=== PATIENT | female | born 1970 | race Hispanic/Latino ===

== ENCOUNTER 2018-05-30 13:58 | Emergency (ER) | payer OTHER ==
[2018-05-30] VITALS (7 sets, daily range): BP systolic 117–195; BP diastolic 51–111
[~2018-05-30] VITALS: Ht 149.9 cm; Wt 59.0 kg
[~2018-05-30 13:58] MED LIST: CIPRO500 MG PO; NORCO 5-325 TA1 EACH ORAL; NOVOLIN 70/305 UNIT1 SUBQ; ONDANSETRON ODT4 MG BC; RANITIDINE HCL150 MG ORAL
--- NOTE | 2018-05-30 14:03 | NUR ---
ED Nurse Note: Patient brought in to ER by ambulance from home due to severe abdominal pain 12/03. Pt aao x4 and Italian speaker and son who speaks Montenegrin at the bedside. pt has shunt on RUE and gets dialysis every T, , S and per son, she got last dialysis this morning. 5 Lt toes and 1 Rt toe are amputated. site clean and intact.
--- NOTE | 2018-05-30 14:05 | NUR ---
ED Nurse Note: pt currently having N/V but no diarrhea.
--- NOTE | 2018-05-30 14:10 | Emergency Room Report ---
History of Present Illness General Chief Complaint: Abdominal Pain Source: Patient, Medical Record Present Illness HPI Patient is a 47-year-old female presented after increased left upper quadrant abdominal pain. Patient had onset of symptoms approximate 3 days ago. This had worsened over time. Patient had prior history of abdominal surgeries which included biliary stent as well as renal surgery. Patient is currently on dialysis and has had previous amputation to the right foot. Patient is patient reports having dialysis today. Patient had reportedly had some episodes of vomiting which she denied having any hematemesis or bloody stools. Allergies: Coded Allergies: No Known Allergies (Unverified , 11/10/12) Patient History Last Menstrual Period: N/A Now: No : 1 Para: 1 Reviewed Nursing Documentation: PMH: Agreed; PSxH: Agreed Nursing Documentation-PMH Hx Cardiac Problems: No - dialysis Hx Hypertension: Yes Hx Diabetes: Yes Hx Gastrointestinal Problems: Yes Hx Dialysis: Yes - skip on friday. Review of Systems All Other Systems: negative except mentioned in HPI Physical Exam Vital Signs Date Time Temp Pulse Resp B/P (MAP) Pulse Ox O2 Delivery O2 Flow Rate FiO2 05/30/18 13:46 98.8 80 18 132/92 100 Room Air General Appearance: alert, GCS 15, Chronically Ill Eyes: bilateral eye PERRL Neck: limited range of motion Respiratory: decreased breath sounds Cardiovascular #1: normal peripheral pulses Gastrointestinal: tenderness - left upper abdomen, other - ascites, right nephrostomy site c/d/i Musculoskeletal: normal inspection, other - foot metatarsal amputation Neurologic: normal inspection, alert, oriented x3, responsive Psychiatric: normal inspection Skin: normal inspection, normal color Medical Decision Making Diagnostic Impression: Primary Impression: Abdominal pain Additional Impressions: ESRD (end stage renal disease) Nephrostomy status Cardiomegaly ER Course Patient presented for abdominal pain. Differential diagnoses included ischemic bowel, appendicitis, perforated viscus, abdominal aortic aneurysm, inferior myocardial infarction, viral gastroenteritis among others. Because of complexity of patient's case laboratory testing and imaging studies were ordered. Laboratory testing showed normal white blood count. Patient was noted to have some hematuria. CT the abdomen pelvis ordered without contrast due to patient's prior history of end-stage renal disease.Patient was given pain medications IV as well as acid blockers. She was noted to have some improvement.CT of the abdomen pelvis read by radiology showed right-sided percutaneous nephrostomy without hydronephrosis nonspecific thickening of the GI tract as well as a large amount of fluid in the peritoneal cavity patient was discussed with Dr. Koffi Kay for transfer to [facility]. Labs Test 05/30/18 14:15 05/30/18 15:13 White Blood Count 7.4 K/UL (4.8-10.8) Red Blood Count 3.34 M/UL (4.20-5.40) Hemoglobin 10.2 G/DL (12.0-16.0) Hematocrit 31.7 % (37.0-47.0) Mean Corpuscular Volume 95 FL (80-99) Mean Corpuscular Hemoglobin 30.4 PG (27.0-31.0) Mean Corpuscular Hemoglobin Concent 32.1 G/DL (32.0-36.0) Red Cell Distribution Width 14.4 % (11.6-14.8) Platelet Count 172 K/UL (150-450) Mean Platelet Volume 9.4 FL (6.5-10.1) Neutrophils (%) (Auto) 77.6 % (45.0-75.0) Lymphocytes (%) (Auto) 9.8 % (20.0-45.0) Monocytes (%) (Auto) 3.3 % (1.0-10.0) Eosinophils (%) (Auto) 7.5 % (0.0-3.0) Basophils (%) (Auto) 1.8 % (0.0-2.0) Prothrombin Time 11.4 SEC (9.30-11.50) Prothromb Time International Ratio 1.1 (0.9-1.1) Activated Partial Thromboplast Time 30 SEC (23-33) Sodium Level 137 MMOL/L (136-145) Potassium Level 3.9 MMOL/L (3.5-5.1) Chloride Level 97 MMOL/L (98-107) Carbon Dioxide Level 30 MMOL/L (21-32) Anion Gap 10 mmol/L (5-15) Blood Urea Nitrogen 10 mg/dL (7-18) Creatinine 2.6 MG/DL (0.55-1.30) Estimat Glomerular Filtration Rate 19.8 mL/min (>60) Glucose Level 208 MG/DL (74-106) Calcium Level 8.9 MG/DL (8.5-10.1) Total Bilirubin 0.5 MG/DL (0.2-1.0) Aspartate Amino Transf (AST/SGOT) 32 U/L (15-37) Alanine Aminotransferase (ALT/SGPT) 24 U/L (12-78) Alkaline Phosphatase 402 U/L (46-116) Total Protein 8.5 G/DL (6.4-8.2) Albumin 3.1 G/DL (3.4-5.0) Globulin 5.4 g/dL Albumin/Globulin Ratio 0.6 (1.0-2.7) Lipase 66 U/L (73-393) Urine Color Yellow Urine Appearance Cloudy Urine pH 8 (4.5-8.0) Urine Specific Grace 1.030 (1.005-1.035) Urine Protein 4+ (NEGATIVE) Urine Glucose (UA) 3+ (NEGATIVE) Urine Ketones Negative (NEGATIVE) Urine Blood 5+ (NEGATIVE) Urine Nitrite Negative (NEGATIVE) Urine Bilirubin Negative (NEGATIVE) Urine Urobilinogen Normal MG/DL (0.0-1.0) Urine Leukocyte Esterase 3+ (NEGATIVE) Urine RBC Tntc /HPF (0 - 2) Urine WBC 15-20 /HPF (0 - 2) Urine Squamous Epithelial Cells Moderate /LPF (NONE/OCC) Urine Amorphous Sediment Many /LPF (NONE) Urine Bacteria Many /HPF (NONE) EKG Diagnostic Results Rate: normal - 84 Rhythm: NSR ST Segments: no acute changes Rhythm Strip Diag. Results EP Interpretation: yes Rhythm: NSR, no PVC's, no ectopy Last Vital Signs Date Time Temp Pulse Resp B/P (MAP) Pulse Ox O2 Delivery O2 Flow Rate FiO2 05/30/18 13:55 84 28 Room Air 05/30/18 13:55 98.0 193/79 100 Status: improved Disposition: XFER SHT-TRM HOSP Condition: Serious Arron Toro MD May 30, 2018 14:10
--- NOTE | 2018-05-30 14:10 | NUR ---
ED Nurse Note: Artificial urinary track opening in Rt lower back present attatching to the bag. urine sample was collected from urine bag.
[2018-05-30] MEDS ORDERED: Pantoprazole Inj IV ONE (14:15)
[2018-05-30] MEDS ORDERED: Morphine Sulfate 4mg/ml Inj (IV USE ONLY) IVP ONE (14:15)
[2018-05-30 14:35] LABS: BASOPHILS % (AUTO) 1.8 % (0.0-2.0); EOSINOPHILS % (AUTO) 7.5 % (0.0-3.0); HEMATOCRIT 31.7 % (37.0-47.0); HEMOGLOBIN 10.2 G/DL (12.0-16.0); LYMPHOCYTES % (AUTO) 9.8 % (20.0-45.0); MEAN CORPUSCULAR VOLUME 95 FL (80-99); MONOCYTES % (AUTO) 3.3 % (1.0-10.0); NEUTROPHILS % (AUTO) 77.6 % (45.0-75.0); PLATELET COUNT 172 K/UL (150-450); RED BLOOD COUNT 3.34 M/UL (4.20-5.40); RED CELL DISTRIBUTION WIDTH 14.4 % (11.6-14.8); WHITE BLOOD COUNT 7.4 K/UL (4.8-10.8)
[2018-05-30 14:39] LABS: INR 1.1 (0.9-1.1)
[2018-05-30 14:50] LABS: ANION GAP 10 mmol/L (5-15); BLOOD UREA NITROGEN 10 mg/dL (7-18); CALCIUM 8.9 MG/DL (8.5-10.1); CARBON DIOXIDE 30 MMOL/L (21-32); CHLORIDE 97 MMOL/L (98-107); CREATININE 2.6 MG/DL (0.55-1.30); POTASSIUM 3.9 MMOL/L (3.5-5.1); SODIUM 137 MMOL/L (136-145)
[2018-05-30 14:55] LABS: ALANINE AMINOTRANSFERASE 24 U/L (12-78); ALBUMIN 3.1 G/DL (3.4-5.0); ALBUMIN/GLOBULIN RATIO 0.6 (1.0-2.7); ALKALINE PHOSPHATASE 402 U/L (46-116); ASPARTATE AMINO TRANSFERASE 32 U/L (15-37); BILIRUBIN,TOTAL 0.5 MG/DL (0.2-1.0)
[2018-05-30 15:21] LABS: APPEARANCE,URINE CLOUDY; BILIRUBIN, URINE NEGATIVE (NEGATIVE); GLUCOSE, URINE (UA) 3+ (NEGATIVE); KETONES,URINE NEGATIVE (NEGATIVE); LEUKOCYTE ESTERASE ,URINE 3+ (NEGATIVE); NITRITE,URINE NEGATIVE (NEGATIVE); PH,URINE 8 (4.5-8.0); PROTEIN,URINE 4+ (NEGATIVE); UROBILINOGEN,URINE NORMAL MG/DL (0.0-1.0)
[2018-05-30 15:27] LABS: COLOR,URINE YELLOW
--- NOTE | 2018-05-30 15:40 | NUR ---
ED Nurse Note: Pt reported improved pain 5/10 but blood pressure still high 210/92. ERMD made aware.
[2018-05-30] MEDS ORDERED: cefTRIAXone 1 GM in NS 55 ML IVPB ONE (16:30)
--- NOTE | 2018-05-30 16:42 | Diagnostic Imaging Report ---
EXAM: CT Abdomen and Pelvis Without Intravenous Contrast CLINICAL HISTORY: ABD PAIN TECHNIQUE: Axial computed tomography images of the abdomen and pelvis without intravenous contrast. CTDI is 11.49 mGy and DLP is 641 mGy-cm. One or more of the following dose reduction techniques were used: automated exposure control, adjustment of the mA and/or kV according to patient size, use of iterative reconstruction technique. COMPARISON: No relevant prior studies available. FINDINGS: Heart: Cardiomegaly and small pericardial fluid. ABDOMEN: Liver: Unremarkable Gallbladder and bile ducts: Cholecystectomy. Pancreas: Unremarkable. Spleen: Unremarkable. Adrenals: Bulbous left adrenal gland. Kidneys and ureters: Right percutaneous nephrostomy. No hydronephrosis. Stomach and bowel: Nonspecific thickening of the GI tract in light of the fluid in the peritoneal cavity PELVIS: Appendix: Unremarkable appendix. Bladder: Unremarkable. Reproductive: Unremarkable. ABDOMEN and PELVIS: Intraperitoneal space: Large amount of fluid in the peritoneal cavity. Edema in the mesentery. Bones/joints: No acute fracture. Soft tissues: Mild anasarca. Vasculature: Extensive vascular calcifications. No abdominal aortic aneurysm. Lymph nodes: No enlarged lymph nodes. IMPRESSION: 1. Large amount of fluid in the peritoneal cavity. 2. Unremarkable appendix.
--- NOTE | 2018-05-30 17:55 | NUR ---
ED Nurse Note: Pt was informed that she will be admitted by ERMD and agreed with it.
--- NOTE | 2018-05-30 18:49 | NUR ---
ED Nurse Note: Started oxygen at 2L/min. RA 91%, 100 at 2L/min
--- NOTE | 2018-05-30 19:05 | NUR ---
HAND-OFF: Report given to TOMI Agustin. report will be given after accepting doctor is assigned.
--- NOTE | 2018-05-30 21:18 | NUR ---
ED Nurse Note: REPORT GIVENT O EDUARDO, [facility]URSING [employer] AT [facility]
--- NOTE | 2018-05-30 21:23 | NUR ---
ED Nurse Note: INFORMED ERMD THAT BP IS 186/84. WILL AWAIT NEW ORDERS.
--- NOTE | 2018-05-30 22:45 | NUR ---
ED Nurse Note: [facility], PT IS AOX4, PT SKIN INTACT, DENIES PAIN AND IS IN NO ACUTE DISTRESS. PT IS CURRENTLY ON 2 L NASAL CANNULA. VSS AT THE MOMENT. PT CARRYING HER PURSE AND CELLPHONE. ALL OTHER BELONGINGS HAVE BEEN GIVEN TO [facility].
--- NOTE | 2018-06-01 19:25 | Cardiology Report ---
APPROVED REPORT EKG Measurement Heart [id number] Normal sinus rhythm Abnormal QRS-T angle, consider primary T wave abnormality Prolonged QT Abnormal ECG
== END 2018-05-30 22:45 | disposition short-term general hospital (02) ==
LOC: EDBD 13:58 → EMR 14:30 → EDBEDREQ 17:38 → EMR 22:45
DX: E11.22 Type 2 diabetes mellitus with diabetic chronic kidney disease (principal); I12.0 Hypertensive chronic kidney disease with stage 5 chronic kidney disease or end stage renal disease; N18.6 End stage renal disease; Z99.2 Dependence on renal dialysis; I51.7 Cardiomegaly; Z93.6 Other artificial openings of urinary tract status
CPT/HCPCS: 36415; 74176; 80053; 81003; 83690; 85025; 85610; 85730; 87086; 93005; 96365; 96375; 99285; C9113; J0360; J0696; J2270; J2405

== ENCOUNTER 2020-01-07 22:04 | Inpatient (IN) | payer OTHER ==
[~2020-01-07] VITALS: Ht 152.4 cm; Wt 59.0 kg
[2020-01-07] MEDS ORDERED: Mylanta II UD 30ml ORAL ONE (22:15)
[2020-01-07] MEDS ORDERED: Dicyclomine HCl 10mg/5ml oral soln ORAL ONE (22:15)
[2020-01-07] MEDS ORDERED: Lidocaine 2% Visc 15ml soln ORAL ONE (22:15)
[2020-01-07] MEDS ORDERED: niCARdipine HCl 200 ML IV SCH (22:15)
[2020-01-07] MEDS ORDERED: Morphine Sulfate 4mg/ml Inj (IV USE ONLY) IVP ONE (22:15)
[2020-01-07 22:30] VITALS: BP 221/81
--- NOTE | 2020-01-07 22:31 | Emergency Room Report ---
History of Present Illness General Chief Complaint: Abdominal Pain Source: Patient Present Illness HPI 49-year-old female with history of hypertension, diabetes, dialysis Friday, here with abdominal pain. Patient says that she gets severe epigastric abdominal pain every single time she gets dialysis. She received dialysis today without any complications and was able to complete the entire c ourse of dialysis. Said that her abdominal pain started earlier today after her dialysis appointment. It is sharp in nature, located epigastric region, 10 out of 10 in intensity. She has not taken any medications for the pain. She appears uncomfortable in the emergency department writhing in pain. Says pain radiates "everywhere." Denies fevers, chills, chest pain, palpitations, shortness of breath, diarrhea. Has felt nauseous but is not vomiting. Patient does have a history of percutaneous nephrostomy tube which has since been removed, as well as biliary stent. 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 COVID-19 Screening: Negative COVID-19 COVID-19 Testing Source: [employer] Patient History Now: No Nursing Documentation-[facility] Past Medical History: No History, Except For Hx Cardiac Problems: Yes Hx Hypertension: Yes Hx Diabetes: Yes Hx Dialysis: Yes - MWF RIGHT ARM SHUNT History Of Psychiatric Problem: No Hx Neurological Problems: No Physical Exam Vital Signs Date Time Temp Pulse Resp B/P (MAP) Pulse Ox O2 Delivery O2 Flow Rate FiO2 01/07/20 21:56 97.3 79 22 241/111 (154) 96 Room Air Sp02 EP Interpretation: reviewed, normal General Appearance: alert, non-toxic, other - Patient writhing in pain, clutching upper abdomen Head: normocephalic, atraumatic Eyes: bilateral eye normal inspection, bilateral eye PERRL ENT: hearing grossly normal, normal pharynx, no angioedema, normal voice Neck: full range of motion, supple/symm/no masses Respiratory: chest non-tender, lungs clear, normal breath sounds, speaking full sentences Cardiovascular #1: regular rate, rhythm, no edema Cardiovascular #2: 2+ carotid (R), 2+ carotid (L), 2+ radial (R), 2+ radial (L), 2+ dorsalis pedis (R), 2+ dorsalis pedis (L) Gastrointestinal: normal bowel sounds, soft, non-distended, no guarding, no rebound, other - Multiple well-healed surgical scars. No distention or rebound or guarding. Pain in the midline epigastric region on palpation Rectal: deferred Genitourinary: normal inspection, no CVA tenderness Musculoskeletal: back normal, normal range of motion, gait/station normal, non- tender, other - Status post right foot partial amputation Neurologic: alert, motor strength/tone normal, oriented x3, sensory intact, responsive, speech normal Psychiatric: judgement/insight normal, memory normal, mood/affect normal, no suicidal/homicidal ideation Lymphatic: no adenopathy Medical Decision Making Diagnostic Impression: Primary Impression: Abdominal pain Additional Impressions: Hyperglycemia Long QT interval Shortness of breath Hypoxia Pneumonia Pleural effusion ESRD (end stage renal disease) on dialysis Hypertensive emergency CHF (congestive heart failure) ER Course EKG: NSR, no ischemia, normal axis. Prolonged QTc 523 ms. Rate 61 bpm.. No ectopy Rhythm strip: patient monitored for arrhythmias - no malignant dysrhythmias, runs of PVCs, nor pauses noted Total critical care time: Approximately 45 minutes Due to a high probability of clinically significant, life threatening deterioration, the patient required the highest level of preparedness to intervene emergently and I personally spent this critical care time directly and personally managing the patient. This critical care time included obtaining a history, examining the patient, pulse oximetry, ordering and reviewing studies, ordering treatments, evaluating response to treatment and updating management plan as needed, frequent reassessment and discussion with other providers as well as arranging for ultimate disposition. This critical to care time was performed to assess and manage the high probability of life-threatening deterioration that could result in multiorgan failure. This critical care time is separate from the separately billable procedures and treating other patients. Chest x-ray: Indication chest pain: Right lower lobe airspace disease concerning for consolidation. No bony abnormalities. No free air under the diaphragm. No pneumothorax. CT abdomen pelvis: IMPRESSION: 1. Severe right hydronephrosis. No obvious obstructing stone or mass. 2. Moderate peritoneal and pelvic free fluid. 3. Prominent atherosclerotic vascular disease. CT chest: IMPRESSION: Large right pleural effusion with associated compressive atelectasis. Laboratory Tests Test 11/13/20 22:09 01/07/20 22:20 White Blood Count 5.9 K/UL (4.8-10.8) Red Blood Count 3.72 M/UL (4.20-5.40) L Hemoglobin 10.9 G/DL (12.0-16.0) L Hematocrit 34.7 % (37.0-47.0) L Mean Corpuscular Volume 93 FL (80-99) Mean Corpuscular Hemoglobin 29.4 PG (27.0-31.0) Mean Corpuscular Hemoglobin Concent 31.5 G/DL (32.0-36.0) L Red Cell Distribution Width 15.8 % (11.6-14.8) H Platelet Count 243 K/UL (150-450) Mean Platelet Volume 8.2 FL (6.5-10.1) Neutrophils (%) (Auto) 72.9 % (45.0-75.0) Lymphocytes (%) (Auto) 18.8 % (20.0-45.0) L Monocytes (%) (Auto) 6.5 % (1.0-10.0) Eosinophils (%) (Auto) 0.5 % (0.0-3.0) Basophils (%) (Auto) 1.5 % (0.0-2.0) Prothrombin Time 11.0 SEC (9.30-11.50) Prothrombin Time INR 1.0 (0.9-1.1) Activated Partial Thromboplast Time 30 SEC (23-33) Sodium Level 129 MMOL/L (136-145) L Potassium Level 4.8 MMOL/L (3.5-5.1) Chloride Level 92 MMOL/L (98-107) L Carbon Dioxide Level 29 MMOL/L (21-32) Anion Gap 9 mmol/L (5-15) Blood Urea Nitrogen 33 mg/dL (7-18) H Creatinine 5.2 MG/DL (0.55-1.30) H Estimated Glomerular Filtration Rate 8.8 mL/min (>60) Glucose Level 156 MG/DL (74-106) H Lactic Acid Level 1.30 mmol/L (0.4-2.0) Calcium Level 8.9 MG/DL (8.5-10.1) Magnesium Level 2.6 MG/DL (1.8-2.4) H Total Bilirubin 0.6 MG/DL (0.2-1.0) Aspartate Amino Transferase (AST) 33 U/L (15-37) Alanine Aminotransferase (ALT) 42 U/L (12-78) Alkaline Phosphatase 489 U/L (46-116) H Troponin I 0.024 ng/mL (0.000-0.056) Pro-B-Type Natriuretic Peptide > 75410 pg/mL (0-125) H Total Protein 9.0 G/DL (6.4-8.2) H Albumin 3.5 G/DL (3.4-5.0) Globulin 5.5 g/dL Albumin/Globulin Ratio 0.6 (1.0-2.7) L Lipase 83 U/L (73-393) Human Chorionic Gonadotropin, Quant < 1 mIU/mL (1-6) L POC Whole Blood Glucose 156 MG/DL (74-106) H 41-year-old female with history of end-stage renal disease on dialysis Friday, hypertension here with epigastric abdominal pain. Patient was writhing in pain on arrival to the emergency department. Review of patient's records show that she has been here several times for abdominal pain. However when the patient arrived she had an initially unreadable high blood pressure and she was given pain medication and then her blood pressure was read at 240/140. The patient received labetalol IV which did not resolve her hypertension. She then received multiple doses of hydralazine which again were unsuccessful in reducing the patient's blood pressure. Patient was then started on a nitroglycerin drip. Her chest x-ray showed a very large right pleural effusion with possible underlying consolidation. CT chest abdomen pelvis with IV contrast showed right-sided pleural effusion with underlying atelectasis versus consolidation. CT of the abdomen pelvis showed hydronephrosis which the patient has had a history of in the past and some free fluid within the peritoneum and pelvis as well as atherosclerotic disease. Patient was given Dilaudid and remained pain-free throughout the rest of her stay in the emergency department. The patient initially had a normal oxygen saturation on room air but soon became hypoxic with an oxygen saturation of around 75% on room air and she was complaining of shortness of breath. She was placed on a nonrebreather mask and kept on oxygen flow rate of 10 L/min. Patient's vital signs gradually improved and she continued to have normal oxygen saturation throughout the rest of her stay in the emergency department. Patient admitted to ICU. Last Vital Signs Date Time Temp Pulse Resp B/P (MAP) Pulse Ox O2 Delivery O2 Flow Rate FiO2 01/07/20 21:56 97.3 79 22 241/111 (154) 96 Room Air Referrals: NON PHYSICIAN (PCP) Sanjeev Ayala M.D. Jan 07, 2020 22:31
--- NOTE | 2020-01-07 22:33 | NUR ---
ED Nurse Note: Patient brought in by ambulance [id number] from home d/t aching upper abdominal pain 10/ chronic for 2 years. Patient aao x 4 and normally ambulatory. Per EMS, pt hypertensive at 241/111 en route. Patient placed on air sampling and monitoring, line established on left hand 22g IV, blood drawn and sent to lab. Patient hypertensive at 221/81, ERMD aware.
[2020-01-07 22:39] LABS: BASOPHILS % (AUTO) 1.5 % (0.0-2.0); EOSINOPHILS % (AUTO) 0.5 % (0.0-3.0); HEMATOCRIT 34.7 % (37.0-47.0); HEMOGLOBIN 10.9 G/DL (12.0-16.0); LYMPHOCYTES % (AUTO) 18.8 % (20.0-45.0); MEAN CORPUSCULAR VOLUME 93 FL (80-99); MONOCYTES % (AUTO) 6.5 % (1.0-10.0); NEUTROPHILS % (AUTO) 72.9 % (45.0-75.0); PLATELET COUNT 243 K/UL (150-450); RED BLOOD COUNT 3.72 M/UL (4.20-5.40); RED CELL DISTRIBUTION WIDTH 15.8 % (11.6-14.8); WHITE BLOOD COUNT 5.9 K/UL (4.8-10.8)
--- NOTE | 2020-01-07 22:39 | NUR ---
ED Nurse Note: Patient has dialysis shunt on right upper arm, reports TThS and states that she went on 01/06/20.
[2020-01-07] MEDS ORDERED: Labetalol 5mg/ml 20ml vial IV ONE (22:45)
[2020-01-07] MEDS ORDERED: HYDROmorphone 1mg/ml Carpuject IVP ONE (22:45)
[2020-01-07] MEDS ORDERED: Omnipaque-300 100ml vial INJ PRN (22:45)
[2020-01-07] MEDS ORDERED: LORazepam Inj 2mg/ml 1ml IV ONE (22:45)
[2020-01-07 22:51] LABS: ANION GAP 9 mmol/L (5-15); BLOOD UREA NITROGEN 33 mg/dL (7-18); CALCIUM 8.9 MG/DL (8.5-10.1); CARBON DIOXIDE 29 MMOL/L (21-32); CHLORIDE 92 MMOL/L (98-107); CREATININE 5.2 MG/DL (0.55-1.30); POTASSIUM 4.8 MMOL/L (3.5-5.1); SODIUM 129 MMOL/L (136-145)
[2020-01-07 22:55] LABS: ALANINE AMINOTRANSFERASE 42 U/L (12-78); ALBUMIN 3.5 G/DL (3.4-5.0); ALBUMIN/GLOBULIN RATIO 0.6 (1.0-2.7); ALKALINE PHOSPHATASE 489 U/L (46-116); ASPARTATE AMINO TRANSFERASE 33 U/L (15-37); BILIRUBIN,TOTAL 0.6 MG/DL (0.2-1.0)
[2020-01-07] MEDS ORDERED: Omnipaque-300 100ml vial INJ ONE (23:00)
--- NOTE | 2020-01-07 23:08 | Diagnostic Imaging Report ---
EXAM: XR Chest, 1 View CLINICAL HISTORY: ABD PAIN TECHNIQUE: Frontal view of the chest. COMPARISON: Chest radiograph dated 02/25/2018 FINDINGS: Lungs: Patchy airspace consolidation of the right mid and lower lung. There is obscuration of the right heart border and diaphragm. Pleural space: Unremarkable. No pneumothorax. Heart: Unremarkable. No cardiomegaly. Mediastinum: Unremarkable. Bones/joints: Unremarkable. IMPRESSION: Right airspace disease concerning for pneumonia in the appropriate clinical setting.
[2020-01-07] MEDS ORDERED: Vancomycin 1 GM in NS 275 ML IVPB ONE (23:15)
[2020-01-07] MEDS ORDERED: Cefepime HCl 1 GM in D5W 55 ML IVPB ONE (23:15)
--- NOTE | 2020-01-07 23:20 | NUR ---
ED Nurse Note: Patient taken to CT
--- NOTE | 2020-01-07 23:53 | NUR ---
ED Nurse Note: Blood culture drawn and sent to lab
[2020-01-08] VITALS (54 sets, daily range): BP systolic 161–211; BP diastolic 54–114
[2020-01-08] MEDS ORDERED: Nitroglycerin 2% oint pkt TOPIC ONE
--- NOTE | 2020-01-08 00:10 | Diagnostic Imaging Report ---
EXAM: CT Abdomen and Pelvis With Intravenous Contrast CLINICAL HISTORY: PAIN TECHNIQUE: Axial computed tomography images of the abdomen and pelvis with intravenous contrast. CTDI is 8.8 mGy and DLP is 462.3 mGy-cm. One or more of the following dose reduction techniques were used: automated exposure control, adjustment of the mA and/or kV according to patient size, use of iterative reconstruction technique. COMPARISON: CT abdomen and pelvis dated 05/30/2018. FINDINGS: Lung bases: See below. Pleural space: Large right pleural effusion. Associated compressive atelectasis. ABDOMEN: Liver: Unremarkable. No mass. Gallbladder and bile ducts: Unremarkable. No calcified stones. No ductal dilation. Pancreas: Unremarkable. No mass. No ductal dilation. Spleen: Unremarkable. No splenomegaly. Adrenals: Unremarkable. No mass. Kidneys and ureters: Atrophy of the left kidney. Severe right hydronephrosis. No obvious obstructing stone or mass. Stomach and bowel: Unremarkable. No obstruction. No mucosal thickening. PELVIS: Appendix: No findings to suggest acute appendicitis. Bladder: Unremarkable. No mass. Reproductive: Unremarkable as visualized. ABDOMEN and PELVIS: Intraperitoneal space: Moderate abdominal and pelvic free fluid. No free air. Bones/joints: No acute fracture. No dislocation. Soft tissues: Unremarkable. Vasculature: Diffuse atherosclerotic vascular disease. No abdominal aortic aneurysm. Lymph nodes: Unremarkable. No enlarged lymph nodes. IMPRESSION: 1. Severe right hydronephrosis. No obvious obstructing stone or mass. 2. Moderate peritoneal and pelvic free fluid. 3. Prominent atherosclerotic vascular disease. EXAM: CT Chest With Intravenous Contrast CLINICAL HISTORY: PAIN TECHNIQUE: Axial computed tomography images of the chest with intravenous contrast. CTDI is 8.8 mGy and DLP is 462.3 mGy-cm. One or more of the following dose reduction techniques were used: automated exposure control, adjustment of the mA and/or kV according to patient size, use of iterative reconstruction technique. COMPARISON: Chest radiograph dated 01/07/2020. FINDINGS: Lungs: See below. Pleural space: Large right pleural effusion. Associated compressive atelectasis. No pneumothorax. Heart: Unremarkable. No cardiomegaly. No significant pericardial effusion. Bones/joints: Unremarkable. No acute fracture. No dislocation. Soft tissues: Unremarkable. Vasculature: Unremarkable. No thoracic aortic aneurysm. Lymph nodes: Unremarkable. No enlarged lymph nodes. IMPRESSION: Large right pleural effusion with associated compressive atelectasis.
--- NOTE | 2020-01-08 00:11 | NUR ---
ED Nurse Note: Patient reports she is unable to produce urine. Addendum: 01/08/20 at 0012 by IOROPYAZAN ED Nurse Note: Patient reports she is unable to produce urine, KRISSY blanchard.
[2020-01-08] MEDS ORDERED: Nitroglycerin 50mg/250ml btl 250 ML IV SCH ×2 (00:15→05:00)
--- NOTE | 2020-01-08 00:23 | NUR ---
ED Nurse Note: Per ERMD, discontinue nitrobid ointment and start nitroglycerin drip. Nitrobid ointment removed, skin cleaned and dried.
--- NOTE | 2020-01-08 01:18 | NUR ---
ED Nurse Note: Report given to TOMI Garcias.
--- NOTE | 2020-01-08 02:45 | NUR ---
TRANSFER TO FLOOR: Patient transferred to ICU as ordered, per ERMD. Report given to TOMI Garcias. Patient transported via gurney in stable condition accompanied by RN and soil field technician.
--- NOTE | 2020-01-08 02:50 | NUR ---
NURSE NOTES: Patient received from ED from Zoie KRISHNA. Patient brought in Alert and Oriented to place, time, person and date. Patient brought in with Nitro gtt at 40mcg/hr. Patient is ESRD-anuric. ANABELLA AV shunt, bruit and thrill noted. On NC at 2L = SpO2 98%. L FA 20g noted-patent and intact. NAD at this time, will continue to monitor.
--- NOTE | 2020-01-08 03:07 | NUR ---
NURSE NOTES: Called Dr. Quick and left message for admission orders, awaiting for call back.
--- NOTE | 2020-01-08 03:10 | NUR ---
NURSE NOTES: increased gtt to 40mcg/hr BP 209/85. Patient is also noted to be legally blind on both eyes.
--- NOTE | 2020-01-08 05:26 | NUR ---
NURSE NOTES: Blood pressure 207/92, Apresoline 10mg IVP given (PRN orders) Patient currently at 50mcg Nitro gtt. Patient AAOX4 HR is 68 NSR, pulses present. 2L NC 97% SpO2, Addendum: 01/08/20 at 0619 by HAYLEY ROSALES RN Correction not 50mcg but 90mcg
[2020-01-08 05:29] LABS: BASOPHILS % (AUTO) 1.6 % (0.0-2.0); HEMATOCRIT 34.5 % (37.0-47.0); HEMOGLOBIN 10.5 G/DL (12.0-16.0); LYMPHOCYTES % (AUTO) 16.5 % (20.0-45.0); MEAN CORPUSCULAR VOLUME 98 FL (80-99); MONOCYTES % (AUTO) 6.7 % (1.0-10.0); NEUTROPHILS % (AUTO) 75.2 % (45.0-75.0); PLATELET COUNT 231 K/UL (150-450); RED BLOOD COUNT 3.52 M/UL (4.20-5.40); WHITE BLOOD COUNT 5.2 K/UL (4.8-10.8)
[2020-01-08 05:49] LABS: ALBUMIN 3.2 G/DL (3.4-5.0); ALBUMIN/GLOBULIN RATIO 0.6 (1.0-2.7); BILIRUBIN,TOTAL 0.5 MG/DL (0.2-1.0); CALCIUM 8.2 MG/DL (8.5-10.1); CREATININE 5.3 MG/DL (0.55-1.30); POTASSIUM 5.7 MMOL/L (3.5-5.1)
[2020-01-08 06:27] LABS: PHOSPHORUS 7.3 MG/DL (2.5-4.9)
[2020-01-08] MEDS: NovoLOG Insulin Flexpen SUBQ SCH ×5 (06:30→21:00)
[2020-01-08] MEDS: Hydromorphone 0.5mg/0.5ml inj IVP PRN ×2 (06:36→15:37)
--- NOTE | 2020-01-08 06:36 | NUR ---
NURSE NOTES: Patient has sudden epigastric pain rated at 10/10 pain scale, Dilaudid 0.5mg/ml and Zofran IVP
[2020-01-08] MEDS: DiphenhydrAMINE 50mg/ml Inj IVP PRN ×2 (07:29→15:32)
--- NOTE | 2020-01-08 07:30 | NUR ---
NURSE NOTES: Pt received from TOMI Garcias. Pt is awake, AAO x4, able to follow simple commands, bilat pupils equal and round 3 mm with brisk rxn to light, pt is legally blind (both eyes), pt denies pain at this time. 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 Radial and dorsalis pedis pulses 1+. Afebrile. No edema noted. Pt is on 2L NC with spO2 98-99%. Bilat upper lung lobes CTA and lower lobes diminished. Abdomen is soft and round with active bowel sounds to all quadrants. Pt is anuric (receives regular HD T/TH/Sat). Skin alterations noted. Pt has two 20g LFA IVs - one of them running nitroglycerin gtt at 120 mcg/min. SBP noted fluctuating in the 170-180s (Pt just received PRN hydralazine per TOMI Garcias). Bed in lowest position, alarm on, side rails up x 2, call light within reach. Will continue to monitor.
--- NOTE | 2020-01-08 07:30 | NUR ---
NURSE NOTES: Pt c/o generalized itching. Dr Bass contacted - order received for 25 mg benadryl IVP PRN Q 6 HR for itching.
--- NOTE | 2020-01-08 07:50 | History & Physical ---
History and Physical History & Physicial History and Physical HPI Patient is a 49-year-old woman with history of End stage renal disease on HD, Right Hydronephosis, Hypertension, Diabetes.She receives dialysis on Friday.Admitted with Hypertensive crisis and noted to have Pneumonia and large right Pleural effusion. Complained of epigastric abdominal pain which started after HD, which is a recurring problem when she receives dialysis. She last received dialysis on 01/07/2020. The abdominal pain is sharp in nature, located epigastric region, denies fevers, chills, chest pain, palpitations, shortness of breath, diarrhea. Has nausea, no vomiting. Patient does have a history of percutaneous nephrostomy tube which has since been removed, as well as biliary stent. Covid negative on admission Allergies: No Known Allergies] Past Medical History: End stage renal disease on HD, Right Hydronephosis, Hy pertension, Congestive heart failure, Diabetes. Past Surgical History: Right arm shunt,percutaneous nephrostomy tube which has since been removed, as well as biliary stent. Status post right foot partial amputation Family History: [place] Social History: Negative Review of Systems: Negative aside from above Physical Exam Vital Signs noted Date Time Temp Pulse Resp B/P (MAP) Pulse Ox O2 Delivery O2 Flow Rate FiO2 01/07/20 21:56 97.3 79 22 241/111 (154) 96 Room Air General Appearance: alert, non-toxic, other - in mild discomfort Head: normocephalic, atraumatic Eyes: bilateral eye normal inspection, bilateral eye PERRL ENT: hearing grossly normal, normal pharynx, no swelling, normal voice,moist mm Neck: no LN Respiratory: chest non-tender, lungs clear, normal breath sounds, reduced right basal BS Cardiovascular: regular rate, rhythm, no edema, HS1,HS2, normal Gastrointestinal: normal bowel sounds, soft, non-distended, no guarding, no rebound, old surgical scars. No distention or rebound or guarding. Pain in the midline epigastric region on palpation Genitourinary: normal inspection, no CVA tenderness Musculoskeletal: back normal, normal range of motion, gait/station normal, non- tender, other - Status post right foot partial amputation Neurologic: alert, motor strength/tone normal, oriented x3, sensory intact, responsive, speech normal,no seizures Medical Decision Making Impression: Hypertensive urgency ESRD (end stage renal disease) on dialysis, right hydronephrosis - had p revious nephrostomy Pneumonia Right Pleural effusion Congestive heart failure Hypoxia Abdominal pain Hyperglycemia Long QT interval Diabetes Pneumonia Plan: Antihypertensive Nitro gtt IV Antibiotics O2 PRN Renal consult HD as required ID consult Cardiology consult Thoracentesis ISS Analgesia PPX Monitor labs ICU care EKG: NSR, no ischemia, normal axis. Prolonged QTc 523 ms. Rate 61 bpm.. No ectopy Chest x-ray: Right lower lobe airspace disease concerning for consolidation. No bony abnormalities. No free air under the diaphragm. No pneumothorax. CT abdomen pelvis: 1. Severe right hydronephrosis. No obvious obstructing stone or mass. 2. Moderate peritoneal and pelvic free fluid. 3. Prominent atherosclerotic vascular disease. CT chest: Large right pleural effusion with associated compressive atelectasis. Laboratory Tests Test 01/07/20 22:09 01/07/20 22:20 White Blood Count 5.9 K/UL (4.8-10.8) Red Blood Count 3.72 M/UL (4.20-5.40) L Hemoglobin 10.9 G/DL (12.0-16.0) L Hematocrit 34.7 % (37.0-47.0) L Mean Corpuscular Volume 93 FL (80-99) Mean Corpuscular Hemoglobin 29.4 PG (27.0-31.0) Mean Corpuscular Hemoglobin Concent 31.5 G/DL (32.0-36.0) L Red Cell Distribution Width 15.8 % (11.6-14.8) H Platelet Count 243 K/UL (150-450) Mean Platelet Volume 8.2 FL (6.5-10.1) Neutrophils (%) (Auto) 72.9 % (45.0-75.0) Lymphocytes (%) (Auto) 18.8 % (20.0-45.0) L Monocytes (%) (Auto) 6.5 % (1.0-10.0) Eosinophils (%) (Auto) 0.5 % (0.0-3.0) Basophils (%) (Auto) 1.5 % (0.0-2.0) Prothrombin Time 11.0 SEC (9.30-11.50) Prothrombin Time INR 1.0 (0.9-1.1) Activated Partial Thromboplast Time 30 SEC (23-33) Sodium Level 129 MMOL/L (136-145) L Potassium Level 4.8 MMOL/L (3.5-5.1) Chloride Level 92 MMOL/L (98-107) L Carbon Dioxide Level 29 MMOL/L (21-32) Anion Gap 9 mmol/L (5-15) Blood Urea Nitrogen 33 mg/dL (7-18) H Creatinine 5.2 MG/DL (0.55-1.30) H Estimated Glomerular Filtration Rate 8.8 mL/min (>60) Glucose Level 156 MG/DL (74-106) H Lactic Acid Level 1.30 mmol/L (0.4-2.0) Calcium Level 8.9 MG/DL (8.5-10.1) Magnesium Level 2.6 MG/DL (1.8-2.4) H Total Bilirubin 0.6 MG/DL (0.2-1.0) Aspartate Amino Transferase (AST) 33 U/L (15-37) Alanine Aminotransferase (ALT) 42 U/L (12-78) Alkaline Phosphatase 489 U/L (46-116) H Troponin I 0.024 ng/mL (0.000-0.056) Pro-B-Type Natriuretic Peptide > 78576 pg/mL (0-125) H Total Protein 9.0 G/DL (6.4-8.2) H Albumin 3.5 G/DL (3.4-5.0) Globulin 5.5 g/dL Albumin/Globulin Ratio 0.6 (1.0-2.7) L Lipase 83 U/L (73-393) Human Chorionic Gonadotropin, Quant < 1 mIU/mL (1-6) L POC Whole Blood Glucose 156 MG/DL (74-106) H 4 Kilo Bass MD Jan 08, 2020 07:50
--- NOTE | 2020-01-08 08:00 | NUR ---
NURSE NOTES: Pt repositioned. Oral care provided. Afebrile. Wound care also provided.
[2020-01-08] MEDS ORDERED: Lisinopril 10mg tab ORAL SCH (09:00)
[2020-01-08] MEDS ORDERED: Metoprolol Tartrate 12.5mg TAB ORAL SCH (09:00)
--- NOTE | 2020-01-08 09:21 | Diagnostic Imaging Report ---
EXAM: US Duplex Bilateral Upper Extremities Veins CLINICAL HISTORY: SCREEN TECHNIQUE: Real-time duplex ultrasound scan of the bilateral upper extremity veins integrating B-mode two-dimensional vascular structure, Doppler spectral analysis, color flow Doppler imaging and compression. COMPARISON: No relevant prior studies available. FINDINGS: Right deep veins: No DVT in the right internal jugular, subclavian, axillary, or brachial veins. The veins demonstrate normal color flow, are normally compressible, with normal phasic flow and/or augmentation response. Right superficial veins: No thrombus in the visualized right basilic and cephalic veins. ----- Left deep veins: No DVT in the left internal jugular, subclavian, axillary, or brachial veins. The veins demonstrate normal color flow, are normally compressible, with normal phasic flow and/or augmentation response. Left superficial veins: No thrombus in the visualized left basilic and cephalic veins. IMPRESSION: No deep venous thrombosis within the bilateral lower extremities.
[2020-01-08] MEDS ORDERED: Hydrocortisone 1% Cr TOPIC PRN (09:30)
[2020-01-08] MEDS: Levemir Flexpen SUBQ SCH ×4 (09:32→21:08)
--- NOTE | 2020-01-08 10:00 | NUR ---
NURSE NOTES: Pt repositioned. Continues to deny pain at this time.
--- NOTE | 2020-01-08 11:00 | NUR ---
NURSE NOTES: venous duplex results confirmed negative - pt placed on BLE SCDs.
--- NOTE | 2020-01-08 11:45 | NUR ---
NURSE NOTES: HD initiated per LAUREN Finn RN.
[2020-01-08] MEDS ORDERED: Heparin Sod 1000 units/ml 10ml IV PRN (12:00)
--- NOTE | 2020-01-08 12:00 | NUR ---
NURSE NOTES: Dr Carcamo at bedside assessing pt - all labs for today reviewed. dialysis nurse at bedside initiating HD. Pt is afebrile. No c/o pain at this time.
[2020-01-08] MEDS: HydrALAZINE 50mg tab ORAL SCH ×2 (12:23→17:16)
[2020-01-08] MEDS: Lisinopril 20mg tab ORAL SCH (12:24)
--- NOTE | 2020-01-08 13:00 | NUR ---
NURSE NOTES: Pt placed on BO mattress.
[2020-01-08] MEDS ORDERED: NEURONTIN100 MG ORAL (13:11)
[2020-01-08] MEDS ORDERED: NORMODYNE200 MG ORAL (13:12)
[2020-01-08] MEDS ORDERED: TRAMADOL HCL50 MG ORAL (13:12)
--- NOTE | 2020-01-08 13:18 | NUR ---
NURSE NOTES: Pt seen by Dr Lara.
--- NOTE | 2020-01-08 14:00 | NUR ---
NURSE NOTES: Pt still receiving HD at this time. No acute events. SBP in the 160s.
--- NOTE | 2020-01-08 15:06 | Consultation ---
History of Present Illness General Reason for Hospitalization: Abdominal Pain Present Illness HPI This is a pleasant 49-year-old female with history of hypertension, diabetes, di alysis Friday who presented to [facility] [place]. She says that she gets severe epigastric abdominal pain every single time she gets dialysis. abdominal pain started earlier prior to admission after her dialysis appointment. It is sharp in nature, located epigastric region, 10 out of 10 in intensity. She has not taken any medications for the pain. She appears uncomfortable in the emergency department writhing in pain. Says pain radiates "everywhere." Denies fevers, chills, chest pain, palpitations, shortness of breath, diarrhea. Has felt nauseous but is not vomiting. Patient does have a history of percutaneous nephrostomy tube which has since been removed, as well as biliary stent. admitted for care and management. surgery called to evaluate and assist with care. Allergies: Coded Allergies: No Known Allergies (Unverified , 11/10/12) COVID-19 Screening Contact w/high risk pt: No Experienced COVID-19 symptoms?: No Coronavirus symptoms experienc: Nausea/Vomiting Medication History Scheduled Ciprofloxacin* (Cipro*), 500 MG PO BID Insulin Human Isophan/Regular (Humulin 70-30 Vial), 10 UNITS SUBQ PRN, (Reported) Labetalol HCl (Labetalol HCl), Unknown Dose ORAL EVERY 12 HOURS, (Reported) Ranitidine Hcl* (Zantac), 150 MG ORAL TWICE A DAY Scheduled PRN Hydrocodone Bit/Acetaminophen 5-325* ([place] 5-325*), 1 TAB ORAL Q6H PRN for For Pain Ondansetron Odt* (Zofran Odt*), 4 MG BC EVERY 6 HOURS PRN for Nausea & Vomiting Tramadol Hcl* (Ultram*), Unknown Dose ORAL Q6H PRN for For Pain, (Reported) Miscellaneous Medications Gabapentin* (Neurontin*), Unknown Dose ORAL, (Reported) Patient History History Provided By: Patient, Medical Record, PMD Healthcare decision maker Resuscitation status Advanced Directive on File Past Medical/Surgical History Past Medical/Surgical History: (1) Acute lower urinary tract infection (2) Dehydration (3) Hyperglycemia (4) CHF (congestive heart failure) (5) Long QT interval (6) Shortness of breath (7) Pleural effusion (8) Hypoxia (9) Pneumonia (10) Abdominal pain (11) ESRD (end stage renal disease) on dialysis (12) Hypertensive emergency Review of Systems Review of Symptoms General ROS: no weight loss or fever Psychological ROS: no depression or mood changes, no memory loss Ophthalmic ROS: no visual changes or eye irritation ENT ROS: no nasal congestion, hearing loss, dizziness Allergy and Immunology ROS: no allergic symptoms or urticaria Hematological and Lymphatic ROS: no swollen glands, unusual bleeding or bruising Endocrine ROS: no polyuria, polydipsia, weight changes, temperature intolerance Respiratory ROS: no cough, shortness of breath, or wheezing Cardiovascular ROS: no chest pain or dyspnea on exertion Gastrointestinal ROS: denies abdominal pain, bright red blood in stool. Musculoskeletal ROS: no myalgias or arthralgias Neurological ROS: no TIA or stroke symptoms Dermatological ROS: no new or changing skin lesions, rashes or pruritis Physical Exam Physical Exam General appearance: alert, cooperative, no distress, appears stated age Head: Normocephalic, without obvious abnormality, atraumatic Eyes: conjunctivae/corneas clear. PERRL, EOM's intact. Fundi benign Throat: Lips, mucosa, and tongue normal. Teeth and gums normal Neck: supple, symmetrical, trachea midline, no adenopathy, thyroid: not enlarged, symmetric, no tenderness/mass/nodules, no carotid bruit and no JVD Lungs: clear to auscultation bilaterally Heart: regular rate and rhythm, S1, S2 normal, no murmur, click, rub or gallop Abdomen: soft, non-tender. Bowel sounds normal. No masses, no organomegaly Extremities: extremities normal, atraumatic, no cyanosis or edema RUE fistula heel ulcer Pulses: 2+ and symmetric Skin: Skin color, texture, turgor normal. No rashes or lesions Neurologic: Grossly normal Last 24 Hour Vital Signs Date Time Temp Pulse Resp B/P (MAP) Pulse Ox O2 Delivery O2 Flow Rate FiO2 01/08/20 14:42 167/77 01/08/20 14:00 69 12 183/83 (116) 100 01/08/20 13:00 70 13 163/75 (104) 100 01/08/20 12:45 75 14 179/97 (124) 100 01/08/20 12:30 80 20 194/90 (124) 100 01/08/20 12:24 72 177/78 01/08/20 12:24 177/78 01/08/20 12:23 177/78 01/08/20 12:15 76 13 177/78 (111) 97 01/08/20 12:00 98.1 72 17 170/74 (106) 99 01/08/20 12:00 72 01/08/20 12:00 Nasal Cannula 2.0 Nasal Cannula 2.0 01/08/20 11:45 74 13 174/75 (108) 100 01/08/20 11:30 75 12 185/72 (109) 100 01/08/20 11:15 76 18 174/73 (106) 100 01/08/20 11:00 76 8 185/76 (112) 99 01/08/20 10:45 78 19 173/114 (133) 100 01/08/20 10:30 79 14 169/83 (111) 100 01/08/20 10:15 79 14 195/86 (122) 99 01/08/20 10:00 81 19 194/76 (115) 100 01/08/20 09:45 80 16 191/75 (113) 99 01/08/20 09:30 78 18 191/75 (113) 99 01/08/20 09:15 75 202/95 01/08/20 09:15 75 14 179/77 (111) 100 01/08/20 09:14 202/95 01/08/20 09:14 75 202/95 01/08/20 09:00 80 12 202/95 (130) 100 01/08/20 08:45 78 16 193/95 (127) 99 01/08/20 08:39 78 15 193/95 (127) 99 01/08/20 08:30 79 14 204/93 (130) 100 01/08/20 08:15 79 15 191/79 (116) 99 01/08/20 08:00 Nasal Cannula 2.0 Nasal Cannula 2.0 01/08/20 08:00 80 01/08/20 08:00 98.3 78 17 193/89 (123) 100 01/08/20 07:45 79 15 189/87 (121) 100 01/08/20 07:30 78 65 175/90 (118) 99 01/08/20 07:00 76 19 172/67 (102) 100 01/08/20 06:30 75 12 173/66 (101) 99 01/08/20 06:00 70 15 190/86 (120) 98 01/08/20 05:30 68 17 199/80 (119) 96 01/08/20 05:20 207/92 01/08/20 05:00 97.8 67 14 207/92 (130) 96 01/08/20 04:37 203/98 01/08/20 04:00 67 10 189/103 (131) 99 01/08/20 04:00 65 01/08/20 04:00 Nasal Cannula 2.0 01/08/20 03:30 67 14 207/109 (141) 99 01/08/20 03:09 66 13 209/85 (126) 98 01/08/20 03:00 97.4 66 12 209/85 (126) 98 01/08/20 02:58 66 12 211/95 (133) 98 01/08/20 02:50 Nasal Cannula 2.0 01/08/20 02:45 97.3 68 14 186/98 96 Nasal Cannula 2.0 01/08/20 00:54 97.3 64 12 164/84 98 Nasal Cannula 2.0 01/08/20 00:45 97.3 64 12 163/88 98 Nasal Cannula 2.0 01/08/20 00:41 97.3 64 12 161/86 94 Room Air 10.0 01/08/20 00:31 64 11 180/87 94 Room Air 01/08/20 00:23 206/103 01/08/20 00:13 64 14 194/103 94 Room Air 01/08/20 00:04 204/102 01/08/20 00:04 204/102 01/08/20 00:01 63 16 204/102 96 Non-Rebreather 10.0 01/07/20 23:39 228/117 01/07/20 23:27 97.3 01/07/20 23:26 68 20 219/79 94 01/07/20 22:56 74 26 221/81 96 01/07/20 22:56 74 221/81 01/07/20 22:54 97.3 01/07/20 22:30 97.3 74 26 221/81 96 Room Air 01/07/20 22:30 74 26 Room Air 01/07/20 21:56 97.3 79 22 241/111 (154) 96 Room Air Intake and Output 01/07/20 01/08/20 19:00 07:00 Intake Total 431 ml Output Total 0 ml Balance 431 ml Intake Oral 0 ml IV Total 431 ml Output Urine Total 0 ml Laboratory Tests Test 01/07/20 22:09 01/07/20 22:20 01/08/20 04:30 01/08/20 05:17 White Blood Count 5.9 K/UL (4.8-10.8) 5.2 K/UL (4.8-10.8) Red Blood Count 3.72 M/UL (4.20-5.40) L 3.52 M/UL (4.20-5.40) L Hemoglobin 10.9 G/DL (12.0-16.0) L 10.5 G/DL (12.0-16.0) L Hematocrit 34.7 % (37.0-47.0) L 34.5 % (37.0-47.0) L Mean Corpuscular Volume 93 FL (80-99) 98 FL (80-99) Mean Corpuscular Hemoglobin 29.4 PG (27.0-31.0) 29.8 PG (27.0-31.0) Mean Corpuscular Hemoglobin Concent 31.5 G/DL (32.0-36.0) L 30.4 G/DL (32.0-36.0) L Red Cell Distribution Width 15.8 % (11.6-14.8) H 16.0 % (11.6-14.8) H Platelet Count 243 K/UL (150-450) 231 K/UL (150-450) Mean Platelet Volume 8.2 FL (6.5-10.1) 9.1 FL (6.5-10.1) Neutrophils (%) (Auto) 72.9 % (45.0-75.0) 75.2 % (45.0-75.0) H Lymphocytes (%) (Auto) 18.8 % (20.0-45.0) L 16.5 % (20.0-45.0) L Monocytes (%) (Auto) 6.5 % (1.0-10.0) 6.7 % (1.0-10.0) Eosinophils (%) (Auto) 0.5 % (0.0-3.0) 0.0 % (0.0-3.0) Basophils (%) (Auto) 1.5 % (0.0-2.0) 1.6 % (0.0-2.0) Prothrombin Time 11.0 SEC (9.30-11.50) Prothromb Time International Ratio 1.0 (0.9-1.1) Activated Partial Thromboplast Time 30 SEC (23-33) Sodium Level 129 MMOL/L (136-145) L 130 MMOL/L (136-145) L Potassium Level 4.8 MMOL/L (3.5-5.1) 5.7 MMOL/L (3.5-5.1) H Chloride Level 92 MMOL/L (98-107) L 93 MMOL/L (98-107) L Carbon Dioxide Level 29 MMOL/L (21-32) 28 MMOL/L (21-32) Anion Gap 9 mmol/L (5-15) 9 mmol/L (5-15) Blood Urea Nitrogen 33 mg/dL (7-18) H 35 mg/dL (7-18) H Creatinine 5.2 MG/DL (0.55-1.30) H 5.3 MG/DL (0.55-1.30) H Estimat Glomerular Filtration Rate 8.8 mL/min (>60) 8.6 mL/min (>60) Glucose Level 156 MG/DL (74-106) H 133 MG/DL (74-106) H Lactic Acid Level 1.30 mmol/L (0.4-2.0) Calcium Level 8.9 MG/DL (8.5-10.1) 8.2 MG/DL (8.5-10.1) L Magnesium Level 2.6 MG/DL (1.8-2.4) H 2.5 MG/DL (1.8-2.4) H Total Bilirubin 0.6 MG/DL (0.2-1.0) 0.5 MG/DL (0.2-1.0) Aspartate Amino Transf (AST/SGOT) 33 U/L (15-37) 26 U/L (15-37) Alanine Aminotransferase (ALT/SGPT) 42 U/L (12-78) 35 U/L (12-78) Alkaline Phosphatase 489 U/L (46-116) H 437 U/L (46-116) H Troponin I 0.024 ng/mL (0.000-0.056) 0.021 ng/mL (0.000-0.056) Pro-B-Type Natriuretic Peptide > 52779 pg/mL (0-125) H Total Protein 9.0 G/DL (6.4-8.2) H 8.2 G/DL (6.4-8.2) Albumin 3.5 G/DL (3.4-5.0) 3.2 G/DL (3.4-5.0) L Globulin 5.5 g/dL 5.0 g/dL Albumin/Globulin Ratio 0.6 (1.0-2.7) L 0.6 (1.0-2.7) L Lipase 83 U/L (73-393) Human Chorionic Gonadotropin, Quant < 1 mIU/mL (1-6) L POC Whole Blood Glucose 156 MG/DL (74-106) H 112 MG/DL (74-106) H Hemoglobin A1c 6.5 % (4.3-6.0) H Phosphorus Level 7.3 MG/DL (2.5-4.9) H HIV (1&2) Antibody Rapid Negative (NEGATIVE) Test 01/08/20 12:05 Hepatitis B Surface Antigen Pending Hepatitis C Antibody Pending Microbiology Date/Time Source Procedure Growth Status 01/08/20 01:20 Nasopharynx SARS-CoV-2 RdRp Gene Assay - Final Complete Height (Feet): 5 Weight (Pounds): 130 Medications Current Medications Medications (Trade) Dose Ordered Sig/Dereje Route PRN Reason Start Time Stop Time Status Last Admin Dose Admin Acetaminophen (Tylenol) 650 mg Q6H PRN ORAL Mild Pain (Pain Scale 1-3) 01/08/20 04:00 02/07/20 03:59 Acetaminophen/ Hydrocodone Bitart ([place] 5/325) 1 tab Q4H PRN ORAL Moderate Pain (Pain Scale 4-6) 01/08/20 04:00 01/15/20 03:59 Amlodipine Besylate (Norvasc) 10 mg BID ORAL 01/08/20 18:00 02/07/20 17:59 Cefepime HCl 500 mg/Dextrose 55 ml @ 110 mls/hr Q24H IV 01/08/20 23:00 01/15/20 22:59 Clonidine HCl (Catapres TTS-3) 2 patch QWEEK TDERMAL 01/08/20 14:00 04/07/20 13:59 01/08/20 14:42 Clonidine HCl (Catapres Tab) 0.1 mg EVERY 6 HOURS PRN ORAL For High Blood Pressure 01/08/20 04:00 04/07/20 03:59 Dextrose (Dextrose 50%) 25 ml Q30M PRN IV Hypoglycemia 01/08/20 04:00 04/07/20 03:59 Dextrose (Dextrose 50%) 50 ml Q30M PRN IV Hypoglycemia 01/08/20 04:00 04/07/20 03:59 Diphenhydramine HCl (Benadryl) 25 mg Q6H PRN IVP Itching 01/08/20 07:15 02/07/20 07:14 01/08/20 07:29 Gabapentin (Neurontin) 200 mg QHS ORAL 01/08/20 21:00 02/07/20 20:59 Heparin Sodium (Porcine) (Heparin Sod 1000 units/ml 10ml) 500 unit ONCE PRN IV HD USE 01/08/20 12:00 01/08/20 23:59 Hydralazine HCl (Apresoline) 20 mg Q6H PRN IV For High Blood Pressure 01/08/20 12:00 04/07/20 03:59 Hydralazine HCl (Apresoline) 100 mg Q6HR ORAL 01/08/20 12:00 04/07/20 11:59 01/08/20 12:23 Hydrocortisone (Hydrocortisone) 1 applic Q6H PRN TOPIC Itching 01/08/20 09:30 04/07/20 09:29 Hydromorphone HCl (Dilaudid) 0.5 mg Q4H PRN IVP Severe Pain (Pain Scale 7-10) 01/08/20 04:00 01/15/20 03:59 01/08/20 06:36 Insulin Aspart (NovoLOG) BEFORE MEALS AND HS SUBQ 01/08/20 06:30 04/07/20 06:29 Insulin Detemir (Levemir) 10 units Q12HR SUBQ 01/08/20 09:00 04/07/20 08:59 01/08/20 09:32 Lisinopril (PriniviL) 40 mg DAILY ORAL 01/08/20 12:00 02/07/20 11:59 01/08/20 12:24 Metoprolol Tartrate (Lopressor) 25 mg Q12HR ORAL 01/08/20 12:00 04/07/20 11:59 01/08/20 12:24 Ondansetron HCl (Zofran) 4 mg Q6H PRN IVP Nausea & Vomiting 01/08/20 04:00 02/07/20 03:59 01/08/20 06:36 Pantoprazole (Protonix) 40 mg EVERY 12 HOURS ORAL 01/08/20 21:00 02/07/20 11:59 Sodium Chloride 1,000 ml @ 500 mls/hr Q2H PRN IVLG sbp<90 during hd 01/08/20 12:00 01/08/20 23:59 Vancomycin HCl (Vanco pharmacy to dose) 1 ea DAILY PRN MISC Per rx protocol 01/08/20 04:00 02/07/20 03:59 Assessment/Plan Problem List: (1) Heel ulcer Assessment & Plan: identified to have heel ulcer on R upon admission. unstageable ulcer with small necrotic eschar. cover with optifoam and elevate heel left side with TMA ICD Codes: L97.409 - Non-pressure chronic ulcer of unspecified heel and midfoot with unspecified severity SNOMED: 748170895 (2) Hyperglycemia (3) CHF (congestive heart failure) ICD Codes: I50.9 - Heart failure, unspecified SNOMED: 19217660 (4) Long QT interval ICD Codes: R94.31 - Abnormal electrocardiogram [ECG] [EKG] SNOMED: 112145292 (5) Shortness of breath ICD Codes: R06.02 - Shortness of breath SNOMED: 896358422 (6) Pleural effusion ICD Codes: J90 - Pleural effusion, not elsewhere classified SNOMED: 94215239 (7) Hypoxia ICD Codes: R09.02 - Hypoxemia SNOMED: 032058258 (8) Pneumonia ICD Codes: J18.9 - Pneumonia, unspecified organism SNOMED: 634623107 (9) Abdominal pain Assessment & Plan: 49F abd pain with HD. had after HD recently and acute worsening. came in for eval admitted for care and feels better now no n/v/f/c pain resolved but believes will occur after HD CT reviewed may need outpatient CTA or angio okay for diet currently abd exam benign ABDOMEN: Liver: Unremarkable. No mass. Gallbladder and bile ducts: Unremarkable. No calcified stones. No ductal dilation. Pancreas: Unremarkable. No mass. No ductal dilation. Spleen: Unremarkable. No splenomegaly. Adrenals: Unremarkable. No mass. Kidneys and ureters: Atrophy of the left kidney. Severe right hydronephrosis. No obvious obstructing stone or mass. Stomach and bowel: Unremarkable. No obstruction. No mucosal thickening. PELVIS: Appendix: No findings to suggest acute appendicitis. Bladder: Unremarkable. No mass. Reproductive: Unremarkable as visualized. ABDOMEN and PELVIS: Intraperitoneal space: Moderate abdominal and pelvic free fluid. No free air. Bones/joints: No acute fracture. No dislocation. Soft tissues: Unremarkable. Vasculature: Diffuse atherosclerotic vascular disease. No abdominal aortic aneurysm. Lymph nodes: Unremarkable. No enlarged lymph nodes. IMPRESSION: 1. Severe right hydronephrosis. No obvious obstructing stone or mass. 2. Moderate peritoneal and pelvic free fluid. 3. Prominent atherosclerotic vascular disease. ICD Codes: R10.9 - Abdominal pain SNOMED: 15376875 (10) ESRD (end stage renal disease) on dialysis ICD Codes: N18.6 - End stage renal disease; Z99.2 - Dependence on renal dialysis SNOMED: 003829539 (11) Hypertensive emergency ICD Codes: I16.1 - Hypertensive emergency SNOMED: 054217648277424 (12) Acute lower urinary tract infection (13) Dehydration Sergio Lara Jan 08, 2020 15:06
--- NOTE | 2020-01-08 16:00 | NUR ---
NURSE NOTES: Pt repositioned. Afebrile. HD session complete - 2L output noted.
--- NOTE | 2020-01-08 16:30 | NUR ---
NURSE NOTES: Seen by Dr Bass. New order obtained for pain control (1mg Dilaudid IV Q4hr for severe pain 7-10). OK to give additional dose at this time.
--- NOTE | 2020-01-08 17:00 | NUR ---
NURSE NOTES: BG noted 56. Pt given 120 cc of apple juice. Will recheck BG in [address] Bass notified.
--- NOTE | 2020-01-08 17:00 | Consultation ---
DATE OF CONSULTATION: 01/08/2020 REFERRING PHYSICIAN: Kilo Bass M.D. and Vitor uQick M.D. REASON FOR CONSULTATION: End-stage renal disease, [id number] hypertension. HISTORY OF PRESENT ILLNESS: The patient is a 49-year-old lady with diabetes for many years, hypertension, and end-stage renal disease, on dialysis for about a year by a physician, Dr. Stuart, who is not a staff in this hospital. She presents with recurrent epigastric pain, nausea, and vomiting, unable to hold on her medications. She has apparently had a chronic problem with nausea, vomiting, and epigastric pain. She has had a cholecystectomy. No history of hepatitis or HIV. Because of the above, she was sent to the ICU for uncontrolled hypertension, nausea, and vomiting. Imaging shows a right pleural effusion that is large. HABITS: She is a nondrinker, nonsmoker. No use of illicit drugs. HOME MEDICATIONS: We do not have a complete list, and we are trying to get it. She states she takes insulin 5 units with each meal and blood pressure pills. SURGERIES: Cholecystectomy, right arm AV access, amputation of toes on the left foot. SYSTEM REVIEW: HEENT: The patient is blind, sees only dark and light. Hearing is good. ENDOCRINE: Long-standing diabetes for many years with some neuropathy, retinopathy, nephropathy. PULMONARY: No asthma, TB, chronic cough. CARDIAC: History of severe hypertension, difficult to control. No history of [place]. GASTROINTESTINAL: Recurrent nausea, vomiting. See history of present illness. GENITOURINARY: She is aneuric. She has apparently had right nephrostomy in the past and has a large hydronephrosis on the right. It is presumed that the nephrostomy did not improve her renal function based on the fact that she has been on dialysis for quite a long time and is aneuric at this time. NEUROLOGIC: No CVA or seizures. History of peripheral neuropathy. MUSCULOSKELETAL: No chronic joint pain. SKIN: Chronic pruritus. PHYSICAL EXAMINATION: GENERAL: The patient is lying in bed in the ICU, alert, in no acute distress. She is on a nitroglycerin drip. VITAL SIGNS: Blood pressure 173/114, pulse 78, respirations 19. HEAD, EYES, EARS, NOSE, AND THROAT: The patient is blind. Sclerae nonicteric. Oral mucosa moist. NECK: No adenopathy. LUNGS: Diminished breath sounds on the right. No rales or rhonchi. HEART: Rhythm is regular, with a 1 to 2 over 6 systolic ejection murmur. No pericardial friction rubs heard. ABDOMEN: Soft. I am unable to feel liver or spleen. No focal tenderness. EXTREMITIES: No edema, cyanosis, or clubbing. She has amputation of toes on the left foot. She has an AV access in the right upper arm with a good thrill. NEUROLOGIC: She is alert and oriented. Eyes not tested in detail. Smile is symmetric. She moves all extremities. LABORATORY AND DIAGNOSTIC DATA: Review of pertinent labs show sodium 130, potassium 5.7, BUN 35, creatinine 5.3. Albumin is 3.2. Hemoglobin 10.9, white count 5.9. IMPRESSION: 1. End-stage renal disease, dialysis. 2. Hyperkalemia. 3. Large right pleural effusion. 4. Recurrent nausea and vomiting, likely due to gastritis, possible uremic gastritis, possible from under-dialysis, possible other etiologies. 5. Right hydronephrosis, apparently chronic. 6. Moderate protein-calorie malnutrition. 7. Insulin-dependent diabetes. 8. Malignant hypertension. PLAN: Titration of blood pressure medicines. Serial dialysis. Wayne Carcamo M.D. DR: OSCAR JOB#: [id number] CC:
--- NOTE | 2020-01-08 17:15 | NUR ---
NURSE NOTES: BG rechecked - noted 53 - will administer 50 cc of D50% (25g) per protocol and recheck BG in 15 min. Pt is asymptomatic, awake and alert.
[2020-01-08] MEDS: HYDROmorphone 1mg/ml Carpuject IVP PRN ×2 (17:17→22:42)
--- NOTE | 2020-01-08 17:30 | NUR ---
NURSE NOTES: BG now 207. Pt remains asymptomatic.
--- NOTE | 2020-01-08 19:33 | NUR ---
NURSE HAND-OFF REPORT: Latest Vital Signs: Temperature 97.8 , Pulse 66 , B/P 167 /67 , Respiratory Rate 16 , O2 SAT 100 , Nasal Cannula, O2 Flow Rate 2.0 . Vital Sign Comment: stable (SBP now in the 160s). EKG Rhythm: Sinus Rhythm Rhythm change?: N MD Notified?: - MD Response: n/a Latest Dominique Fall Score: 35 Fall Risk: Medium Risk Safety Measures: Call light Within Reach, Bed Alarm Zone 1, Side Rails Side Rails x2, Bed position Low and Locked. Fall Precautions: Yellow Socks Yellow Gown Door Sign Patient Fall Education Report given to TOMI Bone.
[2020-01-08] MEDS: HYDROcodone/Acetamin 5/325 tab ORAL PRN (20:57)
--- NOTE | 2020-01-08 21:08 | NUR ---
NURSE NOTES: blood glucose 138mg/dl. patient refused Levemir. patient with poor appetite did not eat dinner. offered 3x and explained and importance v/s risk and benefits. patient strongly refused. charge nurse aware.
--- NOTE | 2020-01-08 22:42 | NUR ---
NURSE NOTES: patient complained of 10/10 abdominal pain repositioned patient in bed, talk therapy provided not effective. Dilaudid 1mg IVP given. will recheck patient. call light within easy reach.
[2020-01-09] VITALS (33 sets, daily range): BP systolic 103–202; BP diastolic 32–87
[2020-01-09] MEDS: Cefepime HCl 500 MG in D5W 55 ML IV SCH ×2 (00:59→23:25)
[2020-01-09] MEDS: HydrALAZINE 50mg tab ORAL SCH ×4 (01:00→18:19)
--- NOTE | 2020-01-09 01:15 | NUR ---
NURSE NOTES: Called Dr. Bass regarding patient complaining of 10/10 abd pain patient on Dilaudid 1mg Q4hr it help but for shorty period of time, also pt still nauseas. Dr. Bass with new order noted and carried out.
--- NOTE | 2020-01-09 01:20 | NUR ---
NURSE NOTES: [facility] to verify Dilaudid medication.
--- NOTE | 2020-01-09 01:37 | NUR ---
NURSE NOTES: Dilaudid 1.5mg IVP given for 10/10 abdominal; pain. will recheck pt.
--- NOTE | 2020-01-09 02:30 | NUR ---
NURSE NOTES: patient in bed sleeping comfortably.
--- NOTE | 2020-01-09 03:45 | NUR ---
NURSE NOTES: Patient complained of N/V HOB elevated. repositioned in bed not effective. Zofran 6mg IVP given effective.
[2020-01-09 05:26] LABS: BASOPHILS % (AUTO) 0.7 % (0.0-2.0); EOSINOPHILS % (AUTO) 0.3 % (0.0-3.0); HEMOGLOBIN 10.8 G/DL (12.0-16.0); LYMPHOCYTES % (AUTO) 9.8 % (20.0-45.0); MEAN CORPUSCULAR VOLUME 98 FL (80-99); MONOCYTES % (AUTO) 6.3 % (1.0-10.0); NEUTROPHILS % (AUTO) 82.9 % (45.0-75.0); PLATELET COUNT 203 K/UL (150-450); RED BLOOD COUNT 3.69 M/UL (4.20-5.40); RED CELL DISTRIBUTION WIDTH 16.5 % (11.6-14.8); WHITE BLOOD COUNT 5.2 K/UL (4.8-10.8)
[2020-01-09 05:56] LABS: CALCIUM 8.9 MG/DL (8.5-10.1); CREATININE 3.7 MG/DL (0.55-1.30); POTASSIUM 4.1 MMOL/L (3.5-5.1)
[2020-01-09] MEDS: NovoLOG Insulin Flexpen SUBQ SCH ×4 (06:30→21:00)
--- NOTE | 2020-01-09 06:37 | NUR ---
NURSE NOTES: Patient complained of 10/10 abdominal pain, patient screaming BP202/87, talk therapy provided, repositioned in bed not effective. Dilaudid 1.5mg IVP given, will rechecked patient. comfort measure provided. patient refused po hydralazine explained the importance v/s risk and benefits per patient later. charge nurse aware.
--- NOTE | 2020-01-09 07:30 | NUR ---
HAND-OFF: Report given to Kim KRISHNA. patient in bed sleeping comfortably. no n/v. no moaning no facial grimaces.
--- NOTE | 2020-01-09 07:31 | NUR ---
NURSE NOTES: Pt received from TOMI Bone. Pt is awake, AAO x2, able to follow simple commands, bilat pupils equal and round 3 mm with sluggish rxn to light, pt is legally blind (both eyes), pt denies pain at this time. Pt is in SR to athletic monitor. Radial and dorsalis pedis pulses 1+. Afebrile. No edema noted. Pt is on 2L NC with spO2 98-99%. Bilat upper lung lobes CTA and lower lobes diminished. Abdomen is soft and round with active bowel sounds to all quadrants. Pt is anuric (receives regular HD T/TH/Sat). Skin alterations noted. Pt has two 20g LFA IVs saline-locked. SBP noted in the 180s. Will administer PRN hydralazine. Bed in lowest position, alarm on, side rails up x 2, call light within reach. Will continue to monitor.
[2020-01-09] MEDS ORDERED: Vancomycin 1gm/D5W 275ml IVPB SCH ×2 (08:30)
[2020-01-09] MEDS: Pantoprazole Inj IVP SCH ×2 (08:40→20:20)
[2020-01-09] MEDS: Lisinopril 20mg tab ORAL SCH (08:41)
[2020-01-09] MEDS: Levemir Flexpen SUBQ SCH ×2 (08:47→21:00)
--- NOTE | 2020-01-09 09:00 | NUR ---
NURSE NOTES: Pt observed itching intensely over torso, face, and extremities. Will administer PRN benadryl.
[2020-01-09] MEDS: DiphenhydrAMINE 50mg/ml Inj IVP PRN ×2 (09:03→19:45)
--- NOTE | 2020-01-09 09:12 | General Progress Note ---
Subjective ROS Limited/Unobtainable: No Allergies: Coded Allergies: No Known Allergies (Unverified , 11/10/12) Objective Last 24 Hour Vital Signs Date Time Temp Pulse Resp B/P (MAP) Pulse Ox O2 Delivery O2 Flow Rate FiO2 01/09/20 08:41 73 187/76 01/09/20 08:41 187/76 01/09/20 08:41 187/86 01/09/20 08:41 73 187/76 01/09/20 07:30 74 13 178/86 (116) 100 01/09/20 07:07 97.8 01/09/20 07:00 74 8 170/77 (108) 100 01/09/20 06:30 78 23 202/87 (125) 100 01/09/20 06:00 77 22 196/72 (113) 100 01/09/20 06:00 152/67 01/09/20 05:30 78 12 178/68 (104) 100 01/09/20 05:00 75 20 169/82 (111) 100 01/09/20 04:30 75 20 169/82 (111) 100 01/09/20 04:00 97.9 73 12 156/64 (94) 99 01/09/20 04:00 71 01/09/20 04:00 Nasal Cannula 2.0 Nasal Cannula 2.0 Nasal Cannula 2.0 01/09/20 03:55 73 01/09/20 03:30 73 11 152/67 (95) 100 01/09/20 03:00 73 10 137/56 (83) 100 01/09/20 02:30 73 10 134/71 (92) 100 01/09/20 02:07 97.8 01/09/20 02:00 72 13 139/59 (85) 100 01/09/20 01:00 146/62 01/09/20 01:00 71 14 150/62 (91) 98 01/09/20 00:00 69 01/09/20 00:00 98.2 71 14 150/62 (91) 98 01/09/20 00:00 Nasal Cannula 2.0 Nasal Cannula 2.0 Nasal Cannula 2.0 01/08/20 23:45 71 12 164/71 (102) 96 01/08/20 23:12 97.8 01/08/20 23:00 70 14 170/75 (106) 100 01/08/20 22:45 78 13 180/73 (108) 98 01/08/20 22:43 199/78 01/08/20 22:30 73 16 199/78 (118) 98 01/08/20 22:00 69 15 168/65 (99) 98 01/08/20 21:27 97.8 01/08/20 21:00 75 18 166/61 (96) 96 01/08/20 20:57 76 160/64 01/08/20 20:30 68 18 163/62 (95) 97 01/08/20 20:00 65 01/08/20 20:00 98.0 67 18 167/66 (99) 95 01/08/20 20:00 Nasal Cannula 2.0 Nasal Cannula 2.0 Room Air 01/08/20 19:00 66 16 167/67 (100) 100 01/08/20 18:56 99 Nasal Cannula 2.0 28 01/08/20 18:00 66 13 161/54 (89) 100 01/08/20 18:00 66 17 172/65 (100) 100 01/08/20 17:16 156/62 01/08/20 17:16 69 156/62 01/08/20 17:00 70 11 163/64 (97) 98 01/08/20 16:01 97.8 01/08/20 16:00 Nasal Cannula 2.0 Nasal Cannula 2.0 01/08/20 16:00 69 17 178/76 (110) 96 01/08/20 16:00 69 01/08/20 15:02 74 12 168/80 (109) 100 01/08/20 14:42 167/77 01/08/20 14:00 69 12 183/83 (116) 100 01/08/20 13:00 70 13 163/75 (104) 100 01/08/20 12:45 75 14 179/97 (124) 100 01/08/20 12:30 80 20 194/90 (124) 100 01/08/20 12:24 72 177/78 01/08/20 12:24 177/78 01/08/20 12:23 177/78 01/08/20 12:15 76 13 177/78 (111) 97 01/08/20 12:00 98.1 72 17 170/74 (106) 99 01/08/20 12:00 72 01/08/20 12:00 Nasal Cannula 2.0 Nasal Cannula 2.0 01/08/20 11:45 74 13 174/75 (108) 100 01/08/20 11:30 75 12 185/72 (109) 100 01/08/20 11:15 76 18 174/73 (106) 100 01/08/20 11:00 76 8 185/76 (112) 99 01/08/20 10:45 78 19 173/114 (133) 100 01/08/20 10:30 79 14 169/83 (111) 100 01/08/20 10:15 79 14 195/86 (122) 99 01/08/20 10:00 81 19 194/76 (115) 100 01/08/20 09:45 80 16 191/75 (113) 99 01/08/20 09:30 78 18 191/75 (113) 99 01/08/20 09:15 75 202/95 01/08/20 09:15 75 14 179/77 (111) 100 01/08/20 09:14 202/95 01/08/20 09:14 75 202/95 Intake and Output 01/08/20 01/09/20 19:00 07:00 Intake Total 169.875 ml 110 ml Output Total 2000 ml 100 ml Balance -1830.125 ml 10 ml IV Total 169.875 ml 110 ml Output Urine Total 0 ml 0 ml Gastric Drainage Total 100 ml Hemodialysis UF 2000 ml Laboratory Tests 01/08/20 12:05: Hepatitis B Surface Antigen [Pending], Hepatitis C Antibody [Pending] 01/09/20 05:05: White Blood Count 5.2, Red Blood Count 3.69L, Hemoglobin 10.8L, Hematocrit 36.0L , Mean Corpuscular Volume 98, Mean Corpuscular Hemoglobin 29.3, Mean Corpuscular Hemoglobin Concent 30.0L, Red Cell Distribution Width 16.5H, Platelet Count 203, Mean Platelet Volume 8.5, Neutrophils (%) (Auto) 82.9H, Lymphocytes (%) (Auto) 9.8L, Monocytes (%) (Auto) 6.3, Eosinophils (%) (Auto) 0.3, Basophils (%) (Auto) 0.7, Sodium Level 133L, Potassium Level 4.1, Chloride Level 96L, Carbon Dioxide Level 28, Anion Gap 9, Blood Urea Nitrogen 17, Creatinine 3.7H, Estimat Glomerular Filtration Rate 13.1, Glucose Level 104, Calcium Level 8.9, Random Vancomycin Level 4.1 Height (Feet): 5 Weight (Pounds): 130 General Appearance: no apparent distress EENT: normal ENT inspection Neck: supple Cardiovascular: normal rate Respiratory/Chest: decreased breath sounds Abdomen: normal bowel sounds, non tender, soft Extremities: non-tender Assessment/Plan Assessment/Plan: htn ESRD anemia n/v DM large right sided pleural effusion hydronephrosis add reglan tight BS control ppi fu labs HD per nephrology Mark Sy MD Jan 09, 2020 09:12
[2020-01-09] MEDS ORDERED: Metoclopramide 10mg/2ml Inj IVP PRN (09:15)
--- NOTE | 2020-01-09 09:52 | NUR ---
RD ASSESSMENT & RECOMMENDATIONS SEE CARE ACTIVITY FOR COMPLETE ASSESSMENT DAILY ESTIMATED NEEDS: Needs based on ESRD on HD, Wound 50.8kg 30-35 kcals/kg 9326-6139 total kcals 1.25-1.8 g protein/kg 64-91 g total protein Fluid per MD, on HD NUTRITION DIAGNOSIS: Increased kcal and pro needs r/t renal dysfunction and wound healing as evidenced by pt w/ ESRD on HD, w/ unstageable R heel ulcer. CURRENT DIET: renal-> Now NPO PO DIET RECOMMENDATIONS: Renal diet/ texture as tolerated ADDITIONAL RECOMMENDATIONS: 1) Maintain calibrated bed scale wts 2) Now NPO-> w/ diet order, add NEPRO 1 tetra BID Snacks BID in b/w meals 3) Wound care: add YEIMI BID + Nephrovite 1 tab daily Vit C dosing per MD 4) Close monitoring of BG, noted hypoglycemic event Rec D5 while NPO, rate per MD
--- NOTE | 2020-01-09 10:00 | NUR ---
NURSE NOTES: Pt cleaned and repositioned. 12 Lead EKG performed.
[2020-01-09 11:04] LABS: AMMONIA 20 umol/L (11-32); AMYLASE 76 U/L (25-115)
--- NOTE | 2020-01-09 11:17 | NUR ---
NURSE NOTES: Pt seen by Dr Cloud.
--- NOTE | 2020-01-09 12:00 | NUR ---
NURSE NOTES: Pt appears calm. No c/o pain at this time. No nausea or vomiting. Dr Carcamo assessing pt at bedside - labs for today reviewed. Afebrile. No distress noted. Will continue to monitor.
--- NOTE | 2020-01-09 13:47 | NUR ---
NURSE NOTES: Sputum collected and sent down to lab.
--- NOTE | 2020-01-09 15:15 | Consultation ---
DATE OF CONSULTATION: 01/09/2020 INFECTIOUS DISEASES CONSULTATION CONSULTING PHYSICIAN: Aurelia Cloud MD REFERRING PHYSICIAN: Kilo Bass MD REASON FOR CONSULTATION: Possible sepsis. HISTORY OF PRESENTING ILLNESS: This is a 49-year-old lady with history of hypertension, diabetes, renal failure on hemodialysis who comes in with hypertensive crisis and was found to have a pneumonia and right-sided pleural effusion. An Infectious Diseases consultation has been obtained for antibiotics. PAST MEDICAL HISTORY: 1. Diabetes. 2. Hypertension. 3. Renal failure, on dialysis. 4. Right-sided hydronephrosis, status post nephrostomy, which has been removed. She also has a biliary stent. 5. Status post right foot partial amputation. SOCIAL HISTORY: Unknown. FAMILY HISTORY: Unknown. REVIEW OF SYSTEMS: Unable to obtain currently. MEDICATIONS: As an inpatient, she is on Reglan, Protonix, Zofran, Dilaudid, cefepime, Neurontin. She has received IV vancomycin, amlodipine, clonidine, hydralazine, metoprolol, lisinopril, hydrocortisone topically, insulin Benadryl, [place], Tylenol, clonidine. ALLERGIES: No known drug allergies. PHYSICAL EXAMINATION: VITAL SIGNS: Temperature of 97.4, T-max of 98.2, pulse of 62, respiratory rate of 14, blood pressure of 151/61, O2 saturation of 98% on 2 liters of oxygen. HEENT: Pupils are equally reactive to light and accommodation. Mouth appears clean without thrush. NECK: Supple. No adenopathy. No JVD. CARDIOVASCULAR: Regular rate and rhythm. No murmurs. LUNGS: Clear to auscultation bilaterally. No crackles. No wheezes. ABDOMEN: Soft, nontender. No organomegaly. EXTREMITIES: No cyanosis, no clubbing, no edema. LABORATORY AND DIAGNOSTIC DATA: White count 5.2, hemoglobin 10.8, hematocrit 36, MCV 98, platelet count of 203. Sodium 133, potassium 4.1, chloride 96, bicarb 28, BUN 17, creatinine 3.7, glucose 104, calcium of 8.9. Ammonia level of 20. Total bilirubin 0.5, AST 26, ALT 35, alkaline phosphatase 437. Beta natriuretic peptide more than 35,000. Total protein 8.2, albumin 3.2. Hepatitis B surface antigen is pending. Hepatitis C antibody is pending. HIV test is negative. COVID-19 test is negative. Nasal swab was negative for MRSA. Chest x-ray is showing right airspace disease concerning for pneumonia. CT chest, abdomen, and pelvis showing severe right-sided hydronephrosis. No obstructing stone or mass. Moderate peritoneal pelvic free fluid. Prominent atherosclerotic cardiovascular disease. Ultrasound of legs showed no evidence of DVT. ASSESSMENT: This is a 49-year-old lady with history of diabetes, hypertension, renal failure on dialysis with history of hydronephrosis and nephrostomy who comes in and is found to have. 1. Pneumonia. 2. Diabetes. 3. Hypertension. 4. Renal failure on dialysis. PLAN: 1. Continue IV vancomycin and cefepime for now. 2. We will order sputum for Gram stain and culture. 3. We will follow up cultures and adjust antibiotics accordingly. I would like to thank, Dr. Bass, for this consultation. Aurelia Cloud M.D. DR: RADHA JOB#: [id number] CC: Kilo Bass MD
--- NOTE | 2020-01-09 15:26 | NUR ---
NURSE NOTES: Pt seen by Dr Bass. Plan of care discussed.
--- NOTE | 2020-01-09 16:00 | NUR ---
NURSE NOTES: Pt repositioned. Afebrile.
--- NOTE | 2020-01-09 16:00 | Cardiology Report ---
APPROVED REPORT EKG Measurement Heart [id number] CT [id number] <Conclusion> Normal sinus rhythm Left posterior fascicular block Prolonged QT Abnormal ECG
--- NOTE | 2020-01-09 16:53 | Pulmonolgy Critical Care Note ---
Critical Care - Asmt/Plan Assessment/Plan: Critical Care Progress Note HPI Patient is a 49-year-old woman with history of End stage renal disease on HD, Right Hydronephosis, Hypertension, Diabetes.She receives dialysis on Friday.Admitted with Hypertensive crisis and noted to have Pneumonia and large right Pleural effusion. Complained of epigastric abdominal pain which started after HD, which is a recurring problem when she receives dialysis. She last received dialysis on 01/07/2020. The abdominal pain is sharp in nature, located epigastric region, denies fevers, chills, chest pain, palpitations, shortness of breath, diarrhea. Has nausea, no vomiting. Patient does have a history of percutaneous nephrostomy tube which has since been removed, as well as biliary stent. Covid negative on admission Improving abdominal pain, BP improved,off Nitro gtt GI following Allergies: No Known Allergies Past Medical History: End stage renal disease on HD, Right Hydronephosis, Hypertension, Congestive heart failure, Diabetes. Past Surgical History: Right arm shunt,percutaneous nephrostomy tube which has since been removed, as well as biliary stent. Status post right foot partial amputation Physical Exam Vital Signs noted General Appearance: alert, non-toxic, other - in mild discomfort Head: normocephalic, atraumatic Eyes: bilateral eye normal inspection, bilateral eye PERRL ENT: hearing grossly normal, normal pharynx, no swelling, normal voice,moist mm Neck: no LN Respiratory: chest non-tender, lungs clear, normal breath sounds, reduced right basal BS Cardiovascular: regular rate, rhythm, no edema, HS1,HS2, normal Gastrointestinal: normal bowel sounds, soft, non-distended, no guarding, no harrison ound, old surgical scars. No distention or rebound or guarding. Pain in the midline epigastric region on palpation Genitourinary: normal inspection, no CVA tenderness Musculoskeletal: back normal, normal range of motion, gait/station normal, non- tender, other - Status post right foot partial amputation Neurologic: alert, motor strength/tone normal, oriented x3, sensory intact, responsive, speech normal,no seizures Medical Decision Making Impression: Hypertensive urgency ESRD (end stage renal disease) on dialysis, right hydronephrosis - had previous nephrostomy Pneumonia Right Pleural effusion Congestive heart failure Hypoxia Abdominal pain Hyperglycemia Long QT interval Diabetes Pneumonia Plan: Antihypertensive IV Antibiotics O2 PRN Renal consult HD as required ID consult Cardiology consult Thoracentesis in AM ISS Analgesia PPX Monitor labs ICU care EKG: NSR, no ischemia, normal axis. Prolonged QTc 523 ms. Rate 61 bpm.. No ectopy Chest x-ray: Right lower lobe airspace disease concerning for consolidation. No bony abnormalities. No free air under the diaphragm. No pneumothorax. CT abdomen pelvis: 1. Severe right hydronephrosis. No obvious obstructing stone or mass. 2. Moderate peritoneal and pelvic free fluid. 3. Prominent atherosclerotic vascular disease. CT chest: Large right pleural effusion with associated compressive atelectasis. LE dupplex: OK Laboratory Tests noted Critical Care - Objective Last 24 Hour Vital Signs Date Time Temp Pulse Resp B/P (MAP) Pulse Ox O2 Delivery O2 Flow Rate FiO2 01/09/20 16:00 99.2 63 11 135/67 (89) 100 01/09/20 16:00 64 01/09/20 16:00 Nasal Cannula 2.0 Nasal Cannula 2.0 Nasal Cannula 2.0 01/09/20 15:00 64 8 142/60 (87) 100 01/09/20 14:00 61 11 133/67 (89) 99 01/09/20 13:00 61 16 127/53 (77) 98 01/09/20 12:00 98.1 63 14 151/61 (91) 98 01/09/20 12:00 62 01/09/20 12:00 Nasal Cannula 2.0 Nasal Cannula 2.0 Nasal Cannula 2.0 01/09/20 11:52 150/61 01/09/20 11:00 69 12 167/59 (95) 100 01/09/20 10:00 76 21 149/66 (93) 100 01/09/20 09:30 76 21 149/66 (93) 100 01/09/20 09:00 74 11 172/73 (106) 99 01/09/20 08:41 73 187/76 01/09/20 08:41 187/76 01/09/20 08:41 187/86 01/09/20 08:41 73 187/76 01/09/20 08:00 97.4 73 12 179/81 (113) 98 01/09/20 08:00 Nasal Cannula 2.0 Nasal Cannula 2.0 Nasal Cannula 2.0 01/09/20 08:00 74 01/09/20 07:30 99 Nasal Cannula 2.0 28 01/09/20 07:30 74 13 178/86 (116) 100 01/09/20 07:07 97.8 01/09/20 07:00 74 8 170/77 (108) 100 01/09/20 06:30 78 23 202/87 (125) 100 01/09/20 06:00 77 22 196/72 (113) 100 01/09/20 06:00 152/67 01/09/20 05:30 78 12 178/68 (104) 100 01/09/20 05:00 75 20 169/82 (111) 100 01/09/20 04:30 75 20 169/82 (111) 100 01/09/20 04:00 97.9 73 12 156/64 (94) 99 01/09/20 04:00 71 01/09/20 04:00 Nasal Cannula 2.0 Nasal Cannula 2.0 Nasal Cannula 2.0 01/09/20 03:55 73 01/09/20 03:30 73 11 152/67 (95) 100 01/09/20 03:00 73 10 137/56 (83) 100 01/09/20 02:30 73 10 134/71 (92) 100 01/09/20 02:07 97.8 01/09/20 02:00 72 13 139/59 (85) 100 01/09/20 01:00 146/62 01/09/20 01:00 71 14 150/62 (91) 98 01/09/20 00:00 69 01/09/20 00:00 98.2 71 14 150/62 (91) 98 01/09/20 00:00 Nasal Cannula 2.0 Nasal Cannula 2.0 Nasal Cannula 2.0 01/08/20 23:45 71 12 164/71 (102) 96 01/08/20 23:12 97.8 01/08/20 23:00 70 14 170/75 (106) 100 01/08/20 22:45 78 13 180/73 (108) 98 01/08/20 22:43 199/78 01/08/20 22:30 73 16 199/78 (118) 98 01/08/20 22:00 69 15 168/65 (99) 98 01/08/20 21:27 97.8 01/08/20 21:00 75 18 166/61 (96) 96 01/08/20 20:57 76 160/64 01/08/20 20:30 68 18 163/62 (95) 97 01/08/20 20:00 65 01/08/20 20:00 98.0 67 18 167/66 (99) 95 01/08/20 20:00 Nasal Cannula 2.0 Nasal Cannula 2.0 Room Air 01/08/20 19:00 66 16 167/67 (100) 100 01/08/20 18:56 99 Nasal Cannula 2.0 28 01/08/20 18:00 66 13 161/54 (89) 100 01/08/20 18:00 66 17 172/65 (100) 100 01/08/20 17:16 156/62 01/08/20 17:16 69 156/62 01/08/20 17:00 70 11 163/64 (97) 98 Micro: Microbiology Date/Time Source Procedure Growth Status 01/08/20 01:20 Nasopharynx SARS-CoV-2 RdRp Gene Assay - Final Complete 01/08/20 00:18 Nasal Nares MRSA Culture - Final NO METHICILLIN RESISTANT STAPH AUREUS... Complete Accucheck: 102 Critical Care - Subjective ROS Limited/Unobtainable: No Condition: improving FI02: 28 I&O: Intake and Output 01/08/20 01/09/20 19:00 07:00 Intake Total 169.875 ml 110 ml Output Total 2000 ml 100 ml Balance -1830.125 ml 10 ml IV Total 169.875 ml 110 ml Output Urine Total 0 ml 0 ml Gastric Drainage Total 100 ml Hemodialysis UF 2000 ml Kilo Bass MD Jan 09, 2020 16:53
--- NOTE | 2020-01-09 17:16 | NUR ---
CASE MANAGEMENT:INITIAL REVIEW 49 YR OLD FEMALE BIBA FROM HOME CC; ABDOMINAL PAIN SI;HYPERTENSIVE EMERGENCY. CHF. PLEURAL EFFUSION. PNA. HYPOXIA. 97.3 26 241/111 94% ON RA H/H 10.9/24.7 NA 129 CL 92 BUN 33 CR 5.2 BG 156 ALP 489 RAPID COVID ~ NEGATIVE CXR ~ Right airspace disease concerning for pneumonia in the appropriate clinical setting. CHEST/ABD/PELVIS CT ~ 1. Severe right hydronephrosis. No obvious obstructing stone or mass. 2. Moderate peritoneal and pelvic free fluid. 3. Prominent atherosclerotic vascular disease. IS;ZOFRAN IV MORPHINE IV NICARDIPINE IV BENTYL PO MYLANTA PO LABETALOL IV DILAUDID IV ATIVAN IV VANCOMYCIN IV CEFEPIME IV HYDRALAZINE IV X2 NITROGLYCERIN TOP ADMITTED TO ICU ICU STATUS DCP;FROM HOME
--- NOTE | 2020-01-09 17:20 | Surgery Progress Note ---
Surgery Progress Note Subjective Additional Comments ill appearing in and out of congnitive no n/v labs noted exam stable Objective Last 24 Hour Vital Signs Date Time Temp Pulse Resp B/P (MAP) Pulse Ox O2 Delivery O2 Flow Rate FiO2 01/09/20 16:00 99.2 63 11 135/67 (89) 100 01/09/20 16:00 64 01/09/20 16:00 Nasal Cannula 2.0 Nasal Cannula 2.0 Nasal Cannula 2.0 01/09/20 15:00 64 8 142/60 (87) 100 01/09/20 14:00 61 11 133/67 (89) 99 01/09/20 13:00 61 16 127/53 (77) 98 01/09/20 12:00 98.1 63 14 151/61 (91) 98 01/09/20 12:00 62 01/09/20 12:00 Nasal Cannula 2.0 Nasal Cannula 2.0 Nasal Cannula 2.0 01/09/20 11:52 150/61 01/09/20 11:00 69 12 167/59 (95) 100 01/09/20 10:00 76 21 149/66 (93) 100 01/09/20 09:30 76 21 149/66 (93) 100 01/09/20 09:00 74 11 172/73 (106) 99 01/09/20 08:41 73 187/76 01/09/20 08:41 187/76 01/09/20 08:41 187/86 01/09/20 08:41 73 187/76 01/09/20 08:00 97.4 73 12 179/81 (113) 98 01/09/20 08:00 Nasal Cannula 2.0 Nasal Cannula 2.0 Nasal Cannula 2.0 01/09/20 08:00 74 01/09/20 07:30 99 Nasal Cannula 2.0 28 01/09/20 07:30 74 13 178/86 (116) 100 01/09/20 07:07 97.8 01/09/20 07:00 74 8 170/77 (108) 100 01/09/20 06:30 78 23 202/87 (125) 100 01/09/20 06:00 77 22 196/72 (113) 100 01/09/20 06:00 152/67 01/09/20 05:30 78 12 178/68 (104) 100 01/09/20 05:00 75 20 169/82 (111) 100 01/09/20 04:30 75 20 169/82 (111) 100 01/09/20 04:00 97.9 73 12 156/64 (94) 99 01/09/20 04:00 71 01/09/20 04:00 Nasal Cannula 2.0 Nasal Cannula 2.0 Nasal Cannula 2.0 01/09/20 03:55 73 01/09/20 03:30 73 11 152/67 (95) 100 01/09/20 03:00 73 10 137/56 (83) 100 01/09/20 02:30 73 10 134/71 (92) 100 01/09/20 02:07 97.8 01/09/20 02:00 72 13 139/59 (85) 100 01/09/20 01:00 146/62 01/09/20 01:00 71 14 150/62 (91) 98 01/09/20 00:00 69 01/09/20 00:00 98.2 71 14 150/62 (91) 98 01/09/20 00:00 Nasal Cannula 2.0 Nasal Cannula 2.0 Nasal Cannula 2.0 01/08/20 23:45 71 12 164/71 (102) 96 01/08/20 23:12 97.8 01/08/20 23:00 70 14 170/75 (106) 100 01/08/20 22:45 78 13 180/73 (108) 98 01/08/20 22:43 199/78 01/08/20 22:30 73 16 199/78 (118) 98 01/08/20 22:00 69 15 168/65 (99) 98 01/08/20 21:27 97.8 01/08/20 21:00 75 18 166/61 (96) 96 01/08/20 20:57 76 160/64 01/08/20 20:30 68 18 163/62 (95) 97 01/08/20 20:00 65 01/08/20 20:00 98.0 67 18 167/66 (99) 95 01/08/20 20:00 Nasal Cannula 2.0 Nasal Cannula 2.0 Room Air 01/08/20 19:00 66 16 167/67 (100) 100 01/08/20 18:56 99 Nasal Cannula 2.0 28 01/08/20 18:00 66 13 161/54 (89) 100 01/08/20 18:00 66 17 172/65 (100) 100 I&O Intake and Output 01/08/20 01/09/20 19:00 07:00 Intake Total 169.875 ml 110 ml Output Total 2000 ml 100 ml Balance -1830.125 ml 10 ml IV Total 169.875 ml 110 ml Output Urine Total 0 ml 0 ml Gastric Drainage Total 100 ml Hemodialysis UF 2000 ml Dressing: dry Cardiovascular: RSR Respiratory: decreased breath sounds Abdomen: non-tender, present bowel sounds, non-distended Extremities: edema, no tenderness, no cyanosis Laboratory Tests Test 01/09/20 05:05 01/09/20 10:38 White Blood Count 5.2 K/UL (4.8-10.8) Red Blood Count 3.69 M/UL (4.20-5.40) L Hemoglobin 10.8 G/DL (12.0-16.0) L Hematocrit 36.0 % (37.0-47.0) L Mean Corpuscular Volume 98 FL (80-99) Mean Corpuscular Hemoglobin 29.3 PG (27.0-31.0) Mean Corpuscular Hemoglobin Concent 30.0 G/DL (32.0-36.0) L Red Cell Distribution Width 16.5 % (11.6-14.8) H Platelet Count 203 K/UL (150-450) Mean Platelet Volume 8.5 FL (6.5-10.1) Neutrophils (%) (Auto) 82.9 % (45.0-75.0) H Lymphocytes (%) (Auto) 9.8 % (20.0-45.0) L Monocytes (%) (Auto) 6.3 % (1.0-10.0) Eosinophils (%) (Auto) 0.3 % (0.0-3.0) Basophils (%) (Auto) 0.7 % (0.0-2.0) Sodium Level 133 MMOL/L (136-145) L Potassium Level 4.1 MMOL/L (3.5-5.1) Chloride Level 96 MMOL/L (98-107) L Carbon Dioxide Level 28 MMOL/L (21-32) Anion Gap 9 mmol/L (5-15) Blood Urea Nitrogen 17 mg/dL (7-18) Creatinine 3.7 MG/DL (0.55-1.30) H Estimat Glomerular Filtration Rate 13.1 mL/min (>60) Glucose Level 104 MG/DL (74-106) Calcium Level 8.9 MG/DL (8.5-10.1) Random Vancomycin Level 4.1 ug/mL Uric Acid 4.4 MG/DL (2.6-7.2) Ammonia 20 umol/L (11-32) Amylase Level 76 U/L (25-115) Lipase 56 U/L (73-393) L Plan Problems: (1) Heel ulcer Assessment & Plan: identified to have heel ulcer on R upon admission. unstageable ulcer with small necrotic eschar. cover with optifoam and elevate heel left side with TMA (2) Hyperglycemia (3) CHF (congestive heart failure) (4) Long QT interval (5) Shortness of breath (6) Pleural effusion (7) Hypoxia (8) Pneumonia (9) Abdominal pain Assessment & Plan: 49F abd pain with HD. had after HD recently and acute worsening. came in for eval admitted for care and feels better now no n/v/f/c pain resolved but believes will occur after HD CT reviewed may need outpatient CTA or angio okay for diet currently abd exam benign ABDOMEN: Liver: Unremarkable. No mass. Gallbladder and bile ducts: Unremarkable. No calcified stones. No ductal dilation. Pancreas: Unremarkable. No mass. No ductal dilation. Spleen: Unremarkable. No splenomegaly. Adrenals: Unremarkable. No mass. Kidneys and ureters: Atrophy of the left kidney. Severe right hydronephrosis. No obvious obstructing stone or mass. Stomach and bowel: Unremarkable. No obstruction. No mucosal thickening. PELVIS: Appendix: No findings to suggest acute appendicitis. Bladder: Unremarkable. No mass. Reproductive: Unremarkable as visualized. ABDOMEN and PELVIS: Intraperitoneal space: Moderate abdominal and pelvic free fluid. No free air. Bones/joints: No acute fracture. No dislocation. Soft tissues: Unremarkable. Vasculature: Diffuse atherosclerotic vascular disease. No abdominal aortic aneurysm. Lymph nodes: Unremarkable. No enlarged lymph nodes. IMPRESSION: 1. Severe right hydronephrosis. No obvious obstructing stone or mass. 2. Moderate peritoneal and pelvic free fluid. 3. Prominent atherosclerotic vascular disease. (10) ESRD (end stage renal disease) on dialysis (11) Hypertensive emergency (12) Acute lower urinary tract infection (13) Dehydration Sergio Lara Jan 09, 2020 17:20
--- NOTE | 2020-01-09 18:00 | NUR ---
NURSE NOTES: Pt repositioned and cleaned. No acute distress noted. Denies pain. No apparent nausea or vomiting at this time.
--- NOTE | 2020-01-09 18:40 | Nephrology Progress Note ---
Assessment/Plan Problem List: (1) ESRD (end stage renal disease) on dialysis (2) Abdominal pain (3) CHF (congestive heart failure) (4) Gastritis (5) Malignant hypertension (arteriolar nephrosclerosis) Plan avoid tramadol in eskd, serial HD, titrate bp meds, GI eval ongoing Subjective Constitutional: Reports: weakness HEENT: Reports: blurred vision Genitourinary: Reports: no symptoms Neurologic/Psychiatric: Reports: no symptoms Objective Objective Last 24 Hour Vital Signs Date Time Temp Pulse Resp B/P (MAP) Pulse Ox O2 Delivery O2 Flow Rate FiO2 01/09/20 18:19 142/55 01/09/20 18:19 62 142/55 01/09/20 16:00 99.2 63 11 135/67 (89) 100 01/09/20 16:00 64 01/09/20 16:00 Nasal Cannula 2.0 Nasal Cannula 2.0 Nasal Cannula 2.0 01/09/20 15:00 64 8 142/60 (87) 100 01/09/20 14:00 61 11 133/67 (89) 99 01/09/20 13:00 61 16 127/53 (77) 98 01/09/20 12:00 98.1 63 14 151/61 (91) 98 01/09/20 12:00 62 01/09/20 12:00 Nasal Cannula 2.0 Nasal Cannula 2.0 Nasal Cannula 2.0 01/09/20 11:52 150/61 01/09/20 11:00 69 12 167/59 (95) 100 01/09/20 10:00 76 21 149/66 (93) 100 01/09/20 09:30 76 21 149/66 (93) 100 01/09/20 09:00 74 11 172/73 (106) 99 01/09/20 08:41 73 187/76 01/09/20 08:41 187/76 01/09/20 08:41 187/86 01/09/20 08:41 73 187/76 01/09/20 08:00 97.4 73 12 179/81 (113) 98 01/09/20 08:00 Nasal Cannula 2.0 Nasal Cannula 2.0 Nasal Cannula 2.0 01/09/20 08:00 74 01/09/20 07:30 99 Nasal Cannula 2.0 28 01/09/20 07:30 74 13 178/86 (116) 100 01/09/20 07:07 97.8 01/09/20 07:00 74 8 170/77 (108) 100 01/09/20 06:30 78 23 202/87 (125) 100 01/09/20 06:00 77 22 196/72 (113) 100 01/09/20 06:00 152/67 01/09/20 05:30 78 12 178/68 (104) 100 01/09/20 05:00 75 20 169/82 (111) 100 01/09/20 04:30 75 20 169/82 (111) 100 01/09/20 04:00 97.9 73 12 156/64 (94) 99 01/09/20 04:00 71 01/09/20 04:00 Nasal Cannula 2.0 Nasal Cannula 2.0 Nasal Cannula 2.0 01/09/20 03:55 73 01/09/20 03:30 73 11 152/67 (95) 100 01/09/20 03:00 73 10 137/56 (83) 100 01/09/20 02:30 73 10 134/71 (92) 100 01/09/20 02:07 97.8 01/09/20 02:00 72 13 139/59 (85) 100 01/09/20 01:00 146/62 01/09/20 01:00 71 14 150/62 (91) 98 01/09/20 00:00 69 01/09/20 00:00 98.2 71 14 150/62 (91) 98 01/09/20 00:00 Nasal Cannula 2.0 Nasal Cannula 2.0 Nasal Cannula 2.0 01/08/20 23:45 71 12 164/71 (102) 96 01/08/20 23:12 97.8 01/08/20 23:00 70 14 170/75 (106) 100 01/08/20 22:45 78 13 180/73 (108) 98 01/08/20 22:43 199/78 01/08/20 22:30 73 16 199/78 (118) 98 01/08/20 22:00 69 15 168/65 (99) 98 01/08/20 21:27 97.8 01/08/20 21:00 75 18 166/61 (96) 96 01/08/20 20:57 76 160/64 01/08/20 20:30 68 18 163/62 (95) 97 01/08/20 20:00 65 01/08/20 20:00 98.0 67 18 167/66 (99) 95 01/08/20 20:00 Nasal Cannula 2.0 Nasal Cannula 2.0 Room Air 01/08/20 19:00 66 16 167/67 (100) 100 01/08/20 18:56 99 Nasal Cannula 2.0 28 Intake and Output 01/08/20 01/09/20 19:00 07:00 Intake Total 169.875 ml 110 ml Output Total 2000 ml 100 ml Balance -1830.125 ml 10 ml IV Total 169.875 ml 110 ml Output Urine Total 0 ml 0 ml Gastric Drainage Total 100 ml Hemodialysis UF 2000 ml Laboratory Tests 01/09/20 05:05: White Blood Count 5.2, Red Blood Count 3.69L, Hemoglobin 10.8L, Hematocrit 36.0L , Mean Corpuscular Volume 98, Mean Corpuscular Hemoglobin 29.3, Mean Corpuscular Hemoglobin Concent 30.0L, Red Cell Distribution Width 16.5H, Platelet Count 203, Mean Platelet Volume 8.5, Neutrophils (%) (Auto) 82.9H, Lymphocytes (%) (Auto) 9.8L, Monocytes (%) (Auto) 6.3, Eosinophils (%) (Auto) 0.3, Basophils (%) (Auto) 0.7, Sodium Level 133L, Potassium Level 4.1, Chloride Level 96L, Carbon Dioxide Level 28, Anion Gap 9, Blood Urea Nitrogen 17, Creatinine 3.7H, Estimat Glomerular Filtration Rate 13.1, Glucose Level 104, Calcium Level 8.9, Random Vancomycin Level 4.1 01/09/20 10:38: Uric Acid 4.4, Ammonia 20, Amylase Level 76, Lipase 56L Height (Feet): 5 Weight (Pounds): 130 General Appearance: alert EENT: other - poor vision Neck: normal alignment Cardiovascular: normal rate, regular rhythm Respiratory/Chest: lungs clear Abdomen: soft, no organomegaly Extremities: no edema Neurologic: product/device technologist II-XII grossly normal Wayne Carcamo MD Jan 09, 2020 18:40
--- NOTE | 2020-01-09 18:53 | NUR ---
NURSE NOTES: Spoke with Cheryl from [facility] nephrology - HD scheduled for tomorrow.
--- NOTE | 2020-01-09 19:13 | NUR ---
NURSE HAND-OFF REPORT: Latest Vital Signs: Temperature 99.2 , Pulse 64 , B/P 154 /64 , Respiratory Rate 10 , O2 SAT 99 , Nasal Cannula, O2 Flow Rate 2.0 . Vital Sign Comment: desaturates without nasal cannula (thoracentesis planned for tomorrow) EKG Rhythm: Sinus Rhythm Rhythm change?: N MD Notified?: Dr Argueta to see pt tonight (per Dr Bass) Response: n/a Latest Dominique Fall Score: 35 Fall Risk: Medium Risk Safety Measures: Call light Within Reach, Bed Alarm Zone 1, Side Rails Side Rails x2, Bed position Low and Locked. Fall Precautions: Yellow Socks Yellow Gown Door Sign Patient Fall Education Report given to TOMI Bone.
--- NOTE | 2020-01-09 19:15 | NUR ---
NURSE NOTES: Received report from Kim KRISHNA. patient in bed awake,alert oriented to name with confusion and disorientation, reality orientation and reoriented x3. Reminded patient that shes in ICU for HTN emergency. On 2L oxygen via N/C satting 98-100%. HOB elevated. Denies any pain or discomfort, no n/v. abdominal soft and non distended with bowel sounds. Right upper arm AV shunt intact with + bruit and thrill no bleeding. with order HD in am.HR SR on survey statistician HR 72. NPO except medication. anuric. no bm. Left F/A IV line #1, #2 intact no s/s of infiltration. Bed alarm on. bed locked and in low position. Instructed patient to use call light for assistance. will continue to monitor patient.
--- NOTE | 2020-01-09 19:45 | NUR ---
NURSE NOTES: patient complaining of N/V and itching on back area. HOB elevated. applied lotion not effective. Benadryl and Reglan given will rechecked patient.
[2020-01-09] MEDS: HYDROcodone/Acetamin 5/325 tab ORAL PRN (21:13)
--- NOTE | 2020-01-09 21:13 | NUR ---
NURSE NOTES: Patient complained of 6/10 abdominal pain reposition provided and talk therapy provided not effective. [place] 1 tab po given with apple sauce sonny well will rechecked patient. Denies itching. no n/v call light within easy reach.
--- NOTE | 2020-01-09 23:00 | NUR ---
NURSE NOTES: Repositioned patient in bed. patient screaming for nurse wanted to hold hands. encouraged patient to verbalized needs, fears and feelings to staff. per patient she just want to hold hands. stayed with patient talk therapy provided. will continue plan of care.
[2020-01-10] VITALS (21 sets, daily range): BP systolic 101–165; BP diastolic 40–85
[2020-01-10] MEDS: HydrALAZINE 50mg tab ORAL SCH ×6 (00:57→23:59)
--- NOTE | 2020-01-10 01:00 | NUR ---
NURSE NOTES: Patient in bed sleeping comfortably. no n/v. no complain of pain or discomfort. call light within easy raech. bed alarm on. bed locked and in low position. will continue plan of care.
--- NOTE | 2020-01-10 03:00 | NUR ---
NURSE NOTES: Currently receiving HD. patient in bed awake,alert to name. no s/s of acute distress noted. frequent visual checks continued. will continue plan of care.
--- NOTE | 2020-01-10 05:00 | NUR ---
NURSE NOTES: Bed bath given tolerated well.
[2020-01-10 05:53] LABS: EOSINOPHILS % (AUTO) 0.4 % (0.0-3.0); HEMATOCRIT 32.2 % (37.0-47.0); HEMOGLOBIN 10.1 G/DL (12.0-16.0); LYMPHOCYTES % (AUTO) 16.5 % (20.0-45.0); MEAN CORPUSCULAR VOLUME 98 FL (80-99); MONOCYTES % (AUTO) 9.6 % (1.0-10.0); NEUTROPHILS % (AUTO) 72.4 % (45.0-75.0); PLATELET COUNT 206 K/UL (150-450); RED CELL DISTRIBUTION WIDTH 16.4 % (11.6-14.8); WHITE BLOOD COUNT 5.1 K/UL (4.8-10.8)
--- NOTE | 2020-01-10 06:00 | NUR ---
NURSE NOTES: Patient in bed awake,alert to name with episode of banging the call light on the side rails. Instructed patient to use call light and how to use call light with returned demonstration. encouraged patient to verbalized needs, fears and feelings to staff. per patient she wants ice chips. 1 teaspoon of ice chips given.tolerated well no. coughing. no n/v. patient NPO. HOB elevated. TV on. patient is blind. all needs attended promptly. Blood glucose 95mg/dl. will continue plan of care.
[2020-01-10 06:19] LABS: CALCIUM 8.2 MG/DL (8.5-10.1); CREATININE 5.3 MG/DL (0.55-1.30); POTASSIUM 4.6 MMOL/L (3.5-5.1)
[2020-01-10] MEDS: DiphenhydrAMINE 50mg/ml Inj IVP PRN (06:20)
[2020-01-10] MEDS: NovoLOG Insulin Flexpen SUBQ SCH ×4 (06:30→21:00)
--- NOTE | 2020-01-10 07:10 | NUR ---
HAND-OFF: Report given to Hanny KRISHNA.
--- NOTE | 2020-01-10 07:30 | NUR ---
NURSE NOTES: Received report from TOMI Bone. The patient is resting on the bed without acute distress or shortness of breath but anxious, restless, and uncooperative in medical care. The patient is alert and oriented, able to make needs known via verbal communication, and mainly Danish speaking. 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 The patient is on 2L NC and oxygen saturation is 100%. No s/s of shortness of breath or dyspnea noted. The patient is NPO per order except meds. The patient is anuric. The patient's skin issue noted and dressing intact. The patient is on low air loss matress for pressure ulcer. The patient has ANABELLA AV shunt for HD access. The patient has L FA 20G PIVs x2 SL, which are intact and patent. Per TOMI Bone, the patient had HD per Dr. Carcamo's order on 01/09 with 2.5L out. The patient is scheduled for thoracentesis per Dr. Bass's order. The patient's bed in the lowest position, call light in reach, and fall and aspiration precaution reinforced. IV sites intact and patent. ANABELLA AV shunt thrill and bruit presents. Will follow up the lab and order. Will closely monitor the patient. Will continue plan of care. Addendum: 01/10/20 at 2120 by Kalyan Stark RN Bilateral eyes blindness noted and reassurance given. More detail instruction given and tactile stimuli provided to guide the patient.
[2020-01-10] MEDS ORDERED: Heparin Sod 1000 units/ml 10ml IV PRN (08:00)
--- NOTE | 2020-01-10 08:00 | NUR ---
NURSE NOTES: Morning vital signs taken. Morning nursing assessment done. The patient is stable at this time. Tolerating 2L NC well. No pain, nausea, or vomiting noted at this time upon asking. Will closely monitor the patient. Will continue plan of care.
--- NOTE | 2020-01-10 08:30 | NUR ---
NURSE NOTES: Dr. Quick ordered PT, PTT prior to thoracentesis. Dr. Quick ordered BMP after HD to follow up. Will carry out the order as soon as possible. Will closely monitor the patient. Will continue plan of care.
--- NOTE | 2020-01-10 08:38 | Pulmonology Progress Note ---
Subjective ROS Limited/Unobtainable: No Allergies: Coded Allergies: No Known Allergies (Unverified , 11/10/12) Subjective care noted reviewed vitals Objective Last 24 Hour Vital Signs Date Time Temp Pulse Resp B/P (MAP) Pulse Ox O2 Delivery O2 Flow Rate FiO2 01/10/20 07:00 70 15 101/85 (90) 01/10/20 06:26 139/40 01/10/20 06:00 71 16 139/40 (73) 100 01/10/20 05:15 66 8 165/78 (107) 100 01/10/20 05:00 67 15 165/68 (100) 100 01/10/20 04:15 67 10 156/74 (101) 100 01/10/20 04:00 98.7 68 11 159/79 (105) 100 01/10/20 04:00 Nasal Cannula 2.0 Nasal Cannula 2.0 Nasal Cannula 2.0 01/10/20 04:00 69 01/10/20 03:00 66 10 163/73 (103) 100 01/10/20 02:33 62 9 147/74 (98) 100 01/10/20 02:30 63 10 150/63 (92) 100 01/10/20 02:00 58 12 140/74 (96) 100 01/10/20 01:00 62 10 130/65 (86) 100 01/10/20 00:57 149/64 01/10/20 00:55 98.7 01/10/20 00:30 61 14 149/64 (92) 100 01/10/20 00:00 Nasal Cannula 2.0 Nasal Cannula 2.0 Nasal Cannula 2.0 01/10/20 00:00 98.9 62 18 151/63 (92) 100 01/10/20 00:00 61 01/09/20 23:30 63 16 103/66 (78) 100 01/09/20 23:00 64 14 118/32 (60) 100 01/09/20 22:00 69 20 159/67 (97) 100 01/09/20 22:00 69 20 159/67 (97) 100 01/09/20 21:43 99.2 01/09/20 21:00 72 15 160/85 (110) 100 01/09/20 20:30 71 15 156/61 (92) 94 11/15/20 20:21 64 154/64 11/15/20 20:00 98.8 73 14 158/62 (94) 100 01/09/20 20:00 72 01/09/20 20:00 Nasal Cannula 2.0 Nasal Cannula 2.0 Nasal Cannula 2.0 01/09/20 19:30 98 Nasal Cannula 2.0 28 01/09/20 19:00 64 10 154/64 (94) 99 01/09/20 18:19 142/55 01/09/20 18:19 62 142/55 01/09/20 18:00 62 16 142/55 (84) 98 01/09/20 17:00 63 12 143/58 (86) 100 01/09/20 16:00 99.2 63 11 135/67 (89) 100 01/09/20 16:00 64 01/09/20 16:00 Nasal Cannula 2.0 Nasal Cannula 2.0 Nasal Cannula 2.0 01/09/20 15:00 64 8 142/60 (87) 100 01/09/20 14:00 61 11 133/67 (89) 99 01/09/20 13:00 61 16 127/53 (77) 98 01/09/20 12:00 98.1 63 14 151/61 (91) 98 01/09/20 12:00 62 01/09/20 12:00 Nasal Cannula 2.0 Nasal Cannula 2.0 Nasal Cannula 2.0 01/09/20 11:52 150/61 01/09/20 11:00 69 12 167/59 (95) 100 01/09/20 10:00 76 21 149/66 (93) 100 01/09/20 09:30 76 21 149/66 (93) 100 01/09/20 09:00 74 11 172/73 (106) 99 01/09/20 08:41 73 187/76 01/09/20 08:41 187/76 01/09/20 08:41 187/86 01/09/20 08:41 73 187/76 Intake and Output 01/09/20 01/10/20 19:00 07:00 Intake Total 275.000 ml 110 ml Output Total 0 ml 2500 ml Balance 275.000 ml -2390 ml IV Total 275.000 ml 110 ml Output Urine Total 0 ml 0 ml Hemodialysis UF 2500 ml Objective WDWN NAD clear breath sounds bilaterally without rhonchi or wheeze [id number] without MRG NABS nontender no HSM no CCE nonfocal Microbiology Date/Time Source Procedure Growth Status 01/08/20 01:20 Nasopharynx SARS-CoV-2 RdRp Gene Assay - Final Complete 01/08/20 00:18 Nasal Nares MRSA Culture - Final NO METHICILLIN RESISTANT STAPH AUREUS... Complete Laboratory Tests 01/09/20 10:38: Uric Acid 4.4, Ammonia 20, Amylase Level 76, Lipase 56L 01/10/20 00:00: White Blood Count 5.1, Red Blood Count 3.30L, Hemoglobin 10.1L, Hematocrit 32.2L , Mean Corpuscular Volume 98, Mean Corpuscular Hemoglobin 30.7, Mean Corpuscular Hemoglobin Concent 31.5L, Red Cell Distribution Width 16.4H, Platelet Count 206, Mean Platelet Volume 8.6, Neutrophils (%) (Auto) 72.4, Lymphocytes (%) (Auto) 16.5L, Monocytes (%) (Auto) 9.6, Eosinophils (%) (Auto) 0.4, Basophils (%) (Auto) 1.0, Sodium Level 131L, Potassium Level 4.6, Chloride Level 95L, Carbon Dioxide Level 26, Anion Gap 10, Blood Urea Nitrogen 27H, Creatinine 5.3H, Estimat Glomerular Filtration Rate 8.6, Glucose Level 97, Calcium Level 8.2L 01/10/20 06:37: POC Whole Blood Glucose 95 Current Medications Medications (Trade) Dose Ordered Sig/Dereje Route PRN Reason Start Time Stop Time Status Last Admin Dose Admin Acetaminophen (Tylenol) 650 mg Q6H PRN ORAL Mild Pain (Pain Scale 1-3) 01/08/20 04:00 02/07/20 03:59 Acetaminophen/ Hydrocodone Bitart ([place] 5/325) 1 tab Q4H PRN ORAL Moderate Pain (Pain Scale 4-6) 01/08/20 04:00 01/15/20 03:59 01/09/20 21:13 Amlodipine Besylate (Norvasc) 10 mg BID ORAL 01/08/20 18:00 02/07/20 17:59 01/09/20 18:19 Cefepime HCl 500 mg/Dextrose 55 ml @ 110 mls/hr Q24H IV 01/08/20 23:00 01/15/20 22:59 01/09/20 23:25 Clonidine HCl (Catapres TTS-3) 2 patch QWEEK TDERMAL 01/08/20 14:00 04/07/20 13:59 01/08/20 14:42 Clonidine HCl (Catapres Tab) 0.1 mg EVERY 6 HOURS PRN ORAL For High Blood Pressure 01/08/20 04:00 04/07/20 03:59 Dextrose (Dextrose 50%) 25 ml Q30M PRN IV Hypoglycemia 01/08/20 04:00 04/07/20 03:59 Dextrose (Dextrose 50%) 50 ml Q30M PRN IV Hypoglycemia 01/08/20 04:00 04/07/20 03:59 01/08/20 17:17 Diphenhydramine HCl (Benadryl) 25 mg Q6H PRN IVP Itching 01/08/20 07:15 02/07/20 07:14 01/10/20 06:20 Gabapentin (Neurontin) 200 mg QHS ORAL 01/08/20 21:00 02/07/20 20:59 01/09/20 20:21 Heparin Sodium (Porcine) (Heparin Sod 1000 units/ml 10ml) 500 unit ONCE PRN IV HD 01/10/20 08:00 01/10/20 23:59 Hydralazine HCl (Apresoline) 20 mg Q6H PRN IV For High Blood Pressure 01/08/20 12:00 04/07/20 03:59 01/09/20 08:41 Hydralazine HCl (Apresoline) 100 mg Q6HR ORAL 01/08/20 12:00 04/07/20 11:59 01/10/20 06:26 Hydrocortisone (Hydrocortisone) 1 applic Q6H PRN TOPIC Itching 01/08/20 09:30 04/07/20 09:29 01/09/20 11:56 Hydromorphone HCl (Dilaudid) 1.5 mg EVERY 3 HOURS PRN IVP Severe Pain (Pain Scale 7-10) 01/09/20 01:15 01/16/20 01:14 01/10/20 00:25 Insulin Aspart (NovoLOG) BEFORE MEALS AND HS SUBQ 01/08/20 06:30 04/07/20 06:29 Insulin Detemir (Levemir) 10 units Q12HR SUBQ 01/08/20 09:00 04/07/20 08:59 01/08/20 09:32 Lisinopril (PriniviL) 40 mg DAILY ORAL 01/08/20 12:00 02/07/20 11:59 01/09/20 08:41 Metoclopramide HCl (Reglan) 5 mg Q8H PRN IVP Nausea & Vomiting 01/09/20 09:15 02/08/20 09:14 01/09/20 19:45 Metoprolol Tartrate (Lopressor) 25 mg Q12HR ORAL 01/08/20 12:00 04/07/20 11:59 01/09/20 20:21 Ondansetron HCl (Zofran) 6 mg EVERY 6 HOURS PRN IVP Nausea & Vomiting 01/09/20 01:15 02/08/20 01:14 01/09/20 03:35 Pantoprazole (Protonix) 40 mg EVERY 12 HOURS IVP 01/09/20 09:00 02/08/20 08:59 01/09/20 20:20 Sodium Chloride 1,000 ml @ 500 mls/hr Q2H PRN IVLG sbp<90 during hd 01/10/20 08:00 01/10/20 23:59 Vancomycin HCl ([facility] pharmacy to dose) 1 ea DAILY PRN MISC Per rx protocol 01/08/20 04:00 02/07/20 03:59 Assessment/Plan Assessment/Plan Impression: Hypertensive urgency ESRD on dialysis, right hydronephrosis - had previous nephrostomy Pneumonia Right Pleural effusion Congestive heart failure Hypoxia Abdominal pain Hyperglycemia Long QT interval Diabetes Pneumonia Plan: Antihypertensive IV Antibiotics O2 PRN Renal noted HD ID followup Cardiology consult Thoracentesis in AM Monitor labs medications/laboratory data/nursing notes/ICU care reviewed in detail note reviewed and edited care discussed with RN and RT ICU time spent >40 minutes Vitor Quick MD Jan 10, 2020 08:38
[2020-01-10] MEDS: Pantoprazole Inj IVP SCH ×2 (08:46→21:01)
[2020-01-10] MEDS: Lisinopril 20mg tab ORAL SCH (08:48)
[2020-01-10] MEDS: Levemir Flexpen SUBQ SCH ×2 (08:49→21:00)
--- NOTE | 2020-01-10 09:10 | NUR ---
NURSE NOTES: Dr. Quick at the bedside assessed the patient. Notified regarding the patient's condition. HD done with 2.5L out per Dr. Carcamo's order, pending PT, PTT, BMP blood test, NPO per order but no abdominal pain, nausea, vomiting at this time, and planning for thoracentesis today. Dr. Quick ordered renal soft diet. Dr. Quick ordered the patient to be transferred to telemetry floor. CRN was notified. The patient is stable at this time. Will closely monitor the patient. Will continue plan of care.
--- NOTE | 2020-01-10 10:00 | NUR ---
NURSE NOTES: Medications administered per order. The patient tolerated well. BS 97 noted. Levemir not administered per protocol. Will closely monitor the patient. Will continue plan of care.
--- NOTE | 2020-01-10 11:30 | NUR ---
NURSE NOTES: The patient is resting on the bed without acute distress or shortness of breath. Tolerating 2L NC well. No pain, nausea, vomiting, epigastric pain noted per patient's verbal response. BS 90 noted. No Novolog coverage per protocol. Offered the patient breakfast but the patient refused to eat at this time. Per patient's preference, apple sauce given and ate well. Pending thoracentesis that is scheduled today. Will closely monitor the patient. Will continue plan of care.
[2020-01-10 11:33] LABS: BASOPHILS % (AUTO) 1.3 % (0.0-2.0); EOSINOPHILS % (AUTO) 0.2 % (0.0-3.0); HEMATOCRIT 37.2 % (37.0-47.0); HEMOGLOBIN 11.1 G/DL (12.0-16.0); LYMPHOCYTES % (AUTO) 12.4 % (20.0-45.0); MEAN CORPUSCULAR VOLUME 99 FL (80-99); MONOCYTES % (AUTO) 8.7 % (1.0-10.0); NEUTROPHILS % (AUTO) 77.4 % (45.0-75.0); PLATELET COUNT 200 K/UL (150-450); RED BLOOD COUNT 3.75 M/UL (4.20-5.40); RED CELL DISTRIBUTION WIDTH 16.5 % (11.6-14.8); WHITE BLOOD COUNT 5.5 K/UL (4.8-10.8)
[2020-01-10 11:41] LABS: CALCIUM 9.4 MG/DL (8.5-10.1); CREATININE 3.5 MG/DL (0.55-1.30); POTASSIUM 4.3 MMOL/L (3.5-5.1)
--- NOTE | 2020-01-10 12:00 | NUR ---
NURSE HAND-OFF REPORT: Important Events on Shift: HD 2.5L out per Dr. Carcamo's order, No nausea, vomiting, epigastric pain, BP better control, Pending thoracentesis, Advancement of diet to soft renal diet, Downgrade to telemetry Patient Status: Stable, Full code Diet: Soft Renal Diet Pending Orders: Thoracentesis Pending Results/Labs: N Pending MD notification: N Latest Vital Signs: Temperature 98.2 , Pulse 64 , B/P 136 /68 , Respiratory Rate 18 , O2 SAT 98 , Nasal Cannula, O2 Flow Rate 2.0 . Vital Sign Comment: Stable EKG Rhythm: Sinus Rhythm Rhythm change?: N MD Notified?: - MD Response: Latest Dominique Fall Score: 35 Fall Risk: Medium Risk Safety Measures: Call light Within Reach, Bed Alarm Zone 1, Side Rails Side Rails x2, Bed position Low and Locked. Fall Precautions: Yellow Socks Yellow Gown Door Sign Patient Fall Education Report given to TOMI Michael. The patient is stable at this time. Endorsed plan of care.
--- NOTE | 2020-01-10 12:04 | Infectious Diseases Prog Note ---
Assessment/Plan Assessment/Plan antibiotics : vancomycin iv, cefepime A 1. Pneumonia. 2. Diabetes. 3. Hypertension. 4. Renal failure on dialysis. P 1. continue iv vancomycin, cefepime 2. will follow up cultures Subjective ROS Limited/Unobtainable: Yes Allergies: Coded Allergies: No Known Allergies (Unverified , 11/10/12) Objective Last 24 Hour Vital Signs Date Time Temp Pulse Resp B/P (MAP) Pulse Ox O2 Delivery O2 Flow Rate FiO2 01/10/20 11:36 142/60 01/10/20 11:30 67 14 139/62 (87) 100 01/10/20 11:00 67 14 147/64 (91) 100 01/10/20 10:00 67 18 150/65 (93) 100 01/10/20 09:00 67 18 148/75 (99) 100 01/10/20 08:48 153/63 01/10/20 08:48 68 153/63 01/10/20 08:47 68 153/63 01/10/20 08:00 98.8 69 16 153/63 (93) 100 01/10/20 07:00 70 15 101/85 (90) 01/10/20 06:26 139/40 01/10/20 06:00 71 16 139/40 (73) 100 01/10/20 05:15 66 8 165/78 (107) 100 01/10/20 05:00 67 15 165/68 (100) 100 01/10/20 04:15 67 10 156/74 (101) 100 01/10/20 04:00 98.7 68 11 159/79 (105) 100 01/10/20 04:00 Nasal Cannula 2.0 Nasal Cannula 2.0 Nasal Cannula 2.0 01/10/20 04:00 69 01/10/20 03:00 66 10 163/73 (103) 100 01/10/20 02:33 62 9 147/74 (98) 100 01/10/20 02:30 63 10 150/63 (92) 100 01/10/20 02:00 58 12 140/74 (96) 100 01/10/20 01:00 62 10 130/65 (86) 100 01/10/20 00:57 149/64 01/10/20 00:55 98.7 01/10/20 00:30 61 14 149/64 (92) 100 01/10/20 00:00 Nasal Cannula 2.0 Nasal Cannula 2.0 Nasal Cannula 2.0 01/10/20 00:00 98.9 62 18 151/63 (92) 100 01/10/20 00:00 61 01/09/20 23:30 63 16 103/66 (78) 100 01/09/20 23:00 64 14 118/32 (60) 100 01/09/20 22:00 69 20 159/67 (97) 100 01/09/20 22:00 69 20 159/67 (97) 100 01/09/20 21:43 99.2 01/09/20 21:00 72 15 160/85 (110) 100 01/09/20 20:30 71 15 156/61 (92) 94 01/09/20 20:21 64 154/64 01/09/20 20:00 98.8 73 14 158/62 (94) 100 01/09/20 20:00 72 01/09/20 20:00 Nasal Cannula 2.0 Nasal Cannula 2.0 Nasal Cannula 2.0 01/09/20 19:30 98 Nasal Cannula 2.0 28 01/09/20 19:00 64 10 154/64 (94) 99 01/09/20 18:19 142/55 01/09/20 18:19 62 142/55 01/09/20 18:00 62 16 142/55 (84) 98 01/09/20 17:00 63 12 143/58 (86) 100 01/09/20 16:00 99.2 63 11 135/67 (89) 100 01/09/20 16:00 64 01/09/20 16:00 Nasal Cannula 2.0 Nasal Cannula 2.0 Nasal Cannula 2.0 01/09/20 15:00 64 8 142/60 (87) 100 01/09/20 14:00 61 11 133/67 (89) 99 01/09/20 13:00 61 16 127/53 (77) 98 Height (Feet): 5 Weight (Pounds): 130 Respiratory/Chest: lungs clear Cardiovascular: normal rate, regular rhythm, no gallop/murmur Abdomen: soft, non tender Extremities: no edema Microbiology Date/Time Source Procedure Growth Status 01/08/20 01:20 Nasopharynx SARS-CoV-2 RdRp Gene Assay - Final Complete 01/08/20 00:18 Nasal Nares MRSA Culture - Final NO METHICILLIN RESISTANT STAPH AUREUS... Complete Laboratory Tests Test 01/10/20 00:00 01/10/20 06:37 01/10/20 08:43 01/10/20 10:50 White Blood Count 5.1 K/UL (4.8-10.8) 5.5 K/UL (4.8-10.8) Red Blood Count 3.30 M/UL (4.20-5.40) L 3.75 M/UL (4.20-5.40) L Hemoglobin 10.1 G/DL (12.0-16.0) L 11.1 G/DL (12.0-16.0) L Hematocrit 32.2 % (37.0-47.0) L 37.2 % (37.0-47.0) Mean Corpuscular Volume 98 FL (80-99) 99 FL (80-99) Mean Corpuscular Hemoglobin 30.7 PG (27.0-31.0) 29.6 PG (27.0-31.0) Mean Corpuscular Hemoglobin Concent 31.5 G/DL (32.0-36.0) L 29.8 G/DL (32.0-36.0) L Red Cell Distribution Width 16.4 % (11.6-14.8) H 16.5 % (11.6-14.8) H Platelet Count 206 K/UL (150-450) 200 K/UL (150-450) Mean Platelet Volume 8.6 FL (6.5-10.1) 8.9 FL (6.5-10.1) Neutrophils (%) (Auto) 72.4 % (45.0-75.0) 77.4 % (45.0-75.0) H Lymphocytes (%) (Auto) 16.5 % (20.0-45.0) L 12.4 % (20.0-45.0) L Monocytes (%) (Auto) 9.6 % (1.0-10.0) 8.7 % (1.0-10.0) Eosinophils (%) (Auto) 0.4 % (0.0-3.0) 0.2 % (0.0-3.0) Basophils (%) (Auto) 1.0 % (0.0-2.0) 1.3 % (0.0-2.0) Sodium Level 131 MMOL/L (136-145) L 134 MMOL/L (136-145) L Potassium Level 4.6 MMOL/L (3.5-5.1) 4.3 MMOL/L (3.5-5.1) Chloride Level 95 MMOL/L (98-107) L 98 MMOL/L (98-107) Carbon Dioxide Level 26 MMOL/L (21-32) 24 MMOL/L (21-32) Anion Gap 10 mmol/L (5-15) 12 mmol/L (5-15) Blood Urea Nitrogen 27 mg/dL (7-18) H 16 mg/dL (7-18) Creatinine 5.3 MG/DL (0.55-1.30) H 3.5 MG/DL (0.55-1.30) H Estimat Glomerular Filtration Rate 8.6 mL/min (>60) 13.9 mL/min (>60) Glucose Level 97 MG/DL (74-106) 100 MG/DL (74-106) Calcium Level 8.2 MG/DL (8.5-10.1) L 9.4 MG/DL (8.5-10.1) POC Whole Blood Glucose 95 MG/DL (74-106) Pending Prothrombin Time 11.5 SEC (9.30-11.50) Prothromb Time International Ratio 1.0 (0.9-1.1) Activated Partial Thromboplast Time 31 SEC (23-33) Random Vancomycin Level 21.1 ug/mL Current Medications Medications (Trade) Dose Ordered Sig/Dereje Route PRN Reason Start Time Stop Time Status Last Admin Dose Admin Acetaminophen (Tylenol) 650 mg Q6H PRN ORAL Mild Pain (Pain Scale 1-3) 01/08/20 04:00 02/07/20 03:59 Acetaminophen/ Hydrocodone Bitart ([place] 5/325) 1 tab Q4H PRN ORAL Moderate Pain (Pain Scale 4-6) 01/08/20 04:00 01/15/20 03:59 01/09/20 21:13 Amlodipine Besylate (Norvasc) 10 mg BID ORAL 01/08/20 18:00 02/07/20 17:59 01/10/20 08:48 Cefepime HCl 500 mg/Dextrose 55 ml @ 110 mls/hr Q24H IV 01/08/20 23:00 01/15/20 22:59 01/09/20 23:25 Clonidine HCl (Catapres TTS-3) 2 patch QWEEK TDERMAL 01/08/20 14:00 04/07/20 13:59 01/08/20 14:42 Clonidine HCl (Catapres Tab) 0.1 mg EVERY 6 HOURS PRN ORAL For High Blood Pressure 01/08/20 04:00 04/07/20 03:59 Dextrose (Dextrose 50%) 25 ml Q30M PRN IV Hypoglycemia 01/08/20 04:00 04/07/20 03:59 Dextrose (Dextrose 50%) 50 ml Q30M PRN IV Hypoglycemia 01/08/20 04:00 04/07/20 03:59 01/08/20 17:17 Diphenhydramine HCl (Benadryl) 25 mg Q6H PRN IVP Itching 01/08/20 07:15 02/07/20 07:14 01/10/20 06:20 Gabapentin (Neurontin) 200 mg QHS ORAL 01/08/20 21:00 02/07/20 20:59 01/09/20 20:21 Heparin Sodium (Porcine) (Heparin Sod 1000 units/ml 10ml) 500 unit ONCE PRN IV HD 01/10/20 08:00 01/10/20 23:59 Hydralazine HCl (Apresoline) 20 mg Q6H PRN IV For High Blood Pressure 01/08/20 12:00 04/07/20 03:59 01/09/20 08:41 Hydralazine HCl (Apresoline) 100 mg Q6HR ORAL 01/08/20 12:00 04/07/20 11:59 01/10/20 11:36 Hydrocortisone (Hydrocortisone) 1 applic Q6H PRN TOPIC Itching 01/08/20 09:30 04/07/20 09:29 01/09/20 11:56 Hydromorphone HCl (Dilaudid) 1.5 mg EVERY 3 HOURS PRN IVP Severe Pain (Pain Scale 7-10) 01/09/20 01:15 01/16/20 01:14 01/10/20 00:25 Insulin Aspart (NovoLOG) BEFORE MEALS AND HS SUBQ 01/08/20 06:30 04/07/20 06:29 Insulin Detemir (Levemir) 10 units Q12HR SUBQ 01/08/20 09:00 04/07/20 08:59 01/08/20 09:32 Lisinopril (PriniviL) 40 mg DAILY ORAL 01/08/20 12:00 02/07/20 11:59 01/10/20 08:48 Metoclopramide HCl (Reglan) 5 mg Q8H PRN IVP Nausea & Vomiting 01/09/20 09:15 02/08/20 09:14 01/09/20 19:45 Metoprolol Tartrate (Lopressor) 25 mg Q12HR ORAL 01/08/20 12:00 04/07/20 11:59 01/10/20 08:47 Ondansetron HCl (Zofran) 6 mg EVERY 6 HOURS PRN IVP Nausea & Vomiting 01/09/20 01:15 02/08/20 01:14 01/09/20 03:35 Pantoprazole (Protonix) 40 mg EVERY 12 HOURS IVP 01/09/20 09:00 02/08/20 08:59 01/10/20 08:46 Sodium Chloride 1,000 ml @ 500 mls/hr Q2H PRN IVLG sbp<90 during hd 01/10/20 08:00 01/10/20 23:59 Vancomycin HCl (Vanco pharmacy to dose) 1 ea DAILY PRN MISC Per rx protocol 01/08/20 04:00 02/07/20 03:59 Aurelia Cloud MD Jan 10, 2020 12:04
--- NOTE | 2020-01-10 12:50 | NUR ---
NURSE NOTES: Patient transferred to Tele unit room 221-1 via bed - patient awake oriented to name and age - unable to remember her date of . patient blind on both eyes. Connected to tele box showr ST no ectopy . AV Fistula patent @ ANABELLA- both SL patent @ ALYSSIA- no s/s infiltration noted. patient on O2 2l/min via N/C -Sao2 100%. Report given to Eileen KRISHNA. Endorsed
--- NOTE | 2020-01-10 13:05 | NUR ---
NURSE NOTES: Patient transferred to from ICU to room 221-1 via bed. Received report from Fernanda/RN. Patient awake, oriented to name and age, patient blind on both eyes. Connected to integrated logistics programs director. AV Fistula patent @ ANABELLA and IV left FA 20G SL, patent and clean, no s/s infiltration noted. Patient on 2L nasal cannula, Sao2 100%. Belongings check list done and signed.
--- NOTE | 2020-01-10 14:07 | General Progress Note ---
Subjective ROS Limited/Unobtainable: No Allergies: Coded Allergies: No Known Allergies (Unverified , 11/10/12) Objective Last 24 Hour Vital Signs Date Time Temp Pulse Resp B/P (MAP) Pulse Ox O2 Delivery O2 Flow Rate FiO2 01/10/20 12:00 98.6 67 15 142/60 (87) 100 01/10/20 12:00 65 01/10/20 11:36 142/60 01/10/20 11:30 67 14 139/62 (87) 100 01/10/20 11:00 67 14 147/64 (91) 100 01/10/20 10:00 67 18 150/65 (93) 100 01/10/20 09:00 67 18 148/75 (99) 100 01/10/20 08:48 153/63 01/10/20 08:48 68 153/63 01/10/20 08:47 68 153/63 01/10/20 08:00 98.8 69 16 153/63 (93) 100 01/10/20 07:00 70 15 101/85 (90) 01/10/20 06:26 139/40 01/10/20 06:00 71 16 139/40 (73) 100 01/10/20 05:15 66 8 165/78 (107) 100 01/10/20 05:00 67 15 165/68 (100) 100 01/10/20 04:15 67 10 156/74 (101) 100 01/10/20 04:00 98.7 68 11 159/79 (105) 100 01/10/20 04:00 Nasal Cannula 2.0 Nasal Cannula 2.0 Nasal Cannula 2.0 01/10/20 04:00 69 01/10/20 03:00 66 10 163/73 (103) 100 01/10/20 02:33 62 9 147/74 (98) 100 01/10/20 02:30 63 10 150/63 (92) 100 01/10/20 02:00 58 12 140/74 (96) 100 01/10/20 01:00 62 10 130/65 (86) 100 01/10/20 00:57 149/64 01/10/20 00:55 98.7 01/10/20 00:30 61 14 149/64 (92) 100 01/10/20 00:00 Nasal Cannula 2.0 Nasal Cannula 2.0 Nasal Cannula 2.0 01/10/20 00:00 98.9 62 18 151/63 (92) 100 01/10/20 00:00 61 01/09/20 23:30 63 16 103/66 (78) 100 01/09/20 23:00 64 14 118/32 (60) 100 01/09/20 22:00 69 20 159/67 (97) 100 01/09/20 22:00 69 20 159/67 (97) 100 01/09/20 21:43 99.2 01/09/20 21:00 72 15 160/85 (110) 100 01/09/20 20:30 71 15 156/61 (92) 94 01/09/20 20:21 64 154/64 01/09/20 20:00 98.8 73 14 158/62 (94) 100 01/09/20 20:00 72 01/09/20 20:00 Nasal Cannula 2.0 Nasal Cannula 2.0 Nasal Cannula 2.0 01/09/20 19:30 98 Nasal Cannula 2.0 28 01/09/20 19:00 64 10 154/64 (94) 99 01/09/20 18:19 142/55 01/09/20 18:19 62 142/55 01/09/20 18:00 62 16 142/55 (84) 98 01/09/20 17:00 63 12 143/58 (86) 100 01/09/20 16:00 99.2 63 11 135/67 (89) 100 01/09/20 16:00 64 01/09/20 16:00 Nasal Cannula 2.0 Nasal Cannula 2.0 Nasal Cannula 2.0 01/09/20 15:00 64 8 142/60 (87) 100 Intake and Output 01/09/20 01/10/20 19:00 07:00 Intake Total 275.000 ml 110 ml Output Total 0 ml 2500 ml Balance 275.000 ml -2390 ml IV Total 275.000 ml 110 ml Output Urine Total 0 ml 0 ml Hemodialysis UF 2500 ml Laboratory Tests 01/10/20 00:00: White Blood Count 5.1, Red Blood Count 3.30L, Hemoglobin 10.1L, Hematocrit 32.2L , Mean Corpuscular Volume 98, Mean Corpuscular Hemoglobin 30.7, Mean Corpuscular Hemoglobin Concent 31.5L, Red Cell Distribution Width 16.4H, Platelet Count 206, Mean Platelet Volume 8.6, Neutrophils (%) (Auto) 72.4, Lymphocytes (%) (Auto) 16.5L, Monocytes (%) (Auto) 9.6, Eosinophils (%) (Auto) 0.4, Basophils (%) (Auto) 1.0, Sodium Level 131L, Potassium Level 4.6, Chloride Level 95L, Carbon Dioxide Level 26, Anion Gap 10, Blood Urea Nitrogen 27H, Creatinine 5.3H, Estimat Glomerular Filtration Rate 8.6, Glucose Level 97, Calcium Level 8.2L 01/10/20 06:37: POC Whole Blood Glucose 95 01/10/20 08:43: POC Whole Blood Glucose [Pending] 01/10/20 10:50: White Blood Count 5.5, Red Blood Count 3.75L, Hemoglobin 11.1L, Hematocrit 37.2, Mean Corpuscular Volume 99, Mean Corpuscular Hemoglobin 29.6, Mean Corpuscular Hemoglobin Concent 29.8L, Red Cell Distribution Width 16.5H, Platelet Count 200, Mean Platelet Volume 8.9, Neutrophils (%) (Auto) 77.4H, Lymphocytes (%) (Auto) 12.4L, Monocytes (%) (Auto) 8.7, Eosinophils (%) (Auto) 0.2, Basophils (%) (Auto) 1.3, Sodium Level 134L, Potassium Level 4.3, Chloride Level 98, Carbon Dioxide Level 24, Anion Gap 12, Blood Urea Nitrogen 16, Creatinine 3.5H, Estimat Glomerular Filtration Rate 13.9, Glucose Level 100, Calcium Level 9.4, Prothrombin Time 11.5, Prothromb Time International Ratio 1.0, Activated Partial Thromboplast Time 31, Random Vancomycin Level 21.1 Height (Feet): 5 Weight (Pounds): 130 General Appearance: no apparent distress EENT: normal ENT inspection Neck: supple Cardiovascular: normal rate Respiratory/Chest: decreased breath sounds Abdomen: normal bowel sounds, non tender, soft Extremities: non-tender Assessment/Plan Assessment/Plan: htn ESRD anemia n/v DM large right sided pleural effusion hydronephrosis reglan tight BS control ppi fu labs HD per nephrology Mark Sy MD Jan 10, 2020 14:07
--- NOTE | 2020-01-10 15:18 | NUR ---
NURSE NOTES: Contacted Dr Quick, to let him know that patient was scheduled for a thoracentesis today, but according to radiology patient was not alerted enough to sign the consent and procedure was postponed. I was unable to reach the family member for consent. Waiting for a call back.
--- NOTE | 2020-01-10 15:59 | Nephrology Progress Note ---
Assessment/Plan Problem List: (1) ESRD (end stage renal disease) on dialysis (2) Abdominal pain (3) CHF (congestive heart failure) (4) Gastritis (5) Malignant hypertension (arteriolar nephrosclerosis) (6) Metabolic encephalopathy Plan avoid tramadol in eskd, minimize opiates, reglan can also caause encephalopathy, serial HD, titrate bp meds, GI eval ongoing Subjective ROS Limited/Unobtainable: Yes Objective Objective Last 24 Hour Vital Signs Date Time Temp Pulse Resp B/P (MAP) Pulse Ox O2 Delivery O2 Flow Rate FiO2 01/10/20 12:00 98.6 67 15 142/60 (87) 100 01/10/20 12:00 65 01/10/20 12:00 Nasal Cannula 2.0 Nasal Cannula 2.0 Nasal Cannula 2.0 01/10/20 11:36 142/60 01/10/20 11:30 67 14 139/62 (87) 100 01/10/20 11:00 67 14 147/64 (91) 100 01/10/20 10:00 67 18 150/65 (93) 100 01/10/20 09:00 67 18 148/75 (99) 100 01/10/20 08:48 153/63 01/10/20 08:48 68 153/63 01/10/20 08:47 68 153/63 01/10/20 08:00 Nasal Cannula 2.0 Nasal Cannula 2.0 Nasal Cannula 2.0 01/10/20 08:00 98.8 69 16 153/63 (93) 100 01/10/20 07:00 70 15 101/85 (90) 01/10/20 06:26 139/40 01/10/20 06:00 71 16 139/40 (73) 100 01/10/20 05:15 66 8 165/78 (107) 100 01/10/20 05:00 67 15 165/68 (100) 100 01/10/20 04:15 67 10 156/74 (101) 100 01/10/20 04:00 98.7 68 11 159/79 (105) 100 01/10/20 04:00 Nasal Cannula 2.0 Nasal Cannula 2.0 Nasal Cannula 2.0 01/10/20 04:00 69 01/10/20 03:00 66 10 163/73 (103) 100 01/10/20 02:33 62 9 147/74 (98) 100 01/10/20 02:30 63 10 150/63 (92) 100 01/10/20 02:00 58 12 140/74 (96) 100 01/10/20 01:00 62 10 130/65 (86) 100 01/10/20 00:57 149/64 01/10/20 00:55 98.7 01/10/20 00:30 61 14 149/64 (92) 100 01/10/20 00:00 Nasal Cannula 2.0 Nasal Cannula 2.0 Nasal Cannula 2.0 01/10/20 00:00 98.9 62 18 151/63 (92) 100 01/10/20 00:00 61 01/09/20 23:30 63 16 103/66 (78) 100 01/09/20 23:00 64 14 118/32 (60) 100 01/09/20 22:00 69 20 159/67 (97) 100 01/09/20 22:00 69 20 159/67 (97) 100 01/09/20 21:43 99.2 01/09/20 21:00 72 15 160/85 (110) 100 01/09/20 20:30 71 15 156/61 (92) 94 01/09/20 20:21 64 154/64 01/09/20 20:00 98.8 73 14 158/62 (94) 100 01/09/20 20:00 72 01/09/20 20:00 Nasal Cannula 2.0 Nasal Cannula 2.0 Nasal Cannula 2.0 01/09/20 19:30 98 Nasal Cannula 2.0 28 01/09/20 19:00 64 10 154/64 (94) 99 01/09/20 18:19 142/55 01/09/20 18:19 62 142/55 01/09/20 18:00 62 16 142/55 (84) 98 01/09/20 17:00 63 12 143/58 (86) 100 01/09/20 16:00 99.2 63 11 135/67 (89) 100 01/09/20 16:00 64 01/09/20 16:00 Nasal Cannula 2.0 Nasal Cannula 2.0 Nasal Cannula 2.0 Intake and Output 01/09/20 01/10/20 19:00 07:00 Intake Total 275.000 ml 110 ml Output Total 0 ml 2500 ml Balance 275.000 ml -2390 ml IV Total 275.000 ml 110 ml Output Urine Total 0 ml 0 ml Hemodialysis UF 2500 ml Laboratory Tests 01/10/20 00:00: White Blood Count 5.1, Red Blood Count 3.30L, Hemoglobin 10.1L, Hematocrit 32.2L , Mean Corpuscular Volume 98, Mean Corpuscular Hemoglobin 30.7, Mean Corpuscular Hemoglobin Concent 31.5L, Red Cell Distribution Width 16.4H, Platelet Count 206, Mean Platelet Volume 8.6, Neutrophils (%) (Auto) 72.4, Lymphocytes (%) (Auto) 16.5L, Monocytes (%) (Auto) 9.6, Eosinophils (%) (Auto) 0.4, Basophils (%) (Auto) 1.0, Sodium Level 131L, Potassium Level 4.6, Chloride Level 95L, Carbon Dioxide Level 26, Anion Gap 10, Blood Urea Nitrogen 27H, Creatinine 5.3H, Estimat Glomerular Filtration Rate 8.6, Glucose Level 97, Calcium Level 8.2L 01/10/20 06:37: POC Whole Blood Glucose 95 01/10/20 08:43: POC Whole Blood Glucose [Pending] 01/10/20 10:50: White Blood Count 5.5, Red Blood Count 3.75L, Hemoglobin 11.1L, Hematocrit 37.2, Mean Corpuscular Volume 99, Mean Corpuscular Hemoglobin 29.6, Mean Corpuscular Hemoglobin Concent 29.8L, Red Cell Distribution Width 16.5H, Platelet Count 200, Mean Platelet Volume 8.9, Neutrophils (%) (Auto) 77.4H, Lymphocytes (%) (Auto) 12.4L, Monocytes (%) (Auto) 8.7, Eosinophils (%) (Auto) 0.2, Basophils (%) (Auto) 1.3, Sodium Level 134L, Potassium Level 4.3, Chloride Level 98, Carbon Dioxide Level 24, Anion Gap 12, Blood Urea Nitrogen 16, Creatinine 3.5H, Estimat Glomerular Filtration Rate 13.9, Glucose Level 100, Calcium Level 9.4, Prothrombin Time 11.5, Prothromb Time International Ratio 1.0, Activated Partial Thromboplast Time 31, Random Vancomycin Level 21.1 Height (Feet): 5 Weight (Pounds): 130 General Appearance: alert, confused EENT: other - blind Neck: normal alignment Cardiovascular: normal rate Respiratory/Chest: lungs clear Abdomen: non tender, soft Extremities: no edema Neurologic: butter grader II-XII grossly normal Wayne aCrcamo MD Jan 10, 2020 15:59
--- NOTE | 2020-01-10 16:21 | NUR ---
INSURANCE FAXED CLINICALS TO [facility] /[facility] [phone] FX PH [phone] PH [phone]
--- NOTE | 2020-01-10 17:34 | NUR ---
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 98.6 HR 67 RR 15 B/P 142/60 2L NC O2 SAT @ 98% K 3.5 IS: PROTONIX IV CEFEPIME IV LISINOPRIL PO NORVASC PO TELE STATUS
[2020-01-10 18:43] LABS: CALCIUM 8.8 MG/DL (8.5-10.1); CREATININE 4.1 MG/DL (0.55-1.30); POTASSIUM 4.9 MMOL/L (3.5-5.1)
--- NOTE | 2020-01-10 18:49 | Surgery Progress Note ---
Surgery Progress Note Subjective Additional Comments duplex noted no n/v labs pending comfortable Objective Last 24 Hour Vital Signs Date Time Temp Pulse Resp B/P (MAP) Pulse Ox O2 Delivery O2 Flow Rate FiO2 01/10/20 17:05 147/73 01/10/20 17:05 65 147/73 01/10/20 16:00 98.2 65 18 147/73 (97) 98 01/10/20 16:00 65 01/10/20 12:00 98.6 67 15 142/60 (87) 100 01/10/20 12:00 65 01/10/20 12:00 Nasal Cannula 2.0 Nasal Cannula 2.0 Nasal Cannula 2.0 01/10/20 11:36 142/60 01/10/20 11:30 67 14 139/62 (87) 100 01/10/20 11:00 67 14 147/64 (91) 100 01/10/20 10:00 67 18 150/65 (93) 100 01/10/20 09:00 67 18 148/75 (99) 100 01/10/20 08:48 153/63 01/10/20 08:48 68 153/63 01/10/20 08:47 68 153/63 01/10/20 08:00 Nasal Cannula 2.0 Nasal Cannula 2.0 Nasal Cannula 2.0 01/10/20 08:00 98.8 69 16 153/63 (93) 100 01/10/20 07:00 70 15 101/85 (90) 01/10/20 06:26 139/40 01/10/20 06:00 71 16 139/40 (73) 100 01/10/20 05:15 66 8 165/78 (107) 100 01/10/20 05:00 67 15 165/68 (100) 100 01/10/20 04:15 67 10 156/74 (101) 100 01/10/20 04:00 98.7 68 11 159/79 (105) 100 01/10/20 04:00 Nasal Cannula 2.0 Nasal Cannula 2.0 Nasal Cannula 2.0 01/10/20 04:00 69 01/10/20 03:00 66 10 163/73 (103) 100 01/10/20 02:33 62 9 147/74 (98) 100 01/10/20 02:30 63 10 150/63 (92) 100 01/10/20 02:00 58 12 140/74 (96) 100 01/10/20 01:00 62 10 130/65 (86) 100 01/10/20 00:57 149/64 01/10/20 00:55 98.7 01/10/20 00:30 61 14 149/64 (92) 100 01/10/20 00:00 Nasal Cannula 2.0 Nasal Cannula 2.0 Nasal Cannula 2.0 01/10/20 00:00 98.9 62 18 151/63 (92) 100 01/10/20 00:00 61 01/09/20 23:30 63 16 103/66 (78) 100 01/09/20 23:00 64 14 118/32 (60) 100 01/09/20 22:00 69 20 159/67 (97) 100 01/09/20 22:00 69 20 159/67 (97) 100 01/09/20 21:43 99.2 01/09/20 21:00 72 15 160/85 (110) 100 01/09/20 20:30 71 15 156/61 (92) 94 01/09/20 20:21 64 154/64 01/09/20 20:00 98.8 73 14 158/62 (94) 100 01/09/20 20:00 72 01/09/20 20:00 Nasal Cannula 2.0 Nasal Cannula 2.0 Nasal Cannula 2.0 01/09/20 19:30 98 Nasal Cannula 2.0 28 01/09/20 19:00 64 10 154/64 (94) 99 I&O Intake and Output 01/09/20 01/10/20 19:00 07:00 Intake Total 275.000 ml 110 ml Output Total 0 ml 2500 ml Balance 275.000 ml -2390 ml IV Total 275.000 ml 110 ml Output Urine Total 0 ml 0 ml Hemodialysis UF 2500 ml Dressing: saturated Cardiovascular: RSR Respiratory: decreased breath sounds Abdomen: soft, non-tender, present bowel sounds Extremities: no edema, no tenderness, no cyanosis, pulses, other Laboratory Tests Test 01/10/20 00:00 01/10/20 06:37 01/10/20 08:43 01/10/20 10:50 White Blood Count 5.1 K/UL (4.8-10.8) 5.5 K/UL (4.8-10.8) Red Blood Count 3.30 M/UL (4.20-5.40) L 3.75 M/UL (4.20-5.40) L Hemoglobin 10.1 G/DL (12.0-16.0) L 11.1 G/DL (12.0-16.0) L Hematocrit 32.2 % (37.0-47.0) L 37.2 % (37.0-47.0) Mean Corpuscular Volume 98 FL (80-99) 99 FL (80-99) Mean Corpuscular Hemoglobin 30.7 PG (27.0-31.0) 29.6 PG (27.0-31.0) Mean Corpuscular Hemoglobin Concent 31.5 G/DL (32.0-36.0) L 29.8 G/DL (32.0-36.0) L Red Cell Distribution Width 16.4 % (11.6-14.8) H 16.5 % (11.6-14.8) H Platelet Count 206 K/UL (150-450) 200 K/UL (150-450) Mean Platelet Volume 8.6 FL (6.5-10.1) 8.9 FL (6.5-10.1) Neutrophils (%) (Auto) 72.4 % (45.0-75.0) 77.4 % (45.0-75.0) H Lymphocytes (%) (Auto) 16.5 % (20.0-45.0) L 12.4 % (20.0-45.0) L Monocytes (%) (Auto) 9.6 % (1.0-10.0) 8.7 % (1.0-10.0) Eosinophils (%) (Auto) 0.4 % (0.0-3.0) 0.2 % (0.0-3.0) Basophils (%) (Auto) 1.0 % (0.0-2.0) 1.3 % (0.0-2.0) Sodium Level 131 MMOL/L (136-145) L 134 MMOL/L (136-145) L Potassium Level 4.6 MMOL/L (3.5-5.1) 4.3 MMOL/L (3.5-5.1) Chloride Level 95 MMOL/L (98-107) L 98 MMOL/L (98-107) Carbon Dioxide Level 26 MMOL/L (21-32) 24 MMOL/L (21-32) Anion Gap 10 mmol/L (5-15) 12 mmol/L (5-15) Blood Urea Nitrogen 27 mg/dL (7-18) H 16 mg/dL (7-18) Creatinine 5.3 MG/DL (0.55-1.30) H 3.5 MG/DL (0.55-1.30) H Estimat Glomerular Filtration Rate 8.6 mL/min (>60) 13.9 mL/min (>60) Glucose Level 97 MG/DL (74-106) 100 MG/DL (74-106) Calcium Level 8.2 MG/DL (8.5-10.1) L 9.4 MG/DL (8.5-10.1) POC Whole Blood Glucose 95 MG/DL (74-106) Pending Prothrombin Time 11.5 SEC (9.30-11.50) Prothromb Time International Ratio 1.0 (0.9-1.1) Activated Partial Thromboplast Time 31 SEC (23-33) Random Vancomycin Level 21.1 ug/mL Test 01/10/20 16:44 01/10/20 18:00 POC Whole Blood Glucose 79 MG/DL (74-106) Sodium Level Pending Potassium Level Pending Chloride Level Pending Carbon Dioxide Level Pending Blood Urea Nitrogen Pending Creatinine Pending Estimat Glomerular Filtration Rate Pending Glucose Level Pending Calcium Level Pending Random Vancomycin Level Pending Plan Problems: (1) Heel ulcer Assessment & Plan: identified to have heel ulcer on R upon admission. unstageable ulcer with small necrotic eschar. cover with optifoam and elevate heel left side with TMA (2) Hyperglycemia (3) CHF (congestive heart failure) (4) Long QT interval (5) Shortness of breath (6) Pleural effusion (7) Hypoxia (8) Pneumonia (9) Abdominal pain Assessment & Plan: 49F abd pain with HD. had after HD recently and acute worsening. came in for eval admitted for care and feels better now no n/v/f/c pain resolved but believes will occur after HD CT reviewed may need outpatient CTA or angio okay for diet currently abd exam benign ABDOMEN: Liver: Unremarkable. No mass. Gallbladder and bile ducts: Unremarkable. No calcified stones. No ductal dilation. Pancreas: Unremarkable. No mass. No ductal dilation. Spleen: Unremarkable. No splenomegaly. Adrenals: Unremarkable. No mass. Kidneys and ureters: Atrophy of the left kidney. Severe right hydronephrosis. No obvious obstructing stone or mass. Stomach and bowel: Unremarkable. No obstruction. No mucosal thickening. PELVIS: Appendix: No findings to suggest acute appendicitis. Bladder: Unremarkable. No mass. Reproductive: Unremarkable as visualized. ABDOMEN and PELVIS: Intraperitoneal space: Moderate abdominal and pelvic free fluid. No free air. Bones/joints: No acute fracture. No dislocation. Soft tissues: Unremarkable. Vasculature: Diffuse atherosclerotic vascular disease. No abdominal aortic aneurysm. Lymph nodes: Unremarkable. No enlarged lymph nodes. IMPRESSION: 1. Severe right hydronephrosis. No obvious obstructing stone or mass. 2. Moderate peritoneal and pelvic free fluid. 3. Prominent atherosclerotic vascular disease. Right deep veins: No DVT in the right internal jugular, subclavian, axillary, or brachial veins. The veins demonstrate normal color flow, are normally compressible, with normal phasic flow and/or augmentation response. Right superficial veins: No thrombus in the visualized right basilic and cephalic veins. ----- Left deep veins: No DVT in the left internal jugular, subclavian, axillary, or brachial veins. The veins demonstrate normal color flow, are normally compressible, with normal phasic flow and/or augmentation response. Left superficial veins: No thrombus in the visualized left basilic and cephalic veins. IMPRESSION: No deep venous thrombosis within the bilateral lower extremities. (10) ESRD (end stage renal disease) on dialysis (11) Hypertensive emergency (12) Acute lower urinary tract infection (13) Dehydration Sergio Lara Jan 10, 2020 18:49
--- NOTE | 2020-01-10 19:35 | NUR ---
NURSE HAND-OFF REPORT: Important Events on Shift:Trasferred from ICU, positive for VRE rectum, pt refused to eat. Patient Status: Stable Diet: Renal Pending Orders: Pending Results/Labs: Pending MD notification: Latest Vital Signs: Temperature 98.2 , Pulse 65 , B/P 147 /73 , Respiratory Rate 18 , O2 SAT 98 , Nasal Cannula, O2 Flow Rate 2.0 . Vital Sign Comment: Stable EKG Rhythm: Sinus Rhythm Rhythm change?: N MD Notified?: - MD Response: Latest Dominique Fall Score: 35 Fall Risk: Medium Risk Safety Measures: Call light Within Reach, Bed Alarm Zone 1, Side Rails Side Rails x2, Bed position Low and Locked. Fall Precautions: Yellow Socks Yellow Gown Door Sign Patient Fall Education Report given to [place]/TOMI.
--- NOTE | 2020-01-10 19:39 | NUR ---
7NURSE NOTES: Pt. received from TOMI Arellano. Pt. AAOx1 to name, breathing even and unlabored on 2L NC, no indications of SOB, no complaints of pain. IV noted left hand 20g intact and patent. Bed low and locked, side rails x3 up, bed alarm active, and call light in reach.
--- NOTE | 2020-01-10 20:30 | NUR ---
NURSE NOTES: Daughter Sandie ([phone]) at bedside. Daughter not listed on pt.s point of contact, discussed with Sandie to have home health care social worker follow up to discuss power of admitted attorneys and obtain consents. Daughter discussed will return tomorrow 01/10 after work and will be available to call for assistance.
[2020-01-10] MEDS ORDERED: Vancomycin 500mg/D5W 100ml IVPB SCH ×2 (22:00)
[2020-01-11] VITALS: BP 129/69
[2020-01-11] MEDS: Cefepime HCl 500 MG in D5W 55 ML IV SCH (00:09)
[2020-01-11] MEDS ORDERED: Cefepime 1gm in D5W 55ml IVPB ONE (00:15)
[2020-01-11 04:00] VITALS: BP 138/70
[2020-01-11] MEDS: NovoLOG Insulin Flexpen SUBQ SCH ×4 (06:07→21:00)
[2020-01-11] MEDS: HydrALAZINE 50mg tab ORAL SCH ×3 (06:10→17:45)
--- NOTE | 2020-01-11 07:47 | NUR ---
NURSE HAND-OFF REPORT: Important Events on Shift:[]blood sugar 210, insulin given as ordered Patient Status: sleeping Diet: renal Pending Orders: na Pending Results/Labs:na Pending MD notification:na Latest Vital Signs: Temperature 97.2 , Pulse 58 , B/P 138 /70 , Respiratory Rate 18 , O2 SAT 99 , Nasal Cannula, O2 Flow Rate 2.0 . Vital Sign Comment: stable EKG Rhythm: Sinus Bradycardia Rhythm change?: N MD Notified?: - MD Response: Latest Dominique Fall Score: 50 Fall Risk: High Risk Safety Measures: Call light Within Reach, Bed Alarm Zone 1, Side Rails Side Rails x2, Bed position Low and Locked. Fall Precautions: Yellow Socks Yellow Gown Door Sign Patient Fall Education Report given to TOMI Upton.
--- NOTE | 2020-01-11 07:48 | NUR ---
NURSE NOTES: Received patient in bed asleep. O2 via NC in place. IV line intact. With ANABELLA AVF for HD, no bleeding noted. HOB elevated. Bed locked in low position. Call light within reach. Will continue plan of care.
[2020-01-11 08:00] VITALS: BP 137/60
--- NOTE | 2020-01-11 08:19 | Pulmonology Progress Note ---
Subjective ROS Limited/Unobtainable: Yes Allergies: Coded Allergies: No Known Allergies (Unverified , 11/10/12) Subjective care noted reviewed vitals Objective Last 24 Hour Vital Signs Date Time Temp Pulse Resp B/P (MAP) Pulse Ox O2 Delivery O2 Flow Rate FiO2 01/11/20 06:10 138/70 01/11/20 04:00 97.2 58 18 138/70 (92) 99 01/11/20 04:00 58 01/11/20 00:00 97.3 61 18 129/69 (89) 98 01/11/20 00:00 61 01/10/20 23:59 129/69 01/10/20 21:02 64 136/68 01/10/20 20:28 98 Nasal Cannula 2.0 28 01/10/20 20:00 97.5 64 18 136/63 (87) 98 01/10/20 17:05 147/73 01/10/20 17:05 65 147/73 01/10/20 16:00 98.2 65 18 147/73 (97) 98 01/10/20 16:00 65 01/10/20 12:00 98.6 67 15 142/60 (87) 100 01/10/20 12:00 65 01/10/20 12:00 Nasal Cannula 2.0 Nasal Cannula 2.0 Nasal Cannula 2.0 01/10/20 11:36 142/60 01/10/20 11:30 67 14 139/62 (87) 100 01/10/20 11:00 67 14 147/64 (91) 100 01/10/20 10:00 67 18 150/65 (93) 100 01/10/20 09:00 67 18 148/75 (99) 100 01/10/20 08:48 153/63 01/10/20 08:48 68 153/63 01/10/20 08:47 68 153/63 Intake and Output 01/10/20 01/11/20 19:00 07:00 Intake Total 150 ml 335 ml Output Total 0 ml 0 ml Balance 150 ml 335 ml Intake Oral 150 ml 200 ml IV Total 135 ml Output Urine Total 0 ml 0 ml Objective WDWN NAD clear breath sounds bilaterally without rhonchi or wheeze [id number] without MRG NABS nontender no HSM no CCE nonfocal Microbiology Date/Time Source Procedure Growth Status 01/09/20 13:30 Sputum Gram Stain - Final Resulted 01/09/20 13:30 Sputum Culture - Preliminary Gram Negative Bacillus 1 Resulted Laboratory Tests 01/10/20 08:43: POC Whole Blood Glucose [Pending] 01/10/20 10:50: White Blood Count 5.5, Red Blood Count 3.75L, Hemoglobin 11.1L, Hematocrit 37.2, Mean Corpuscular Volume 99, Mean Corpuscular Hemoglobin 29.6, Mean Corpuscular Hemoglobin Concent 29.8L, Red Cell Distribution Width 16.5H, Platelet Count 200, Mean Platelet Volume 8.9, Neutrophils (%) (Auto) 77.4H, Lymphocytes (%) (Auto) 12.4L, Monocytes (%) (Auto) 8.7, Eosinophils (%) (Auto) 0.2, Basophils (%) (Auto) 1.3, Prothrombin Time 11.5, Prothromb Time International Ratio 1.0, Activated Partial Thromboplast Time 31, Sodium Level 134L, Potassium Level 4.3, Chloride Level 98, Carbon Dioxide Level 24, Anion Gap 12, Blood Urea Nitrogen 16, Creatinine 3.5H, Estimat Glomerular Filtration Rate 13.9, Glucose Level 100, Calcium Level 9.4, Random Vancomycin Level 21.1 01/10/20 11:33: POC Whole Blood Glucose [Pending] 01/10/20 16:44: POC Whole Blood Glucose 79 01/10/20 18:00: Sodium Level 135L, Potassium Level 4.9, Chloride Level 98, Carbon Dioxide Level 21, Anion Gap 16H, Blood Urea Nitrogen 20H, Creatinine 4.1H, Estimat Glomerular Filtration Rate 11.6, Glucose Level 78, Calcium Level 8.8, Random Vancomycin Level 17.3 01/10/20 21:21: POC Whole Blood Glucose [Pending] 01/11/20 06:04: POC Whole Blood Glucose 210H Current Medications Medications (Trade) Dose Ordered Sig/Dereje Route PRN Reason Start Time Stop Time Status Last Admin Dose Admin Acetaminophen (Tylenol) 650 mg Q6H PRN ORAL Mild Pain (Pain Scale 1-3) 01/08/20 04:00 02/07/20 03:59 Acetaminophen/ Hydrocodone Bitart ([place] 5/325) 1 tab Q4H PRN ORAL Moderate Pain (Pain Scale 4-6) 01/08/20 04:00 01/15/20 03:59 01/09/20 21:13 Amlodipine Besylate (Norvasc) 10 mg BID ORAL 01/08/20 18:00 02/07/20 17:59 01/10/20 17:05 Cefepime HCl 500 mg/Dextrose 55 ml @ 110 mls/hr Q24H IV 01/08/20 23:00 01/15/20 22:59 01/09/20 23:25 Clonidine HCl (Catapres TTS-3) 2 patch QWEEK TDERMAL 01/08/20 14:00 04/07/20 13:59 01/08/20 14:42 Clonidine HCl (Catapres Tab) 0.1 mg EVERY 6 HOURS PRN ORAL For High Blood Pressure 01/08/20 04:00 04/07/20 03:59 Dextrose (Dextrose 50%) 25 ml Q30M PRN IV Hypoglycemia 01/08/20 04:00 04/07/20 03:59 Dextrose (Dextrose 50%) 50 ml Q30M PRN IV Hypoglycemia 01/08/20 04:00 04/07/20 03:59 01/08/20 17:17 Diphenhydramine HCl (Benadryl) 25 mg Q6H PRN IVP Itching 01/08/20 07:15 02/07/20 07:14 01/10/20 06:20 Gabapentin (Neurontin) 200 mg QHS ORAL 01/08/20 21:00 02/07/20 20:59 01/10/20 21:01 Hydralazine HCl (Apresoline) 20 mg Q6H PRN IV For High Blood Pressure 01/08/20 12:00 04/07/20 03:59 01/09/20 08:41 Hydralazine HCl (Apresoline) 100 mg Q6HR ORAL 01/08/20 12:00 04/07/20 11:59 01/11/20 06:10 Hydrocortisone (Hydrocortisone) 1 applic Q6H PRN TOPIC Itching 01/08/20 09:30 04/07/20 09:29 01/09/20 11:56 Hydromorphone HCl (Dilaudid) 1.5 mg EVERY 3 HOURS PRN IVP Severe Pain (Pain Scale 7-10) 01/09/20 01:15 01/16/20 01:14 01/10/20 17:07 Insulin Aspart (NovoLOG) BEFORE MEALS AND HS SUBQ 01/08/20 06:30 04/07/20 06:29 01/11/20 06:07 Insulin Detemir (Levemir) 10 units Q12HR SUBQ 01/08/20 09:00 04/07/20 08:59 01/08/20 09:32 Lisinopril (PriniviL) 40 mg DAILY ORAL 01/08/20 12:00 02/07/20 11:59 01/10/20 08:48 Metoclopramide HCl (Reglan) 5 mg Q8H PRN IVP Nausea & Vomiting 01/09/20 09:15 02/08/20 09:14 01/09/20 19:45 Metoprolol Tartrate (Lopressor) 25 mg Q12HR ORAL 01/08/20 12:00 04/07/20 11:59 01/10/20 21:02 Ondansetron HCl (Zofran) 6 mg EVERY 6 HOURS PRN IVP Nausea & Vomiting 01/09/20 01:15 02/08/20 01:14 01/09/20 03:35 Pantoprazole (Protonix) 40 mg EVERY 12 HOURS IVP 01/09/20 09:00 02/08/20 08:59 01/10/20 21:01 Vancomycin HCl (Vanco pharmacy to dose) 1 ea DAILY PRN MISC Per rx protocol 01/08/20 04:00 02/07/20 03:59 Assessment/Plan Assessment/Plan Impression: Hypertensive urgency ESRD on dialysis, right hydronephrosis - had previous nephrostomy Pneumonia Right Pleural effusion Congestive heart failure Hypoxia Abdominal pain Hyperglycemia Long QT interval Diabetes Pneumonia Plan: Antihypertensive IV Antibiotics O2 PRN Renal noted HD ID followup Cardiology consult Thoracentesis if able to get consent Monitor labs impression, plan, and exam edited and reviewed in detail care discussed with Vitor Salazar MD Jan 11, 2020 08:19
[2020-01-11] MEDS: Lisinopril 20mg tab ORAL SCH ×2 (09:00→09:21)
[2020-01-11] MEDS: Levemir Flexpen SUBQ SCH ×3 (09:00→21:00)
[2020-01-11] MEDS: Pantoprazole Inj IVP SCH ×2 (09:20→21:00)
--- NOTE | 2020-01-11 09:30 | General Progress Note ---
Subjective ROS Limited/Unobtainable: No Allergies: Coded Allergies: No Known Allergies (Unverified , 11/10/12) Objective Last 24 Hour Vital Signs Date Time Temp Pulse Resp B/P (MAP) Pulse Ox O2 Delivery O2 Flow Rate FiO2 01/11/20 09:21 137/60 01/11/20 09:20 56 137/60 01/11/20 08:00 96.4 56 19 137/60 (85) 100 01/11/20 06:10 138/70 01/11/20 04:00 97.2 58 18 138/70 (92) 99 01/11/20 04:00 58 01/11/20 00:00 97.3 61 18 129/69 (89) 98 01/11/20 00:00 61 01/10/20 23:59 129/69 01/10/20 21:02 64 136/68 01/10/20 20:28 98 Nasal Cannula 2.0 28 01/10/20 20:00 97.5 64 18 136/63 (87) 98 01/10/20 17:05 147/73 01/10/20 17:05 65 147/73 01/10/20 16:00 98.2 65 18 147/73 (97) 98 01/10/20 16:00 65 01/10/20 12:00 98.6 67 15 142/60 (87) 100 01/10/20 12:00 65 01/10/20 12:00 Nasal Cannula 2.0 Nasal Cannula 2.0 Nasal Cannula 2.0 01/10/20 11:36 142/60 01/10/20 11:30 67 14 139/62 (87) 100 01/10/20 11:00 67 14 147/64 (91) 100 01/10/20 10:00 67 18 150/65 (93) 100 Intake and Output 0 01/10/20 01/11/20 19:00 07:00 Intake Total 150 ml 335 ml Output Total 0 ml 0 ml Balance 150 ml 335 ml Intake Oral 150 ml 200 ml IV Total 135 ml Output Urine Total 0 ml 0 ml Laboratory Tests 01/10/20 10:50: White Blood Count 5.5, Red Blood Count 3.75L, Hemoglobin 11.1L, Hematocrit 37.2, Mean Corpuscular Volume 99, Mean Corpuscular Hemoglobin 29.6, Mean Corpuscular Hemoglobin Concent 29.8L, Red Cell Distribution Width 16.5H, Platelet Count 200, Mean Platelet Volume 8.9, Neutrophils (%) (Auto) 77.4H, Lymphocytes (%) (Auto) 12.4L, Monocytes (%) (Auto) 8.7, Eosinophils (%) (Auto) 0.2, Basophils (%) (Auto) 1.3, Prothrombin Time 11.5, Prothromb Time International Ratio 1.0, Activated Partial Thromboplast Time 31, Sodium Level 134L, Potassium Level 4.3, Chloride Level 98, Carbon Dioxide Level 24, Anion Gap 12, Blood Urea Nitrogen 16, Creatinine 3.5H, Estimat Glomerular Filtration Rate 13.9, Glucose Level 100, Calcium Level 9.4, Random Vancomycin Level 21.1 01/10/20 11:33: POC Whole Blood Glucose [Pending] 01/10/20 16:44: POC Whole Blood Glucose 79 01/10/20 18:00: Sodium Level 135L, Potassium Level 4.9, Chloride Level 98, Carbon Dioxide Level 21, Anion Gap 16H, Blood Urea Nitrogen 20H, Creatinine 4.1H, Estimat Glomerular Filtration Rate 11.6, Glucose Level 78, Calcium Level 8.8, Random Vancomycin Level 17.3 01/10/20 21:21: POC Whole Blood Glucose [Pending] 01/11/20 06:04: POC Whole Blood Glucose 210H Height (Feet): 5 Weight (Pounds): 130 General Appearance: no apparent distress EENT: normal ENT inspection Neck: supple Cardiovascular: normal rate Respiratory/Chest: decreased breath sounds Abdomen: normal bowel sounds, non tender, soft Extremities: non-tender Assessment/Plan Assessment/Plan: htn ESRD anemia n/v DM large right sided pleural effusion hydronephrosis reglan tight BS control ppi fu labs HD per nephrology pending thoracentesis calorie count speech Mark Olivarez MD Jan 11, 2020 09:30
--- NOTE | 2020-01-11 11:08 | NUR ---
Speech Pathology Note (Bedside Dysphagia Evaluation) Brief note: On 01/07/2020~01/08/2020, Ms. Sarmiento is a 49 year old female admitted for hypertensive emergency 241/111 and large right pleural effusion that required her to have ICU medical management and procedural intervention. The BP was managed and out to tele, currently awaiting for consent for VATS. Her labs and hemodynamic are stable. CT chest imaging reviewed. The trachea is pushed/pulled to left against pleural effusion, possible compression of esophagus may result dysphagia. The part of right lower lobe was concerning for chronic aspiration. PMH: ESRD, HD Mon/Fri/Fri, DM, HTN, CHF, right hydronephrosis, Findings: Ms. Sarmiento was able to arouse. She is oriented to self place and month. She follows commands. Oral exam revealed xerostomia and erythema of mucosa. The teeth is grossly intact. Her cough and voice is intact. Given her thin liquid, she tolerated well without overt s.s of aspiration. Given her oat meal, she dislike the flavor and spitted out. She kindly declined further PO trial stating " Not hungry" in Nepali. Interpretation: 1. Grossly functional oropharyngeal swallow and laryngeal function 2. Possible esophageal dysphagia with large right pleural effusion with compression. 3. Possible chronic micro aspiration 4. Poor PO intake Plan: 1. Continue with regular diet now. -follow up with calorie count result, aspiration precaution and diet texture appropriateness Devan Burton
--- NOTE | 2020-01-11 11:47 | Infectious Diseases Prog Note ---
Assessment/Plan Assessment/Plan antibiotics : vancomycin iv, cefepime A 1. e.coli Pneumonia. 2. Diabetes. 3. Hypertension. 4. Renal failure on dialysis. P 1. d/c iv vancomycin, cefepime 2. start zosyn 3. will follow up cultures Subjective ROS Limited/Unobtainable: Yes Allergies: Coded Allergies: No Known Allergies (Unverified , 11/10/12) Objective Last 24 Hour Vital Signs Date Time Temp Pulse Resp B/P (MAP) Pulse Ox O2 Delivery O2 Flow Rate FiO2 01/11/20 08:00 96.4 56 19 137/60 (85) 100 01/11/20 06:10 138/70 01/11/20 04:00 97.2 58 18 138/70 (92) 99 01/11/20 04:00 58 01/11/20 00:00 97.3 61 18 129/69 (89) 98 01/11/20 00:00 61 01/10/20 23:59 129/69 01/10/20 21:02 64 136/68 01/10/20 20:28 98 Nasal Cannula 2.0 28 01/10/20 20:00 97.5 64 18 136/63 (87) 98 01/10/20 17:05 147/73 01/10/20 17:05 65 147/73 01/10/20 16:00 98.2 65 18 147/73 (97) 98 01/10/20 16:00 65 01/10/20 12:00 98.6 67 15 142/60 (87) 100 01/10/20 12:00 65 01/10/20 12:00 Nasal Cannula 2.0 Nasal Cannula 2.0 Nasal Cannula 2.0 Height (Feet): 5 Weight (Pounds): 130 Respiratory/Chest: lungs clear Cardiovascular: normal rate, regular rhythm, no gallop/murmur Abdomen: soft, non tender Extremities: no edema Microbiology Date/Time Source Procedure Growth Status 01/09/20 13:30 Sputum Gram Stain - Final Resulted 01/09/20 13:30 Sputum Culture - Preliminary Escherichia Coli Usual Respiratory Maryse Resulted Laboratory Tests Test 01/10/20 16:44 01/10/20 18:00 01/10/20 21:21 01/11/20 06:04 POC Whole Blood Glucose 79 MG/DL (74-106) Pending 210 MG/DL (74-106) H Sodium Level 135 MMOL/L (136-145) L Potassium Level 4.9 MMOL/L (3.5-5.1) Chloride Level 98 MMOL/L (98-107) Carbon Dioxide Level 21 MMOL/L (21-32) Anion Gap 16 mmol/L (5-15) H Blood Urea Nitrogen 20 mg/dL (7-18) H Creatinine 4.1 MG/DL (0.55-1.30) H Estimat Glomerular Filtration Rate 11.6 mL/min (>60) Glucose Level 78 MG/DL (74-106) Calcium Level 8.8 MG/DL (8.5-10.1) Random Vancomycin Level 17.3 ug/mL Current Medications Medications (Trade) Dose Ordered Sig/Dereje Route PRN Reason Start Time Stop Time Status Last Admin Dose Admin Acetaminophen (Tylenol) 650 mg Q6H PRN ORAL Mild Pain (Pain Scale 1-3) 01/08/20 04:00 02/07/20 03:59 Acetaminophen/ Hydrocodone Bitart ([place] 5/325) 1 tab Q4H PRN ORAL Moderate Pain (Pain Scale 4-6) 01/08/20 04:00 01/15/20 03:59 01/09/20 21:13 Amlodipine Besylate (Norvasc) 10 mg BID ORAL 01/08/20 18:00 02/07/20 17:59 01/10/20 17:05 Cefepime HCl 500 mg/Dextrose 55 ml @ 110 mls/hr Q24H IV 01/08/20 23:00 01/15/20 22:59 01/09/20 23:25 Clonidine HCl (Catapres TTS-3) 2 patch QWEEK TDERMAL 01/08/20 14:00 04/07/20 13:59 01/08/20 14:42 Clonidine HCl (Catapres Tab) 0.1 mg EVERY 6 HOURS PRN ORAL For High Blood Pressure 01/08/20 04:00 04/07/20 03:59 Dextrose (Dextrose 50%) 25 ml Q30M PRN IV Hypoglycemia 01/08/20 04:00 04/07/20 03:59 Dextrose (Dextrose 50%) 50 ml Q30M PRN IV Hypoglycemia 01/08/20 04:00 04/07/20 03:59 11/14/20 17:17 Diphenhydramine HCl (Benadryl) 25 mg Q6H PRN IVP Itching 01/08/20 07:15 02/07/20 07:14 01/10/20 06:20 Gabapentin (Neurontin) 200 mg QHS ORAL 01/08/20 21:00 02/07/20 20:59 01/10/20 21:01 Hydralazine HCl (Apresoline) 20 mg Q6H PRN IV For High Blood Pressure 01/08/20 12:00 04/07/20 03:59 01/09/20 08:41 Hydralazine HCl (Apresoline) 100 mg Q6HR ORAL 01/08/20 12:00 04/07/20 11:59 01/11/20 06:10 Hydrocortisone (Hydrocortisone) 1 applic Q6H PRN TOPIC Itching 01/08/20 09:30 04/07/20 09:29 01/09/20 11:56 Hydromorphone HCl (Dilaudid) 1.5 mg EVERY 3 HOURS PRN IVP Severe Pain (Pain Scale 7-10) 01/09/20 01:15 01/16/20 01:14 01/10/20 17:07 Insulin Aspart (NovoLOG) BEFORE MEALS AND HS SUBQ 01/08/20 06:30 04/07/20 06:29 01/11/20 06:07 Insulin Detemir (Levemir) 10 units Q12HR SUBQ 01/08/20 09:00 04/07/20 08:59 01/08/20 09:32 Lisinopril (PriniviL) 40 mg DAILY ORAL 01/08/20 12:00 02/07/20 11:59 01/10/20 08:48 Metoclopramide HCl (Reglan) 5 mg Q8H PRN IVP Nausea & Vomiting 01/09/20 09:15 02/08/20 09:14 01/09/20 19:45 Metoprolol Tartrate (Lopressor) 25 mg Q12HR ORAL 01/08/20 12:00 04/07/20 11:59 01/10/20 21:02 Ondansetron HCl (Zofran) 6 mg EVERY 6 HOURS PRN IVP Nausea & Vomiting 01/09/20 01:15 02/08/20 01:14 01/09/20 03:35 Pantoprazole (Protonix) 40 mg EVERY 12 HOURS IVP 01/09/20 09:00 02/08/20 08:59 01/11/20 09:20 Vancomycin HCl ([facility] pharmacy to dose) 1 ea DAILY PRN MISC Per rx protocol 01/08/20 04:00 02/07/20 03:59 Aurelia Cloud MD Jan 11, 2020 11:47
[2020-01-11 12:00] VITALS: BP 127/80
[2020-01-11] MEDS ORDERED: Varibar Honey 250ml MC PRN (13:00)
[2020-01-11] MEDS ORDERED: Varibar Pudding 230ml MC PRN (13:00)
[2020-01-11] MEDS ORDERED: Varibar Nectar 240ml MC PRN (13:00)
[2020-01-11] MEDS ORDERED: Varibar Thin Liquid powder 148gm MC PRN (13:00)
--- NOTE | 2020-01-11 13:49 | NUR ---
NURSE NOTES: Speech eval ordered earlier today, noted and carried out. Diet downgraded to pureed. Dr Quick aware that patient is confused and still has no consent for thoracentesis, daughter Sandie's number given to Dr Quick. Patient refusing medications and insulin.
[2020-01-11] MEDS: Piperacillin/Tazobactam 2.25 GM in D5W 55 ML IV SCH ×2 (14:01→22:22)
--- NOTE | 2020-01-11 15:10 | Surgery Progress Note ---
Surgery Progress Note Subjective Symptoms: improved, tolerating diet, passing flatus Objective Last 24 Hour Vital Signs Date Time Temp Pulse Resp B/P (MAP) Pulse Ox O2 Delivery O2 Flow Rate FiO2 01/11/20 12:00 127/80 01/11/20 12:00 97.8 80 19 127/80 (96) 96 01/11/20 12:00 54 01/11/20 08:00 56 01/11/20 08:00 96.4 56 19 137/60 (85) 100 01/11/20 08:00 Nasal Cannula 2.0 Nasal Cannula 2.0 Nasal Cannula 2.0 01/11/20 06:10 138/70 01/11/20 04:00 97.2 58 18 138/70 (92) 99 01/11/20 04:00 58 01/11/20 00:00 97.3 61 18 129/69 (89) 98 01/11/20 00:00 61 01/10/20 23:59 129/69 01/10/20 21:02 64 136/68 01/10/20 20:28 98 Nasal Cannula 2.0 28 01/10/20 20:00 97.5 64 18 136/63 (87) 98 01/10/20 17:05 147/73 01/10/20 17:05 65 147/73 01/10/20 16:00 98.2 65 18 147/73 (97) 98 01/10/20 16:00 65 I&O Intake and Output 01/10/20 01/11/20 19:00 07:00 Intake Total 150 ml 335 ml Output Total 0 ml 0 ml Balance 150 ml 335 ml Intake Oral 150 ml 200 ml IV Total 135 ml Output Urine Total 0 ml 0 ml Dressing: saturated Cardiovascular: RSR Respiratory: decreased breath sounds Abdomen: soft, non-tender, present bowel sounds, non-distended Extremities: no edema, no tenderness, no cyanosis Laboratory Tests Test 01/10/20 16:44 01/10/20 18:00 01/10/20 21:21 01/11/20 06:04 POC Whole Blood Glucose 79 MG/DL (74-106) Pending 210 MG/DL (74-106) H Sodium Level 135 MMOL/L (136-145) L Potassium Level 4.9 MMOL/L (3.5-5.1) Chloride Level 98 MMOL/L (98-107) Carbon Dioxide Level 21 MMOL/L (21-32) Anion Gap 16 mmol/L (5-15) H Blood Urea Nitrogen 20 mg/dL (7-18) H Creatinine 4.1 MG/DL (0.55-1.30) H Estimat Glomerular Filtration Rate 11.6 mL/min (>60) Glucose Level 78 MG/DL (74-106) Calcium Level 8.8 MG/DL (8.5-10.1) Random Vancomycin Level 17.3 ug/mL Test 01/11/20 12:07 POC Whole Blood Glucose 138 MG/DL (74-106) H Plan Problems: (1) Heel ulcer Assessment & Plan: identified to have heel ulcer on R upon admission. unstageable ulcer with small necrotic eschar. cover with optifoam and elevate heel left side with TMA (2) Hyperglycemia (3) CHF (congestive heart failure) (4) Long QT interval (5) Shortness of breath (6) Pleural effusion (7) Hypoxia (8) Pneumonia (9) Abdominal pain Assessment & Plan: 49F abd pain with HD. had after HD recently and acute worsening. came in for eval admitted for care and feels better now no n/v/f/c pain resolved but believes will occur after HD CT reviewed may need outpatient CTA or angio okay for diet currently abd exam benign ABDOMEN: Liver: Unremarkable. No mass. Gallbladder and bile ducts: Unremarkable. No calcified stones. No ductal dilation. Pancreas: Unremarkable. No mass. No ductal dilation. Spleen: Unremarkable. No splenomegaly. Adrenals: Unremarkable. No mass. Kidneys and ureters: Atrophy of the left kidney. Severe right hydronephrosis. No obvious obstructing stone or mass. Stomach and bowel: Unremarkable. No obstruction. No mucosal thickening. PELVIS: Appendix: No findings to suggest acute appendicitis. Bladder: Unremarkable. No mass. Reproductive: Unremarkable as visualized. ABDOMEN and PELVIS: Intraperitoneal space: Moderate abdominal and pelvic free fluid. No free air. Bones/joints: No acute fracture. No dislocation. Soft tissues: Unremarkable. Vasculature: Diffuse atherosclerotic vascular disease. No abdominal aortic aneurysm. Lymph nodes: Unremarkable. No enlarged lymph nodes. IMPRESSION: 1. Severe right hydronephrosis. No obvious obstructing stone or mass. 2. Moderate peritoneal and pelvic free fluid. 3. Prominent atherosclerotic vascular disease. Right deep veins: No DVT in the right internal jugular, subclavian, axillary, or brachial veins. The veins demonstrate normal color flow, are normally compressible, with normal phasic flow and/or augmentation response. Right superficial veins: No thrombus in the visualized right basilic and cephalic veins. ----- Left deep veins: No DVT in the left internal jugular, subclavian, axillary, or brachial veins. The veins demonstrate normal color flow, are normally compressible, with normal phasic flow and/or augmentation response. Left superficial veins: No thrombus in the visualized left basilic and cephalic veins. IMPRESSION: No deep venous thrombosis within the bilateral lower extremities. Ms. Sarmiento is a 49 year old female admitted for hypertensive emergency 241/111 and large right pleural effusion that required her to have ICU medical management and procedural intervention. The BP was managed and out to tele, currently awaiting for consent for VATS. Her labs and hemodynamic are stable. CT chest imaging reviewed. The trachea is pushed/pulled to left against pleural effusion, possible compression of esophagus may result dysphagia. The part of right lower lobe was concerning for chronic aspiration. PMH: ESRD, HD Mon/Fri/Fri, DM, HTN, CHF, right hydronephrosis, Findings: Ms. Sarmiento was able to arouse. She is oriented to self place and month. She follows commands. Oral exam revealed xerostomia and erythema of mucosa. The teeth is grossly intact. Her cough and voice is intact. Given her thin liquid, she tolerated well without overt s.s of aspiration. Given her oat meal, she dislike the flavor and spitted out. She kindly declined further PO trial stating " Not hungry" in Armenian. Interpretation: 1. Grossly functional oropharyngeal swallow and laryngeal function 2. Possible esophageal dysphagia with large right pleural effusion with compression. 3. Possible chronic micro aspiration 4. Poor PO intake Plan: 1. Continue with regular diet now. -follow up with calorie count result, aspiration precaution and diet texture appropriateness (10) ESRD (end stage renal disease) on dialysis (11) Hypertensive emergency (12) Acute lower urinary tract infection (13) Dehydration Sergio Lara Jan 11, 2020 15:10
[2020-01-11 16:00] VITALS: BP 128/71
--- NOTE | 2020-01-11 16:14 | Nephrology Progress Note ---
Assessment/Plan Problem List: (1) ESRD (end stage renal disease) on dialysis (2) Abdominal pain (3) CHF (congestive heart failure) (4) Gastritis (5) Malignant hypertension (arteriolar nephrosclerosis) (6) Metabolic encephalopathy (7) Pneumonia Plan avoid tramadol in eskd, minimize opiates, reglan can also cause encephalopathy, serial HD, titrate bp meds, GI eval ongoing, refused po meds today Subjective Constitutional: Reports: weakness HEENT: Reports: other - blind Genitourinary: Reports: no symptoms Neurologic/Psychiatric: Reports: no symptoms Objective Objective Last 24 Hour Vital Signs Date Time Temp Pulse Resp B/P (MAP) Pulse Ox O2 Delivery O2 Flow Rate FiO2 01/11/20 12:00 127/80 01/11/20 12:00 97.8 80 19 127/80 (96) 96 01/11/20 12:00 54 01/11/20 08:00 56 01/11/20 08:00 96.4 56 19 137/60 (85) 100 01/11/20 08:00 Nasal Cannula 2.0 Nasal Cannula 2.0 Nasal Cannula 2.0 01/11/20 06:10 138/70 01/11/20 04:00 97.2 58 18 138/70 (92) 99 01/11/20 04:00 58 01/11/20 00:00 97.3 61 18 129/69 (89) 98 01/11/20 00:00 61 01/10/20 23:59 129/69 01/10/20 21:02 64 136/68 01/10/20 20:28 98 Nasal Cannula 2.0 28 01/10/20 20:00 97.5 64 18 136/63 (87) 98 01/10/20 17:05 147/73 01/10/20 17:05 65 147/73 Intake and Output 01/10/20 01/11/20 19:00 07:00 Intake Total 150 ml 335 ml Output Total 0 ml 0 ml Balance 150 ml 335 ml Intake Oral 150 ml 200 ml IV Total 135 ml Output Urine Total 0 ml 0 ml Laboratory Tests 01/10/20 16:44: POC Whole Blood Glucose 79 01/10/20 18:00: Sodium Level 135L, Potassium Level 4.9, Chloride Level 98, Carbon Dioxide Level 21, Anion Gap 16H, Blood Urea Nitrogen 20H, Creatinine 4.1H, Estimat Glomerular Filtration Rate 11.6, Glucose Level 78, Calcium Level 8.8, Random Vancomycin Level 17.3 01/10/20 21:21: POC Whole Blood Glucose [Pending] 01/11/20 06:04: POC Whole Blood Glucose 210H 01/11/20 12:07: POC Whole Blood Glucose 138H Height (Feet): 5 Weight (Pounds): 130 General Appearance: lethargic, confused EENT: other - blind Neck: normal alignment Cardiovascular: regular rhythm Respiratory/Chest: lungs clear Extremities: no edema 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
--- NOTE | 2020-01-11 17:21 | NUR ---
INSURANCE FAXED CLINICALS TO [facility] /[facility] [phone] FX PH [phone] PH [phone]
--- NOTE | 2020-01-11 18:02 | NUR ---
CASE MANAGEMENT: REVIEW SI: ESRD on HD . HTN . DEHYDRATION . PNA T 96.4 HR 56 RR 19 BP 137/60 SAT 100% NC/2L GLUCOSE 147 IS: ZOSYN IV Q8HR CEFEPIME IV Q24HR HD PER RENAL ST BEDSIDE SWALLOW EVAL TELEMETRY UNIT STATUS DCP: PATIENT IS FROM HOME
--- NOTE | 2020-01-11 19:46 | NUR ---
NURSE HAND-OFF REPORT: Important Events on Shift:consent for thoracentesis secured Patient Status: drowsy, non-compliant with medication Diet: renal pureed Pending Orders: thoracentesis; for HD tomorrow, PILO Doran RN aware Pending Results/Labs: Pending MD notification: Latest Vital Signs: Temperature 96.8 , Pulse 54 , B/P 128 /71 , Respiratory Rate 19 , O2 SAT 99 , Nasal Cannula, O2 Flow Rate 2.0 . Vital Sign Comment: EKG Rhythm: Sinus Bradycardia Rhythm change?: N Notified?: Y -dr brenda QUIGLEY Response: Latest Dominique Fall Score: 50 Fall Risk: High Risk Safety Measures: Call light Within Reach, Bed Alarm Zone 1, Side Rails Side Rails x2, Bed position Low and Locked. Fall Precautions: Yellow Socks Yellow Gown Door Sign Patient Fall Education Report given to Jett KRISHNA.
--- NOTE | 2020-01-11 19:47 | NUR ---
NURSE NOTES: Pt received from TOMI Upton. Pt is sleeping comfortably in bed and shows no signs of pain. Pt is A/Ox1 bulgarian speaking and on bedrest; pt is orient to abilities and non-ambulatory. Pt is anuric ESRD and has had no BM since admission. Pt is receiving PO medications and food poorly; prefers meds crushed in jello. Pt has cardiac monitoring SR and asymptomatic. Pt is on NC 2LPM and asymptomatic; denies sob. Pt has LFA 20G SL patent with site dry and intact. Bed is locked in lowest position with call light within reach. Will continue to monitor.
[2020-01-11 20:00] VITALS: BP 166/70
[2020-01-12] VITALS: BP 149/63
[2020-01-12 04:00] VITALS: BP 163/68
[2020-01-12] MEDS ORDERED: Heparin Sod 1000 units/ml 10ml IV PRN (06:00)
[2020-01-12] MEDS: HydrALAZINE 50mg tab ORAL SCH ×4 (06:15→18:03)
[2020-01-12] MEDS: Piperacillin/Tazobactam 2.25 GM in D5W 55 ML IV SCH ×3 (06:15→22:31)
[2020-01-12] MEDS: NovoLOG Insulin Flexpen SUBQ SCH ×4 (06:16→21:00)
--- NOTE | 2020-01-12 06:57 | NUR ---
NURSE HAND-OFF REPORT: Important Events on Shift:Pt prepared for Thoracentesis Patient Status: Stable Diet: Renal Puree Diet Pending Orders: Pending Results/Labs:AM Labs Pending notification: Latest Vital Signs: Temperature 97.7 , Pulse 56 , B/P 163 /68 , Respiratory Rate 14 , O2 SAT 98 , Nasal Cannula, O2 Flow Rate 2.0 . Vital Sign Comment: VSS EKG Rhythm: Sinus Bradycardia Rhythm change?: N MD Notified?: N -dr brenda QUIGLEY Response: Latest Dominique Fall Score: 50 Fall Risk: High Risk Safety Measures: Call light Within Reach, Bed Alarm Zone 1, Side Rails Side Rails x2, Bed position Low and Locked. Fall Precautions: Yellow Socks Yellow Gown Door Sign Patient Fall Education Report given to TOMI Salguero.
--- NOTE | 2020-01-12 07:39 | NUR ---
NURSE NOTES: Patient was seen in bed stable and was asleep. The bed was set to lowest position, bed alarm was set to zone1, bed locked and side rails were placed x3.
[2020-01-12 07:45] LABS: EOSINOPHILS % (AUTO) 0.9 % (0.0-3.0); HEMATOCRIT 35.9 % (37.0-47.0); HEMOGLOBIN 10.8 G/DL (12.0-16.0); LYMPHOCYTES % (AUTO) 13.3 % (20.0-45.0); MEAN CORPUSCULAR VOLUME 97 FL (80-99); MONOCYTES % (AUTO) 8.5 % (1.0-10.0); NEUTROPHILS % (AUTO) 76.3 % (45.0-75.0); PLATELET COUNT 213 K/UL (150-450); RED CELL DISTRIBUTION WIDTH 15.5 % (11.6-14.8); WHITE BLOOD COUNT 5.4 K/UL (4.8-10.8)
--- NOTE | 2020-01-12 07:45 | General Progress Note ---
Subjective ROS Limited/Unobtainable: No Allergies: Coded Allergies: No Known Allergies (Unverified , 11/10/12) Objective Last 24 Hour Vital Signs Date Time Temp Pulse Resp B/P (MAP) Pulse Ox O2 Delivery O2 Flow Rate FiO2 01/12/20 06:15 163/68 01/12/20 04:00 97.7 56 14 163/68 (99) 98 01/12/20 04:00 56 01/12/20 00:00 55 01/12/20 00:00 139/44 01/12/20 00:00 97.9 54 14 149/63 (91) 97 01/11/20 21:00 53 166/70 01/11/20 20:00 97.5 53 14 166/70 (102) 98 01/11/20 19:52 99 Nasal Cannula 2.0 28 01/11/20 17:45 128/71 01/11/20 16:00 96.8 77 19 128/71 (90) 97 01/11/20 16:00 54 01/11/20 12:00 127/80 01/11/20 12:00 97.8 80 19 127/80 (96) 96 01/11/20 12:00 54 01/11/20 08:00 56 01/11/20 08:00 96.4 56 19 137/60 (85) 100 01/11/20 08:00 Nasal Cannula 2.0 Nasal Cannula 2.0 Nasal Cannula 2.0 Intake and Output 01/11/20 01/12/20 19:00 07:00 Intake Total 120 ml 600 ml Balance 120 ml 600 ml Intake Oral 120 ml 600 ml # Voids 3 Laboratory Tests 01/11/20 12:07: POC Whole Blood Glucose 138H 01/11/20 16:49: POC Whole Blood Glucose 147H 01/12/20 05:43: POC Whole Blood Glucose 193H 01/12/20 07:17: White Blood Count [Pending], Red Blood Count [Pending], Hemoglobin [Pending], Hematocrit [Pending], Mean Corpuscular Volume [Pending], Mean Corpuscular Hemoglobin [Pending], Mean Corpuscular Hemoglobin Concent [Pending], Red Cell Distribution Width [Pending], Platelet Count [Pending], Mean Platelet Volume [Pending], Neutrophils (%) (Auto) [Pending], Lymphocytes (%) (Auto) [Pending], Monocytes (%) (Auto) [Pending], Eosinophils (%) (Auto) [Pending], Basophils (%) (Auto) [Pending], Sodium Level [Pending], Potassium Level [Pending], Chloride Level [Pending], Carbon Dioxide Level [Pending], Blood Urea Nitrogen [Pending], Creatinine [Pending], Estimat Glomerular Filtration Rate [Pending], Glucose Level [Pending], Calcium Level [Pending] Height (Feet): 5 Weight (Pounds): 130 General Appearance: lethargic EENT: normal ENT inspection Neck: normal alignment Cardiovascular: normal rate Respiratory/Chest: decreased breath sounds Abdomen: hypoactive bowel sounds Extremities: non-tender Assessment/Plan Assessment/Plan: htn ESRD anemia n/v DM large right sided pleural effusion hydronephrosis reglan tight BS control ppi fu labs HD per nephrology add marinol add bowel egimen repeat labs calorie count Mark Sy MD Jan 12, 2020 07:45
[2020-01-12 08:00] VITALS: BP 139/63
[2020-01-12 08:18] LABS: POTASSIUM 4.7 MMOL/L (3.5-5.1)
[2020-01-12] MEDS: Lisinopril 20mg tab ORAL SCH (09:00)
[2020-01-12] MEDS: Docusate 100mg cap ORAL SCH ×2 (09:00→18:00)
[2020-01-12] MEDS: Levemir Flexpen SUBQ SCH ×2 (09:00→21:00)
[2020-01-12] MEDS: Pantoprazole Inj IVP SCH (09:17)
[2020-01-12] MEDS: Dronabinol 2.5mg Cap ORAL SCH ×2 (09:17→18:03)
--- NOTE | 2020-01-12 09:25 | Pulmonology Progress Note ---
Subjective ROS Limited/Unobtainable: No Allergies: Coded Allergies: No Known Allergies (Unverified , 11/10/12) Subjective care noted no distress Objective Last 24 Hour Vital Signs Date Time Temp Pulse Resp B/P (MAP) Pulse Ox O2 Delivery O2 Flow Rate FiO2 01/12/20 09:18 60 139/63 01/12/20 06:15 163/68 01/12/20 04:00 97.7 56 14 163/68 (99) 98 01/12/20 04:00 56 01/12/20 00:00 55 01/12/20 00:00 139/44 01/12/20 00:00 97.9 54 14 149/63 (91) 97 01/11/20 21:00 53 166/70 01/11/20 20:00 97.5 53 14 166/70 (102) 98 01/11/20 19:52 99 Nasal Cannula 2.0 28 01/11/20 17:45 128/71 01/11/20 16:00 96.8 77 19 128/71 (90) 97 01/11/20 16:00 54 01/11/20 12:00 127/80 01/11/20 12:00 97.8 80 19 127/80 (96) 96 01/11/20 12:00 54 Intake and Output 01/11/20 01/12/20 19:00 07:00 Intake Total 120 ml 600 ml Balance 120 ml 600 ml Intake Oral 120 ml 600 ml # Voids 3 Objective WDWN NAD clear breath sounds bilaterally without rhonchi or wheeze [id number] without MRG NABS nontender no HSM no CCE nonfocal Microbiology Date/Time Source Procedure Growth Status 01/09/20 13:30 Sputum Gram Stain - Final Resulted 01/09/20 13:30 Sputum Culture - Preliminary Escherichia Coli - Esbl Usual Respiratory Maryse Resulted Laboratory Tests 01/11/20 12:07: POC Whole Blood Glucose 138H 01/11/20 16:49: POC Whole Blood Glucose 147H 01/12/20 05:43: POC Whole Blood Glucose 193H 01/12/20 07:17: White Blood Count 5.4, Red Blood Count 3.70L, Hemoglobin 10.8L, Hematocrit 35.9L , Mean Corpuscular Volume 97, Mean Corpuscular Hemoglobin 29.3, Mean Corpuscular Hemoglobin Concent 30.2L, Red Cell Distribution Width 15.5H, Platelet Count 213, Mean Platelet Volume 8.6, Neutrophils (%) (Auto) 76.3H, Lymphocytes (%) (Auto) 13.3L, Monocytes (%) (Auto) 8.5, Eosinophils (%) (Auto) 0.9, Basophils (%) (Auto) 1.0, Sodium Level 133L, Potassium Level 4.7, Chloride Level 97L, Carbon Dioxide Level 25, Anion Gap 12, Blood Urea Nitrogen 45H, Creatinine 7.0H, Estimat Glomerular Filtration Rate 6.2, Glucose Level 176H, Calcium Level 8.0L Current Medications Medications (Trade) Dose Ordered Sig/Dereje Route PRN Reason Start Time Stop Time Status Last Admin Dose Admin Acetaminophen (Tylenol) 650 mg Q6H PRN ORAL Mild Pain (Pain Scale 1-3) 01/08/20 04:00 02/07/20 03:59 Acetaminophen/ Hydrocodone Bitart ([employer] 5/325) 1 tab Q4H PRN ORAL Moderate Pain (Pain Scale 4-6) 01/08/20 04:00 01/15/20 03:59 01/09/20 21:13 Amlodipine Besylate (Norvasc) 10 mg BID ORAL 01/08/20 18:00 02/07/20 17:59 01/10/20 17:05 Barium Sulfate (Varibar Honey) 250 ml NOW PRN MC RAD 01/11/20 13:00 01/14/20 12:47 Barium Sulfate (Varibar [place]) 240 ml NOW PRN MC RAD 01/11/20 13:00 01/14/20 12:47 Barium Sulfate (Varibar Pudding) 230 ml NOW PRN MC RAD 01/11/20 13:00 01/14/20 12:47 Barium Sulfate (Varibar Thin Liquid powder) 148 gm NOW PRN MC RAD 01/11/20 13:00 01/14/20 12:47 Bisacodyl (Dulcolax) 10 mg ONCE RECTAL 01/12/20 08:30 01/12/20 10:00 01/12/20 09:18 Clonidine HCl (Catapres TTS-3) 2 patch QWEEK TDERMAL 01/08/20 14:00 04/07/20 13:59 01/08/20 14:42 Clonidine HCl (Catapres Tab) 0.1 mg EVERY 6 HOURS PRN ORAL For High Blood Pressure 01/08/20 04:00 04/07/20 03:59 Dextrose (Dextrose 50%) 25 ml Q30M PRN IV Hypoglycemia 01/08/20 04:00 04/07/20 03:59 Dextrose (Dextrose 50%) 50 ml Q30M PRN IV Hypoglycemia 01/08/20 04:00 04/07/20 03:59 01/08/20 17:17 Diphenhydramine HCl (Benadryl) 25 mg Q6H PRN IVP Itching 01/08/20 07:15 02/07/20 07:14 01/10/20 06:20 Docusate Sodium (Colace) 100 mg TWICE A DAY ORAL 01/12/20 09:00 02/11/20 08:59 Dronabinol (Marinol) 2.5 mg BID ORAL 01/12/20 09:00 04/11/20 08:59 01/12/20 09:17 Gabapentin (Neurontin) 200 mg QHS ORAL 01/08/20 21:00 02/07/20 20:59 01/11/20 21:00 Heparin Sodium (Porcine) (Heparin Sod 1000 units/ml 10ml) 500 unit ONCE PRN IV HD 01/12/20 06:00 01/12/20 23:59 Hydralazine HCl (Apresoline) 20 mg Q6H PRN IV For High Blood Pressure 01/08/20 12:00 04/07/20 03:59 01/09/20 08:41 Hydralazine HCl (Apresoline) 100 mg Q6HR ORAL 01/08/20 12:00 04/07/20 11:59 01/12/20 06:15 Hydrocortisone (Hydrocortisone) 1 applic Q6H PRN TOPIC Itching 01/08/20 09:30 04/07/20 09:29 01/09/20 11:56 Hydromorphone HCl (Dilaudid) 1.5 mg EVERY 3 HOURS PRN IVP Severe Pain (Pain Scale 7-10) 01/09/20 01:15 01/16/20 01:14 01/10/20 17:07 Insulin Aspart (NovoLOG) BEFORE MEALS AND HS SUBQ 01/08/20 06:30 04/07/20 06:29 01/12/20 06:16 Insulin Detemir (Levemir) 10 units Q12HR SUBQ 01/08/20 09:00 04/07/20 08:59 01/08/20 09:32 Lisinopril (PriniviL) 40 mg DAILY ORAL 01/08/20 12:00 02/07/20 11:59 01/10/20 08:48 Metoclopramide HCl (Reglan) 5 mg Q8H PRN IVP Nausea & Vomiting 01/09/20 09:15 02/08/20 09:14 01/09/20 19:45 Metoprolol Tartrate (Lopressor) 25 mg Q12HR ORAL 01/08/20 12:00 04/07/20 11:59 01/12/20 09:18 Ondansetron HCl (Zofran) 6 mg EVERY 6 HOURS PRN IVP Nausea & Vomiting 01/09/20 01:15 02/08/20 01:14 01/09/20 03:35 Pantoprazole (Protonix) 40 mg DAILY IVP 01/12/20 09:00 02/11/20 08:59 01/12/20 09:17 Piperacillin Sod/ Tazobactam Sod 2.25 gm/Dextrose 55 ml @ 110 mls/hr Q8HR IV 01/11/20 14:00 01/16/20 13:59 01/12/20 06:15 Polyethylene Glycol (Miralax) 17 gm BEDTIME ORAL 01/12/20 21:00 02/11/20 20:59 Sodium Chloride 1,000 ml @ 500 mls/hr Q2H PRN IVLG sbp<90 during hd 01/12/20 06:00 01/12/20 23:59 Assessment/Plan Assessment/Plan Impression: Hypertensive urgency ESRD on dialysis, right hydronephrosis - had previous nephrostomy Pneumonia Right Pleural effusion Congestive heart failure Hypoxia Abdominal pain Hyperglycemia Long QT interval Diabetes Plan: Antihypertensive PO Antibiotics- Bactrim ? currently on Zosyn O2 PRN Renal noted HD ID followup Cardiology consult Thoracentesis if able to get consent Monitor labs impression, plan, and exam edited and reviewed in detail care discussed with Vitor Salazar MD Jan 12, 2020 09:25
--- NOTE | 2020-01-12 09:56 | NUR ---
CASE MANAGEMENT:REVIEW 01/12/20 SI: HTN URGENCY. PNA. CHF 97.7 56 14 163/68 98% ON 2L H/H-10.8/35.9 NA-133 BUN+45 CR+7.0 IS: IV ZOSYN Q8HRS MARINOL PO BID IV PROTONIX QD HYDRALAZINE PO Q6HRS LOPRESSOR PO Q12 LISINOPRIL PO QD : TELEMETRY STATUS DCP; FROM HOME PLAN: THORACENTESIS FOR TODAY
--- NOTE | 2020-01-12 10:07 | NUR ---
NURSE NOTES: Patient was educated on meds; risks, benefits and purpose but refused certain medications. She has three scheduled blood pressure Meds but only wanted metoprolol. Patient also did not want levemir insulin because she says,"I dont eat much so I dont want insulin" ([place]ian).
--- NOTE | 2020-01-12 11:20 | Infectious Diseases Prog Note ---
Assessment/Plan Assessment/Plan antibiotics : zosyn A 1. e.coli Pneumonia. 2. Diabetes. 3. Hypertension. 4. Renal failure on dialysis. P 1. continue zosyn 5 more days 2. will follow up cultures Subjective ROS Limited/Unobtainable: Yes Allergies: Coded Allergies: No Known Allergies (Unverified , 11/10/12) Objective Last 24 Hour Vital Signs Date Time Temp Pulse Resp B/P (MAP) Pulse Ox O2 Delivery O2 Flow Rate FiO2 01/12/20 09:18 60 139/63 01/12/20 09:00 139/63 01/12/20 09:00 60 139/63 01/12/20 08:00 96.7 18 139/63 (88) 100 01/12/20 08:00 56 01/12/20 06:15 163/68 01/12/20 04:00 97.7 56 14 163/68 (99) 98 01/12/20 04:00 56 01/12/20 00:00 55 01/12/20 00:00 139/44 01/12/20 00:00 97.9 54 14 149/63 (91) 97 01/11/20 21:00 53 166/70 01/11/20 20:00 97.5 53 14 166/70 (102) 98 01/11/20 19:52 99 Nasal Cannula 2.0 28 01/11/20 17:45 128/71 01/11/20 16:00 96.8 77 19 128/71 (90) 97 01/11/20 16:00 54 01/11/20 12:00 127/80 01/11/20 12:00 97.8 80 19 127/80 (96) 96 01/11/20 12:00 54 Height (Feet): 5 Weight (Pounds): 130 Respiratory/Chest: lungs clear Cardiovascular: normal rate, regular rhythm, no gallop/murmur Abdomen: soft, non tender Extremities: no edema Microbiology Date/Time Source Procedure Growth Status 01/09/20 13:30 Sputum Gram Stain - Final Resulted 01/09/20 13:30 Sputum Culture - Preliminary Escherichia Coli - Esbl Usual Respiratory Maryse Resulted Laboratory Tests Test 01/11/20 12:07 01/11/20 16:49 01/12/20 05:43 01/12/20 07:17 POC Whole Blood Glucose 138 MG/DL (74-106) H 147 MG/DL (74-106) H 193 MG/DL (74-106) H White Blood Count 5.4 K/UL (4.8-10.8) Red Blood Count 3.70 M/UL (4.20-5.40) L Hemoglobin 10.8 G/DL (12.0-16.0) L Hematocrit 35.9 % (37.0-47.0) L Mean Corpuscular Volume 97 FL (80-99) Mean Corpuscular Hemoglobin 29.3 PG (27.0-31.0) Mean Corpuscular Hemoglobin Concent 30.2 G/DL (32.0-36.0) L Red Cell Distribution Width 15.5 % (11.6-14.8) H Platelet Count 213 K/UL (150-450) Mean Platelet Volume 8.6 FL (6.5-10.1) Neutrophils (%) (Auto) 76.3 % (45.0-75.0) H Lymphocytes (%) (Auto) 13.3 % (20.0-45.0) L Monocytes (%) (Auto) 8.5 % (1.0-10.0) Eosinophils (%) (Auto) 0.9 % (0.0-3.0) Basophils (%) (Auto) 1.0 % (0.0-2.0) Sodium Level 133 MMOL/L (136-145) L Potassium Level 4.7 MMOL/L (3.5-5.1) Chloride Level 97 MMOL/L (98-107) L Carbon Dioxide Level 25 MMOL/L (21-32) Anion Gap 12 mmol/L (5-15) Blood Urea Nitrogen 45 mg/dL (7-18) H Creatinine 7.0 MG/DL (0.55-1.30) H Estimat Glomerular Filtration Rate 6.2 mL/min (>60) Glucose Level 176 MG/DL (74-106) H Calcium Level 8.0 MG/DL (8.5-10.1) L Current Medications Medications (Trade) Dose Ordered Sig/Dereje Route PRN Reason Start Time Stop Time Status Last Admin Dose Admin Acetaminophen (Tylenol) 650 mg Q6H PRN ORAL Mild Pain (Pain Scale 1-3) 01/08/20 04:00 12/14/20 03:59 Acetaminophen/ Hydrocodone Bitart ([place] 5/325) 1 tab Q4H PRN ORAL Moderate Pain (Pain Scale 4-6) 01/08/20 04:00 01/15/20 03:59 01/09/20 21:13 Amlodipine Besylate (Norvasc) 10 mg BID ORAL 01/08/20 18:00 02/07/20 17:59 01/10/20 17:05 Barium Sulfate (Varibar Honey) 250 ml NOW PRN MC RAD 01/11/20 13:00 01/14/20 12:47 Barium Sulfate (Varibar [place]) 240 ml NOW PRN MC RAD 01/11/20 13:00 01/14/20 12:47 Barium Sulfate (Varibar Pudding) 230 ml NOW PRN MC RAD 01/11/20 13:00 01/14/20 12:47 Barium Sulfate (Varibar Thin Liquid powder) 148 gm NOW PRN RAD 01/11/20 13:00 01/14/20 12:47 Clonidine HCl (Catapres TTS-3) 2 patch QWEEK TDERMAL 01/08/20 14:00 04/07/20 13:59 01/08/20 14:42 Clonidine HCl (Catapres Tab) 0.1 mg EVERY 6 HOURS PRN ORAL For High Blood Pressure 01/08/20 04:00 04/07/20 03:59 Dextrose (Dextrose 50%) 25 ml Q30M PRN IV Hypoglycemia 01/08/20 04:00 04/07/20 03:59 Dextrose (Dextrose 50%) 50 ml Q30M PRN IV Hypoglycemia 01/08/20 04:00 04/07/20 03:59 01/08/20 17:17 Diphenhydramine HCl (Benadryl) 25 mg Q6H PRN IVP Itching 01/08/20 07:15 02/07/20 07:14 01/10/20 06:20 Docusate Sodium (Colace) 100 mg TWICE A DAY ORAL 01/12/20 09:00 02/11/20 08:59 Dronabinol (Marinol) 2.5 mg BID ORAL 01/12/20 09:00 04/11/20 08:59 01/12/20 09:17 Gabapentin (Neurontin) 200 mg QHS ORAL 01/08/20 21:00 02/07/20 20:59 01/11/20 21:00 Heparin Sodium (Porcine) (Heparin Sod 1000 units/ml 10ml) 500 unit ONCE PRN IV HD 01/12/20 06:00 01/12/20 23:59 Hydralazine HCl (Apresoline) 20 mg Q6H PRN IV For High Blood Pressure 01/08/20 12:00 04/07/20 03:59 01/09/20 08:41 Hydralazine HCl (Apresoline) 100 mg Q6HR ORAL 01/08/20 12:00 04/07/20 11:59 01/12/20 06:15 Hydrocortisone (Hydrocortisone) 1 applic Q6H PRN TOPIC Itching 01/08/20 09:30 04/07/20 09:29 01/09/20 11:56 Hydromorphone HCl (Dilaudid) 1.5 mg EVERY 3 HOURS PRN IVP Severe Pain (Pain Scale 7-10) 01/09/20 01:15 01/16/20 01:14 01/10/20 17:07 Insulin Aspart (NovoLOG) BEFORE MEALS AND HS SUBQ 01/08/20 06:30 04/07/20 06:29 01/12/20 06:16 Insulin Detemir (Levemir) 10 units Q12HR SUBQ 01/08/20 09:00 04/07/20 08:59 01/08/20 09:32 Lisinopril (PriniviL) 40 mg DAILY ORAL 01/08/20 12:00 02/07/20 11:59 01/10/20 08:48 Metoclopramide HCl (Reglan) 5 mg Q8H PRN IVP Nausea & Vomiting 01/09/20 09:15 02/08/20 09:14 01/09/20 19:45 Metoprolol Tartrate (Lopressor) 25 mg Q12HR ORAL 01/08/20 12:00 04/07/20 11:59 01/12/20 09:18 Ondansetron HCl (Zofran) 6 mg EVERY 6 HOURS PRN IVP Nausea & Vomiting 01/09/20 01:15 02/08/20 01:14 01/09/20 03:35 Pantoprazole (Protonix) 40 mg DAILY IVP 01/12/20 09:00 02/11/20 08:59 01/12/20 09:17 Piperacillin Sod/ Tazobactam Sod 2.25 gm/Dextrose 55 ml @ 110 mls/hr Q8HR IV 01/11/20 14:00 01/16/20 13:59 01/12/20 06:15 Polyethylene Glycol (Miralax) 17 gm BEDTIME ORAL 01/12/20 21:00 02/11/20 20:59 Sodium Chloride 1,000 ml @ 500 mls/hr Q2H PRN IVLG sbp<90 during hd 01/12/20 06:00 01/12/20 23:59 Aurelia Cloud MD Jan 12, 2020 11:20
[2020-01-12 11:38] VITALS: BP 137/71
--- NOTE | 2020-01-12 13:23 | Surgery Progress Note ---
Surgery Progress Note Subjective Symptoms: improved, tolerating diet, passing flatus, BM Objective Last 24 Hour Vital Signs Date Time Temp Pulse Resp B/P (MAP) Pulse Ox O2 Delivery O2 Flow Rate FiO2 01/12/20 13:00 137/71 01/12/20 11:38 96.8 69 20 137/71 (93) 100 01/12/20 09:18 60 139/63 01/12/20 09:00 139/63 01/12/20 09:00 60 139/63 01/12/20 08:00 96.7 18 139/63 (88) 100 01/12/20 08:00 56 01/12/20 06:15 163/68 01/12/20 04:00 97.7 56 14 163/68 (99) 98 01/12/20 04:00 56 01/12/20 00:00 55 01/12/20 00:00 139/44 01/12/20 00:00 97.9 54 14 149/63 (91) 97 01/11/20 21:00 53 166/70 01/11/20 20:00 97.5 53 14 166/70 (102) 98 01/11/20 19:52 99 Nasal Cannula 2.0 28 01/11/20 17:45 128/71 01/11/20 16:00 96.8 77 19 128/71 (90) 97 01/11/20 16:00 54 I&O Intake and Output 01/11/20 01/12/20 19:00 07:00 Intake Total 120 ml 600 ml Balance 120 ml 600 ml Intake Oral 120 ml 600 ml # Voids 3 Dressing: saturated Cardiovascular: RSR Respiratory: decreased breath sounds Abdomen: soft, non-tender, present bowel sounds Extremities: no tenderness, no cyanosis Laboratory Tests Test 01/11/20 16:49 01/12/20 05:43 01/12/20 07:17 01/12/20 11:25 POC Whole Blood Glucose 147 MG/DL (74-106) H 193 MG/DL (74-106) H 181 MG/DL (74-106) H White Blood Count 5.4 K/UL (4.8-10.8) Red Blood Count 3.70 M/UL (4.20-5.40) L Hemoglobin 10.8 G/DL (12.0-16.0) L Hematocrit 35.9 % (37.0-47.0) L Mean Corpuscular Volume 97 FL (80-99) Mean Corpuscular Hemoglobin 29.3 PG (27.0-31.0) Mean Corpuscular Hemoglobin Concent 30.2 G/DL (32.0-36.0) L Red Cell Distribution Width 15.5 % (11.6-14.8) H Platelet Count 213 K/UL (150-450) Mean Platelet Volume 8.6 FL (6.5-10.1) Neutrophils (%) (Auto) 76.3 % (45.0-75.0) H Lymphocytes (%) (Auto) 13.3 % (20.0-45.0) L Monocytes (%) (Auto) 8.5 % (1.0-10.0) Eosinophils (%) (Auto) 0.9 % (0.0-3.0) Basophils (%) (Auto) 1.0 % (0.0-2.0) Sodium Level 133 MMOL/L (136-145) L Potassium Level 4.7 MMOL/L (3.5-5.1) Chloride Level 97 MMOL/L (98-107) L Carbon Dioxide Level 25 MMOL/L (21-32) Anion Gap 12 mmol/L (5-15) Blood Urea Nitrogen 45 mg/dL (7-18) H Creatinine 7.0 MG/DL (0.55-1.30) H Estimat Glomerular Filtration Rate 6.2 mL/min (>60) Glucose Level 176 MG/DL (74-106) H Calcium Level 8.0 MG/DL (8.5-10.1) L Plan Problems: (1) Heel ulcer Assessment & Plan: identified to have heel ulcer on R upon admission. unstageable ulcer with small necrotic eschar. cover with optifoam and elevate heel left side with TMA (2) Hyperglycemia (3) CHF (congestive heart failure) (4) Long QT interval (5) Shortness of breath (6) Pleural effusion (7) Hypoxia (8) Pneumonia (9) Abdominal pain Assessment & Plan: 49F abd pain with HD. had after HD recently and acute worsening. came in for eval admitted for care and feels better now no n/v/f/c pain resolved but believes will occur after HD CT reviewed may need outpatient CTA or angio okay for diet currently abd exam benign ABDOMEN: Liver: Unremarkable. No mass. Gallbladder and bile ducts: Unremarkable. No calcified stones. No ductal dilation. Pancreas: Unremarkable. No mass. No ductal dilation. Spleen: Unremarkable. No splenomegaly. Adrenals: Unremarkable. No mass. Kidneys and ureters: Atrophy of the left kidney. Severe right hydronephrosis. No obvious obstructing stone or mass. Stomach and bowel: Unremarkable. No obstruction. No mucosal thickening. PELVIS: Appendix: No findings to suggest acute appendicitis. Bladder: Unremarkable. No mass. Reproductive: Unremarkable as visualized. ABDOMEN and PELVIS: Intraperitoneal space: Moderate abdominal and pelvic free fluid. No free air. Bones/joints: No acute fracture. No dislocation. Soft tissues: Unremarkable. Vasculature: Diffuse atherosclerotic vascular disease. No abdominal aortic aneurysm. Lymph nodes: Unremarkable. No enlarged lymph nodes. IMPRESSION: 1. Severe right hydronephrosis. No obvious obstructing stone or mass. 2. Moderate peritoneal and pelvic free fluid. 3. Prominent atherosclerotic vascular disease. Right deep veins: No DVT in the right internal jugular, subclavian, axillary, or brachial veins. The veins demonstrate normal color flow, are normally compressible, with normal phasic flow and/or augmentation response. Right superficial veins: No thrombus in the visualized right basilic and cephalic veins. ----- Left deep veins: No DVT in the left internal jugular, subclavian, axillary, or brachial veins. The veins demonstrate normal color flow, are normally compressible, with normal phasic flow and/or augmentation response. Left superficial veins: No thrombus in the visualized left basilic and cephalic veins. IMPRESSION: No deep venous thrombosis within the bilateral lower extremities. Ms. Sarmiento is a 49 year old female admitted for hypertensive emergency 241/111 and large right pleural effusion that required her to have ICU medical management and procedural intervention. The BP was managed and out to tele, currently awaiting for consent for VATS. Her labs and hemodynamic are stable. CT chest imaging reviewed. The trachea is pushed/pulled to left against pleural effusion, possible compression of esophagus may result dysphagia. The part of right lower lobe was concerning for chronic aspiration. PMH: ESRD, HD Mon/Wed/Fri, DM, HTN, CHF, right hydronephrosis, Findings: Ms. Sarmiento was able to arouse. She is oriented to self place and month. She follows commands. Oral exam revealed xerostomia and erythema of mucosa. The teeth is grossly intact. Her cough and voice is intact. Given her thin liquid, she tolerated well without overt s.s of aspiration. Given her oat meal, she dislike the flavor and spitted out. She kindly declined further PO trial stating " Not hungry" in [place]. Interpretation: 1. Grossly functional oropharyngeal swallow and laryngeal function 2. Possible esophageal dysphagia with large right pleural effusion with compression. 3. Possible chronic micro aspiration 4. Poor PO intake Plan: 1. Continue with regular diet now. -follow up with calorie count result, aspiration precaution and diet texture appropriateness (10) ESRD (end stage renal disease) on dialysis (11) Hypertensive emergency (12) Acute lower urinary tract infection (13) Dehydration Sergio Lara Jan 12, 2020 13:23
--- NOTE | 2020-01-12 15:38 | Diagnostic Imaging Report ---
Indication: Pleural effusion. Assess for possible thoracentesis Technique: Limited focused grayscale ultrasound scanning of the right chest Comparison: None Findings: Focused grayscale ultrasound scanning of the right chest performed to assess for the presence of pleural effusion. Only trace effusion is identified. IMPRESSION: Trace right pleural effusion. No suitable pocket for thoracentesis.
[2020-01-12 16:00] VITALS: BP 163/68
--- NOTE | 2020-01-12 16:22 | NUR ---
INSURANCE FAXED CLINICALS TO [facility] /[facility] [phone] FX PH [phone] PH [phone]
--- NOTE | 2020-01-12 19:25 | NUR ---
NURSE HAND-OFF REPORT: Important Events on Shift:[Cancelled Thoracentesis, BM today] Patient Status: [Stable, AxOx4] Diet: [Renal pureed diet with Calorie count] Pending Orders: [Dialysis] Pending Results/Labs:[N/A] Pending MD notification:[N/A] Latest Vital Signs: Temperature 97.7 , Pulse 56 , B/P 163 /68 , Respiratory Rate 14 , O2 SAT 98 , Nasal Cannula, O2 Flow Rate 2.0 . Vital Sign Comment: [] EKG Rhythm: Sinus Bradycardia Rhythm change?: N MD Notified?: Y -Dr Ellie QUIGLEY Response: No New Orders Received Latest Dominique Fall Score: 50 Fall Risk: High Risk Safety Measures: Call light Within Reach, Bed Alarm Zone 1, Side Rails Side Rails x2, Bed position Low and Locked. Fall Precautions: Yellow Socks Yellow Gown Door Sign Patient Fall Education Report given to [TOMI Medellin].
[2020-01-12 20:00] VITALS: BP 130/61
--- NOTE | 2020-01-12 20:02 | NUR ---
NURSE NOTES: RECEIVED REPORT FROM TOMI ROSALES. PT IN BED AWAKE, ALERT/ORIENTED X 2-3, ABLE TO MAKE NEEDS KNOWN IN [place], ON 02 VIA NC AT 2L/MIN NO RESP DISTRESS NOTED. 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 LFA 20G IV SALINE LOCKED. NO C/O PAIN. ON LOW AIR LOSS MATTRESS. BED IN LOW POSITION & LOCKED. SIDE RAILS UP X3, BED ALARM ON. CALL LIGHT WITH IN REACH. WILL CONTINUE PLAN OF CARE.
--- NOTE | 2020-01-12 20:30 | NUR ---
NURSE NOTES: CALLED PT SON EARLE MONTESINOS TO GET CONSENT FOR HEMODIALYSIS WITNESSED BY CHARGE NURSE.
--- NOTE | 2020-01-12 20:35 | Nephrology Progress Note ---
Assessment/Plan Problem List: (1) ESRD (end stage renal disease) on dialysis (2) Abdominal pain (3) CHF (congestive heart failure) (4) Gastritis (5) Malignant hypertension (arteriolar nephrosclerosis) (6) Metabolic encephalopathy (7) Pneumonia Plan avoid tramadol in eskd, minimize opiates, reglan can also cause encephalopathy, serial HD, titrate bp meds, GI eval ongoing, refused po meds today Subjective ROS Limited/Unobtainable: Yes Objective Objective Last 24 Hour Vital Signs Date Time Temp Pulse Resp B/P (MAP) Pulse Ox O2 Delivery O2 Flow Rate FiO2 01/12/20 20:25 98 Nasal Cannula 2.0 28 01/12/20 20:00 97.9 53 16 130/61 (84) 98 01/12/20 18:04 56 163/68 01/12/20 18:03 163/68 01/12/20 16:00 97.7 56 14 163/68 (99) 98 01/12/20 16:00 52 01/12/20 13:00 137/71 01/12/20 12:00 53 01/12/20 11:38 96.8 69 20 137/71 (93) 100 01/12/20 09:18 60 139/63 01/12/20 09:00 139/63 01/12/20 09:00 60 139/63 01/12/20 08:25 99 Nasal Cannula 2.0 28 01/12/20 08:00 96.7 18 139/63 (88) 100 01/12/20 08:00 Nasal Cannula 2.0 Nasal Cannula 2.0 Nasal Cannula 2.0 01/12/20 08:00 56 01/12/20 06:15 163/68 01/12/20 04:00 97.7 56 14 163/68 (99) 98 01/12/20 04:00 56 01/12/20 00:00 55 01/12/20 00:00 139/44 01/12/20 00:00 97.9 54 14 149/63 (91) 97 01/11/20 21:00 53 166/70 Intake and Output 01/11/20 01/12/20 19:00 07:00 Intake Total 120 ml 600 ml Balance 120 ml 600 ml Intake Oral 120 ml 600 ml # Voids 3 Laboratory Tests 01/12/20 05:43: POC Whole Blood Glucose 193H 01/12/20 07:17: White Blood Count 5.4, Red Blood Count 3.70L, Hemoglobin 10.8L, Hematocrit 35.9L , Mean Corpuscular Volume 97, Mean Corpuscular Hemoglobin 29.3, Mean Corpuscular Hemoglobin Concent 30.2L, Red Cell Distribution Width 15.5H, Platelet Count 213, Mean Platelet Volume 8.6, Neutrophils (%) (Auto) 76.3H, Lymphocytes (%) (Auto) 13.3L, Monocytes (%) (Auto) 8.5, Eosinophils (%) (Auto) 0.9, Basophils (%) (Auto) 1.0, Sodium Level 133L, Potassium Level 4.7, Chloride Level 97L, Carbon Dioxide Level 25, Anion Gap 12, Blood Urea Nitrogen 45H, Creatinine 7.0H, Estimat Glomerular Filtration Rate 6.2, Glucose Level 176H, Calcium Level 8.0L 01/12/20 11:25: POC Whole Blood Glucose 181H 01/12/20 16:04: POC Whole Blood Glucose 227H Height (Feet): 5 Weight (Pounds): 130 General Appearance: lethargic EENT: normal ENT inspection, other - blind Neck: supple Cardiovascular: regular rhythm Respiratory/Chest: lungs clear Abdomen: non tender Neurologic: community development coordinator II-XII grossly normal Wayne Carcamo MD Jan 12, 2020 20:35
[2020-01-12] MEDS ORDERED: Miralax 17gm pkt ORAL SCH (21:00)
--- NOTE | 2020-01-12 23:45 | NUR ---
NURSE NOTES: DIALYSIS DONE ONLY 500CC TAKEN PT REFUSED FURTHER DIALYSIS AT THIS TIME. STATED SHE ONLY WANTED DIALYSIS FOR ONE HOUR. PT IN STABLE CONDITION, ALERT, ORIENTED X4. NO C/O ANY DISTRESS AT THIS TIME.
[2020-01-13] VITALS: BP 133/62
[2020-01-13 04:00] VITALS: BP 154/66
[2020-01-13] MEDS: Piperacillin/Tazobactam 2.25 GM in D5W 55 ML IV SCH ×2 (05:20→14:00)
[2020-01-13] MEDS: NovoLOG Insulin Flexpen SUBQ SCH ×3 (06:30→16:30)
--- NOTE | 2020-01-13 06:30 | NUR ---
NURSE NOTES: PT REFUSED INSULIN IN AM, EXPLAINED TO PT THE NEED FOR INSULIN & BS RESULTS, PT STILL REFUSED.
--- NOTE | 2020-01-13 07:35 | NUR ---
NURSE HAND-OFF REPORT: Important Events on Shift:[DIALYSIS DONE ON 01/11 PT ONLY WANTED TO BE DIALAYISZED FOR 1 HR & ONLY 500CC REMOVED. PT REFUSED INSULIN COVERAGE IN AM BS 177] Patient Status: [STABLE] Diet: [RENAL PUREE MOIST] Pending Orders: [] Pending Results/Labs:[] Pending MD notification:[] Latest Vital Signs: Temperature 97.5 , Pulse 58 , B/P 154 /66 , Respiratory Rate 16 , O2 SAT 100 , Nasal Cannula, O2 Flow Rate 2.0 . Vital Sign Comment: [] EKG Rhythm: Sinus Bradycardia Rhythm change?: N MD Notified?: Y -Dr Ellie QUIGLEY Response: No New Orders Received Latest Dominique Fall Score: 50 Fall Risk: High Risk Safety Measures: Call light Within Reach, Bed Alarm Zone 1, Side Rails Side Rails x2, Bed position Low and Locked. Fall Precautions: Yellow Socks Yellow Gown Door Sign Patient Fall Education Report given to [SAMMIERN].
--- NOTE | 2020-01-13 07:36 | NUR ---
NURSE NOTES: Received patient in bed awake. O2 via NC at 2LPM in place, not in acute distress. IV line intact and patent. AVF on right upper arm present, no bleeding noted. SCD's in place. HOB elevated. Bed locked in low position. Call light within reach. Will continue plan of care.
[2020-01-13 08:00] VITALS: BP_SYST 148; BP_SYST 18; BP_DIAS 89; BP_DIAS 9
[2020-01-13 08:04] LABS: BASOPHILS % (AUTO) 0.9 % (0.0-2.0); EOSINOPHILS % (AUTO) 1.1 % (0.0-3.0); HEMATOCRIT 33.5 % (37.0-47.0); HEMOGLOBIN 10.7 G/DL (12.0-16.0); LYMPHOCYTES % (AUTO) 9.1 % (20.0-45.0); MEAN CORPUSCULAR VOLUME 92 FL (80-99); MONOCYTES % (AUTO) 6.3 % (1.0-10.0); NEUTROPHILS % (AUTO) 82.7 % (45.0-75.0); PLATELET COUNT 186 K/UL (150-450); RED BLOOD COUNT 3.63 M/UL (4.20-5.40); RED CELL DISTRIBUTION WIDTH 15.6 % (11.6-14.8); WHITE BLOOD COUNT 5.4 K/UL (4.8-10.8)
[2020-01-13 08:32] LABS: ALBUMIN 2.7 G/DL (3.4-5.0); ALBUMIN/GLOBULIN RATIO 0.5 (1.0-2.7); BILIRUBIN,TOTAL 0.5 MG/DL (0.2-1.0); CREATININE 6.2 MG/DL (0.55-1.30); POTASSIUM 4.8 MMOL/L (3.5-5.1)
[2020-01-13] MEDS: Levemir Flexpen SUBQ SCH (09:00)
[2020-01-13] MEDS: Lisinopril 20mg tab ORAL SCH (09:00)
[2020-01-13] MEDS: Docusate 100mg cap ORAL SCH (09:00)
[2020-01-13] MEDS: Dronabinol 2.5mg Cap ORAL SCH (09:00)
[2020-01-13] MEDS: Pantoprazole Inj IVP SCH (09:00)
[2020-01-13] MEDS ORDERED: HydrALAZINE 50mg tab ORAL SCH (09:00)
--- NOTE | 2020-01-13 10:54 | Pulmonology Progress Note ---
Subjective ROS Limited/Unobtainable: Yes Allergies: Coded Allergies: No Known Allergies (Unverified , 11/10/12) Subjective care noted no distress still altered Objective Last 24 Hour Vital Signs Date Time Temp Pulse Resp B/P (MAP) Pulse Ox O2 Delivery O2 Flow Rate FiO2 01/13/20 08:00 60 01/13/20 08:00 97.7 57 18 18/9 (12) 97 01/13/20 04:00 58 01/13/20 04:00 97.5 58 16 154/66 (95) 100 01/13/20 00:05 70 144/65 01/13/20 00:00 97.4 54 16 133/62 (85) 100 01/13/20 00:00 54 01/12/20 20:25 98 Nasal Cannula 2.0 28 01/12/20 20:00 97.9 53 16 130/61 (84) 98 01/12/20 20:00 58 01/12/20 20:00 Nasal Cannula 2.0 Nasal Cannula 2.0 Nasal Cannula 2.0 01/12/20 18:04 56 163/68 01/12/20 18:03 163/68 01/12/20 16:00 97.7 56 14 163/68 (99) 98 01/12/20 16:00 52 01/12/20 13:00 137/71 01/12/20 12:00 53 01/12/20 11:38 96.8 69 20 137/71 (93) 100 Intake and Output 01/12/20 01/13/20 19:00 07:00 Intake Total 475 ml Balance 475 ml Intake Oral 475 ml # Bowel Movements 1 Objective WDWN NAD clear breath sounds bilaterally without rhonchi or wheeze [id number] without MRG NABS nontender no HSM no CCE nonfocal Laboratory Tests 01/12/20 11:25: POC Whole Blood Glucose 181H 01/12/20 16:04: POC Whole Blood Glucose 227H 01/12/20 21:00: POC Whole Blood Glucose 97 01/13/20 05:55: POC Whole Blood Glucose 177H 01/13/20 07:35: White Blood Count 5.4, Red Blood Count 3.63L, Hemoglobin 10.7L, Hematocrit 33.5L , Mean Corpuscular Volume 92, Mean Corpuscular Hemoglobin 29.5, Mean Corpuscular Hemoglobin Concent 31.9L, Red Cell Distribution Width 15.6H, Platelet Count 186, Mean Platelet Volume 8.7, Neutrophils (%) (Auto) 82.7H, Lymphocytes (%) (Auto) 9.1L, Monocytes (%) (Auto) 6.3, Eosinophils (%) (Auto) 1.1, Basophils (%) (Auto) 0.9, Sodium Level 131L, Potassium Level 4.8, Chloride Level 95L, Carbon Dioxide Level 22, Anion Gap 14, Blood Urea Nitrogen 41H, Creatinine 6.2H, Estimat Glomerular Filtration Rate 7.2, Glucose Level 180H, Calcium Level 8.0L, Total Bilirubin 0.5, Aspartate Amino Transf (AST/SGOT) 14L, Alanine Aminotransferase (ALT/SGPT) 17, Alkaline Phosphatase 298H, Total Protein 7.8, Albumin 2.7L, Globulin 5.1, Albumin/Globulin Ratio 0.5L, Random Vancomycin Level 22.0 Current Medications Medications (Trade) Dose Ordered Sig/Dereje Route PRN Reason Start Time Stop Time Status Last Admin Dose Admin Acetaminophen (Tylenol) 650 mg Q6H PRN ORAL Mild Pain (Pain Scale 1-3) 01/08/20 04:00 02/07/20 03:59 Acetaminophen/ Hydrocodone Bitart ([place] 5/325) 1 tab Q4H PRN ORAL Moderate Pain (Pain Scale 4-6) 01/08/20 04:00 01/15/20 03:59 01/09/20 21:13 Amlodipine Besylate (Norvasc) 10 mg BID ORAL 01/08/20 18:00 02/07/20 17:59 01/12/20 18:04 Barium Sulfate (Varibar Honey) 250 ml NOW PRN MC RAD 01/11/20 13:00 01/14/20 12:47 Barium Sulfate (Varibar [place]) 240 ml NOW PRN MC RAD 01/11/20 13:00 01/14/20 12:47 Barium Sulfate (Varibar Pudding) 230 ml NOW PRN MC RAD 01/11/20 13:00 01/14/20 12:47 Barium Sulfate (Varibar Thin Liquid powder) 148 gm NOW PRN MC RAD 01/11/20 13:00 01/14/20 12:47 Clonidine HCl (Catapres TTS-3) 2 patch QWEEK TDERMAL 01/08/20 14:00 04/07/20 13:59 01/08/20 14:42 Clonidine HCl (Catapres Tab) 0.1 mg EVERY 6 HOURS PRN ORAL For High Blood Pressure 01/08/20 04:00 04/07/20 03:59 Dextrose (Dextrose 50%) 25 ml Q30M PRN IV Hypoglycemia 01/08/20 04:00 04/07/20 03:59 Dextrose (Dextrose 50%) 50 ml Q30M PRN IV Hypoglycemia 01/08/20 04:00 04/07/20 03:59 01/08/20 17:17 Diphenhydramine HCl (Benadryl) 25 mg Q6H PRN IVP Itching 01/08/20 07:15 02/07/20 07:14 01/10/20 06:20 Docusate Sodium (Colace) 100 mg TWICE A DAY ORAL 01/12/20 09:00 02/11/20 08:59 Dronabinol (Marinol) 2.5 mg BID ORAL 01/12/20 09:00 04/11/20 08:59 01/12/20 18:03 Gabapentin (Neurontin) 200 mg QHS ORAL 01/08/20 21:00 02/07/20 20:59 01/13/20 00:06 Hydralazine HCl (Apresoline) 20 mg Q6H PRN IV For High Blood Pressure 01/08/20 12:00 04/07/20 03:59 01/09/20 08:41 Hydralazine HCl (Apresoline) 100 mg BID ORAL 01/13/20 09:00 04/12/20 08:59 Hydrocortisone (Hydrocortisone) 1 applic Q6H PRN TOPIC Itching 01/08/20 09:30 04/07/20 09:29 01/09/20 11:56 Hydromorphone HCl (Dilaudid) 1.5 mg EVERY 3 HOURS PRN IVP Severe Pain (Pain Scale 7-10) 01/09/20 01:15 01/16/20 01:14 01/10/20 17:07 Insulin Aspart (NovoLOG) BEFORE MEALS AND HS SUBQ 01/08/20 06:30 04/07/20 06:29 01/12/20 18:07 Insulin Detemir (Levemir) 10 units Q12HR SUBQ 01/08/20 09:00 04/07/20 08:59 01/08/20 09:32 Lisinopril (PriniviL) 40 mg DAILY ORAL 01/08/20 12:00 02/07/20 11:59 01/10/20 08:48 Metoclopramide HCl (Reglan) 5 mg Q8H PRN IVP Nausea & Vomiting 01/09/20 09:15 02/08/20 09:14 01/09/20 19:45 Metoprolol Tartrate (Lopressor) 25 mg Q12HR ORAL 01/08/20 12:00 04/07/20 11:59 01/13/20 00:05 Ondansetron HCl (Zofran) 6 mg EVERY 6 HOURS PRN IVP Nausea & Vomiting 01/09/20 01:15 02/08/20 01:14 01/09/20 03:35 Pantoprazole (Protonix) 40 mg DAILY IVP 01/12/20 09:00 02/11/20 08:59 01/12/20 09:17 Piperacillin Sod/ Tazobactam Sod 2.25 gm/Dextrose 55 ml @ 110 mls/hr Q8HR IV 01/11/20 14:00 01/16/20 13:59 01/13/20 05:20 Polyethylene Glycol (Miralax) 17 gm BEDTIME ORAL 01/12/20 21:00 02/11/20 20:59 01/13/20 00:06 Assessment/Plan Assessment/Plan Impression: Hypertensive urgency ESRD on dialysis, right hydronephrosis - had previous nephrostomy Pneumonia Right Pleural effusion Congestive heart failure Hypoxia Abdominal pain Hyperglycemia Long QT interval Diabetes Plan: Antihypertensive PO Antibiotics- Bactrim ? currently on Zosyn O2 PRN Renal noted HD ID followup Cardiology consult Thoracentesis not successful; will call thoracic for VATS Monitor labs impression, plan, and exam edited and reviewed in detail care discussed with Vitor Salazar MD Jan 13, 2020 10:54
--- NOTE | 2020-01-13 11:06 | Infectious Diseases Prog Note ---
Assessment/Plan Assessment/Plan A 1. E.coli Pneumonia. 2. Diabetes. 3. Hypertension. 4. Renal failure on dialysis. 5. Anemia P 1. continue Zosyn 4 more days 2. will follow up cultures Subjective ROS Limited/Unobtainable: Yes Constitutional: Denies: fever Respiratory: Reports: no symptoms Genitourinary: Reports: no symptoms Allergies: Coded Allergies: No Known Allergies (Unverified , 11/10/12) Objective Last 24 Hour Vital Signs Date Time Temp Pulse Resp B/P (MAP) Pulse Ox O2 Delivery O2 Flow Rate FiO2 01/13/20 08:00 60 01/13/20 08:00 97.7 57 18 18/9 (12) 97 01/13/20 04:00 58 01/13/20 04:00 97.5 58 16 154/66 (95) 100 01/13/20 00:05 70 144/65 01/13/20 00:00 97.4 54 16 133/62 (85) 100 01/13/20 00:00 54 01/12/20 20:25 98 Nasal Cannula 2.0 28 01/12/20 20:00 97.9 53 16 130/61 (84) 98 01/12/20 20:00 58 01/12/20 20:00 Nasal Cannula 2.0 Nasal Cannula 2.0 Nasal Cannula 2.0 01/12/20 18:04 56 163/68 01/12/20 18:03 163/68 01/12/20 16:00 97.7 56 14 163/68 (99) 98 01/12/20 16:00 52 01/12/20 13:00 137/71 01/12/20 12:00 53 01/12/20 11:38 96.8 69 20 137/71 (93) 100 Height (Feet): 5 Weight (Pounds): 130 General Appearance: no acute distress HEENT: mucous membranes moist Respiratory/Chest: lungs clear Cardiovascular: normal rate Abdomen: soft, non tender Extremities: no edema Neurologic/Psychiatric: alert, responsive Laboratory Tests Test 01/12/20 11:25 01/12/20 16:04 01/12/20 21:00 01/13/20 05:55 POC Whole Blood Glucose 181 MG/DL (74-106) H 227 MG/DL (74-106) H 97 MG/DL (74-106) 177 MG/DL (74-106) H Test 01/13/20 07:35 White Blood Count 5.4 K/UL (4.8-10.8) Red Blood Count 3.63 M/UL (4.20-5.40) L Hemoglobin 10.7 G/DL (12.0-16.0) L Hematocrit 33.5 % (37.0-47.0) L Mean Corpuscular Volume 92 FL (80-99) Mean Corpuscular Hemoglobin 29.5 PG (27.0-31.0) Mean Corpuscular Hemoglobin Concent 31.9 G/DL (32.0-36.0) L Red Cell Distribution Width 15.6 % (11.6-14.8) H Platelet Count 186 K/UL (150-450) Mean Platelet Volume 8.7 FL (6.5-10.1) Neutrophils (%) (Auto) 82.7 % (45.0-75.0) H Lymphocytes (%) (Auto) 9.1 % (20.0-45.0) L Monocytes (%) (Auto) 6.3 % (1.0-10.0) Eosinophils (%) (Auto) 1.1 % (0.0-3.0) Basophils (%) (Auto) 0.9 % (0.0-2.0) Sodium Level 131 MMOL/L (136-145) L Potassium Level 4.8 MMOL/L (3.5-5.1) Chloride Level 95 MMOL/L (98-107) L Carbon Dioxide Level 22 MMOL/L (21-32) Anion Gap 14 mmol/L (5-15) Blood Urea Nitrogen 41 mg/dL (7-18) H Creatinine 6.2 MG/DL (0.55-1.30) H Estimat Glomerular Filtration Rate 7.2 mL/min (>60) Glucose Level 180 MG/DL (74-106) H Calcium Level 8.0 MG/DL (8.5-10.1) L Total Bilirubin 0.5 MG/DL (0.2-1.0) Aspartate Amino Transf (AST/SGOT) 14 U/L (15-37) L Alanine Aminotransferase (ALT/SGPT) 17 U/L (12-78) Alkaline Phosphatase 298 U/L (46-116) H Total Protein 7.8 G/DL (6.4-8.2) Albumin 2.7 G/DL (3.4-5.0) L Globulin 5.1 g/dL Albumin/Globulin Ratio 0.5 (1.0-2.7) L Random Vancomycin Level 22.0 ug/mL Current Medications Medications (Trade) Dose Ordered Sig/Dereje Route PRN Reason Start Time Stop Time Status Last Admin Dose Admin Acetaminophen (Tylenol) 650 mg Q6H PRN ORAL Mild Pain (Pain Scale 1-3) 01/08/20 04:00 02/07/20 03:59 Acetaminophen/ Hydrocodone Bitart ([place] 5/325) 1 tab Q4H PRN ORAL Moderate Pain (Pain Scale 4-6) 01/08/20 04:00 01/15/20 03:59 01/09/20 21:13 Amlodipine Besylate (Norvasc) 10 mg BID ORAL 01/08/20 18:00 02/07/20 17:59 01/12/20 18:04 Barium Sulfate (Varibar Honey) 250 ml NOW PRN MC RAD 01/11/20 13:00 01/14/20 12:47 Barium Sulfate (Varibar [place]) 240 ml NOW PRN MC RAD 01/11/20 13:00 01/14/20 12:47 Barium Sulfate (Varibar Pudding) 230 ml NOW PRN MC RAD 01/11/20 13:00 01/14/20 12:47 Barium Sulfate (Varibar Thin Liquid powder) 148 gm NOW PRN MC RAD 01/11/20 13:00 01/14/20 12:47 Clonidine HCl (Catapres TTS-3) 2 patch QWEEK TDERMAL 01/08/20 14:00 04/07/20 13:59 01/08/20 14:42 Clonidine HCl (Catapres Tab) 0.1 mg EVERY 6 HOURS PRN ORAL For High Blood Pressure 01/08/20 04:00 04/07/20 03:59 Dextrose (Dextrose 50%) 25 ml Q30M PRN IV Hypoglycemia 01/08/20 04:00 04/07/20 03:59 Dextrose (Dextrose 50%) 50 ml Q30M PRN IV Hypoglycemia 01/08/20 04:00 04/07/20 03:59 01/08/20 17:17 Diphenhydramine HCl (Benadryl) 25 mg Q6H PRN IVP Itching 01/08/20 07:15 02/07/20 07:14 01/10/20 06:20 Docusate Sodium (Colace) 100 mg TWICE A DAY ORAL 01/12/20 09:00 02/11/20 08:59 Dronabinol (Marinol) 2.5 mg BID ORAL 01/12/20 09:00 04/11/20 08:59 01/12/20 18:03 Gabapentin (Neurontin) 200 mg QHS ORAL 01/08/20 21:00 02/07/20 20:59 01/13/20 00:06 Hydralazine HCl (Apresoline) 20 mg Q6H PRN IV For High Blood Pressure 01/08/20 12:00 04/07/20 03:59 01/09/20 08:41 Hydralazine HCl (Apresoline) 100 mg BID ORAL 01/13/20 09:00 04/12/20 08:59 Hydrocortisone (Hydrocortisone) 1 applic Q6H PRN TOPIC Itching 01/08/20 09:30 04/07/20 09:29 01/09/20 11:56 Hydromorphone HCl (Dilaudid) 1.5 mg EVERY 3 HOURS PRN IVP Severe Pain (Pain Scale 7-10) 01/09/20 01:15 01/16/20 01:14 01/10/20 17:07 Insulin Aspart (NovoLOG) BEFORE MEALS AND HS SUBQ 01/08/20 06:30 04/07/20 06:29 01/12/20 18:07 Insulin Detemir (Levemir) 10 units Q12HR SUBQ 01/08/20 09:00 04/07/20 08:59 01/08/20 09:32 Lisinopril (PriniviL) 40 mg DAILY ORAL 01/08/20 12:00 02/07/20 11:59 01/10/20 08:48 Metoclopramide HCl (Reglan) 5 mg Q8H PRN IVP Nausea & Vomiting 01/09/20 09:15 02/08/20 09:14 01/09/20 19:45 Metoprolol Tartrate (Lopressor) 25 mg Q12HR ORAL 01/08/20 12:00 04/07/20 11:59 01/13/20 00:05 Ondansetron HCl (Zofran) 6 mg EVERY 6 HOURS PRN IVP Nausea & Vomiting 01/09/20 01:15 02/08/20 01:14 01/09/20 03:35 Pantoprazole (Protonix) 40 mg DAILY IVP 01/12/20 09:00 02/11/20 08:59 01/12/20 09:17 Piperacillin Sod/ Tazobactam Sod 2.25 gm/Dextrose 55 ml @ 110 mls/hr Q8HR IV 01/11/20 14:00 01/16/20 13:59 01/13/20 05:20 Polyethylene Glycol (Miralax) 17 gm BEDTIME ORAL 01/12/20 21:00 02/11/20 20:59 01/13/20 00:06 Mati Pascual MD Jan 13, 2020 11:06
[2020-01-13 12:00] VITALS: BP 157/61
--- NOTE | 2020-01-13 12:02 | NUR ---
RD ASSESSMENT & RECOMMENDATIONS SEE CARE ACTIVITY FOR COMPLETE ASSESSMENT Kayden count x 48 hrs completed. --> Incomplete data, only 2/6 meal tickets available. - meal #1: chicken soup 100% - meal #2: 25% fish, 25% green beans, 25% bread, 0% pudding, unknown amount of Nepro. ------- Per EMR, pt variable intake w/ some refusals, but consumed 100% of breakfast and dinner yesterday. Noted that family assisted pt w/ dinner yesterday. Per ANIMAL TAXONOMIST, pt only consumed hot cereal this morning and refused the rest, including Nepro, although pt consumed all of Nepro yesterday. Per ANIMAL TAXONOMIST, pt refused Nepro this AM because it was giving her "diarrhea." Per EMR, pt has been constipated, s/p first BM yesterday, now on Colace. Pt refusing Colace as well. Marinol has been added but pt refused it this AM. Pt also noted to refuse NISS + Levemir. Cont to monitor Po intake closely. Encourage family to help feed if able as it appears that pt eats better w/ family. Will continue to offer Nepro BID and encourage intake. May need to consider liberalizing diet if poor PO continues. Last phos elevated, no updated phos. Pt seen by COVERAGE ANALYST, w/ rec for regular texture. Pt w/ pureed texture order, discussed w/ CRN regarding conflicting diet texture orders. Rec to consider advance texture as per COVERAGE ANALYST rec for improved food acceptance. DAILY ESTIMATED NEEDS: Needs based on ESRD on HD, Wound 50.8kg 30-35 kcals/kg [id number] total kcals 1.25-1.8 g protein/kg 64-91 g total protein Fluid per MD, on HD NUTRITION DIAGNOSIS: Increased kcal and pro needs r/t renal dysfunction and wound healing as evidenced by pt w/ ESRD on HD, w/ unstageable R heel ulcer, currently w/ poor and variable intake. CURRENT DIET:Renal PO DIET RECOMMENDATIONS: Renal diet/ texture per COVERAGE ANALYST ADDITIONAL RECOMMENDATIONS: 1) Maintain calibrated bed scale wts 2) Nepro BID added (425kcal/19g prot each) Snacks BID in b/w meals as tolerated 3) Wound care: Nephrovite 1 tab daily, Louie BID as tolerated 4) Close monitoring of BG, noted hypoglycemic event upon adm 5) Encourage PO intake, continue appetite stimulant -family to assist if able during meals (appears to eat better with family) 6) Updated phos level (last phos elev 7.3 on 01/07)
--- NOTE | 2020-01-13 12:46 | Surgery Progress Note ---
Surgery Progress Note Subjective Additional Comments labs noted micro reviewed exam stable no n/v Objective Last 24 Hour Vital Signs Date Time Temp Pulse Resp B/P (MAP) Pulse Ox O2 Delivery O2 Flow Rate FiO2 01/13/20 08:00 60 01/13/20 08:00 97.7 57 18 18/9 (12) 97 01/13/20 04:00 58 01/13/20 04:00 97.5 58 16 154/66 (95) 100 01/13/20 00:05 70 144/65 01/13/20 00:00 97.4 54 16 133/62 (85) 100 01/13/20 00:00 54 01/12/20 20:25 98 Nasal Cannula 2.0 28 01/12/20 20:00 97.9 53 16 130/61 (84) 98 01/12/20 20:00 58 01/12/20 20:00 Nasal Cannula 2.0 Nasal Cannula 2.0 Nasal Cannula 2.0 01/12/20 18:04 56 163/68 01/12/20 18:03 163/68 01/12/20 16:00 97.7 56 14 163/68 (99) 98 01/12/20 16:00 52 01/12/20 13:00 137/71 I&O Intake and Output 01/12/20 01/13/20 19:00 07:00 Intake Total 475 ml Balance 475 ml Intake Oral 475 ml # Bowel Movements 1 Dressing: saturated Cardiovascular: RSR Respiratory: decreased breath sounds Abdomen: soft, non-tender, present bowel sounds Extremities: no cyanosis Laboratory Tests Test 01/12/20 16:04 01/12/20 21:00 01/13/20 05:55 01/13/20 07:35 POC Whole Blood Glucose 227 MG/DL (74-106) H 97 MG/DL (74-106) 177 MG/DL (74-106) H White Blood Count 5.4 K/UL (4.8-10.8) Red Blood Count 3.63 M/UL (4.20-5.40) L Hemoglobin 10.7 G/DL (12.0-16.0) L Hematocrit 33.5 % (37.0-47.0) L Mean Corpuscular Volume 92 FL (80-99) Mean Corpuscular Hemoglobin 29.5 PG (27.0-31.0) Mean Corpuscular Hemoglobin Concent 31.9 G/DL (32.0-36.0) L Red Cell Distribution Width 15.6 % (11.6-14.8) H Platelet Count 186 K/UL (150-450) Mean Platelet Volume 8.7 FL (6.5-10.1) Neutrophils (%) (Auto) 82.7 % (45.0-75.0) H Lymphocytes (%) (Auto) 9.1 % (20.0-45.0) L Monocytes (%) (Auto) 6.3 % (1.0-10.0) Eosinophils (%) (Auto) 1.1 % (0.0-3.0) Basophils (%) (Auto) 0.9 % (0.0-2.0) Sodium Level 131 MMOL/L (136-145) L Potassium Level 4.8 MMOL/L (3.5-5.1) Chloride Level 95 MMOL/L (98-107) L Carbon Dioxide Level 22 MMOL/L (21-32) Anion Gap 14 mmol/L (5-15) Blood Urea Nitrogen 41 mg/dL (7-18) H Creatinine 6.2 MG/DL (0.55-1.30) H Estimat Glomerular Filtration Rate 7.2 mL/min (>60) Glucose Level 180 MG/DL (74-106) H Calcium Level 8.0 MG/DL (8.5-10.1) L Total Bilirubin 0.5 MG/DL (0.2-1.0) Aspartate Amino Transf (AST/SGOT) 14 U/L (15-37) L Alanine Aminotransferase (ALT/SGPT) 17 U/L (12-78) Alkaline Phosphatase 298 U/L (46-116) H Total Protein 7.8 G/DL (6.4-8.2) Albumin 2.7 G/DL (3.4-5.0) L Globulin 5.1 g/dL Albumin/Globulin Ratio 0.5 (1.0-2.7) L Random Vancomycin Level 22.0 ug/mL Plan Problems: (1) Heel ulcer Assessment & Plan: identified to have heel ulcer on R upon admission. unstageable ulcer with small necrotic eschar. cover with optifoam and elevate heel left side with TMA (2) Hyperglycemia (3) CHF (congestive heart failure) (4) Long QT interval (5) Shortness of breath (6) Pleural effusion (7) Hypoxia (8) Pneumonia (9) Abdominal pain Assessment & Plan: 49F abd pain with HD. had after HD recently and acute worsening. came in for eval admitted for care and feels better now no n/v/f/c pain resolved but believes will occur after HD CT reviewed may need outpatient CTA or angio okay for diet currently abd exam benign ABDOMEN: Liver: Unremarkable. No mass. Gallbladder and bile ducts: Unremarkable. No calcified stones. No ductal dilation. Pancreas: Unremarkable. No mass. No ductal dilation. Spleen: Unremarkable. No splenomegaly. Adrenals: Unremarkable. No mass. Kidneys and ureters: Atrophy of the left kidney. Severe right hydronephrosis. No obvious obstructing stone or mass. Stomach and bowel: Unremarkable. No obstruction. No mucosal thickening. PELVIS: Appendix: No findings to suggest acute appendicitis. Bladder: Unremarkable. No mass. Reproductive: Unremarkable as visualized. ABDOMEN and PELVIS: Intraperitoneal space: Moderate abdominal and pelvic free fluid. No free air. Bones/joints: No acute fracture. No dislocation. Soft tissues: Unremarkable. Vasculature: Diffuse atherosclerotic vascular disease. No abdominal aortic aneurysm. Lymph nodes: Unremarkable. No enlarged lymph nodes. IMPRESSION: 1. Severe right hydronephrosis. No obvious obstructing stone or mass. 2. Moderate peritoneal and pelvic free fluid. 3. Prominent atherosclerotic vascular disease. Right deep veins: No DVT in the right internal jugular, subclavian, axillary, or brachial veins. The veins demonstrate normal color flow, are normally compressible, with normal phasic flow and/or augmentation response. Right superficial veins: No thrombus in the visualized right basilic and cephalic veins. ----- Left deep veins: No DVT in the left internal jugular, subclavian, axillary, or brachial veins. The veins demonstrate normal color flow, are normally compressible, with normal phasic flow and/or augmentation response. Left superficial veins: No thrombus in the visualized left basilic and cephalic veins. IMPRESSION: No deep venous thrombosis within the bilateral lower extremities. Ms. Sarmiento is a 49 year old female admitted for hypertensive emergency 241/111 and large right pleural effusion that required her to have ICU medical man agement and procedural intervention. The BP was managed and out to tele, currently awaiting for consent for VATS. Her labs and hemodynamic are stable. CT chest imaging reviewed. The trachea is pushed/pulled to left against pleural effusion, possible compression of esophagus may result dysphagia. The part of right lower lobe was concerning for chronic aspiration. PMH: ESRD, HD Mon/Fri/Fri, DM, HTN, CHF, right hydronephrosis, Findings: Ms. Sarmiento was able to arouse. She is oriented to self place and month. She follows commands. Oral exam revealed xerostomia and erythema of mucosa. The teeth is grossly intact. Her cough and voice is intact. Given her thin liquid, she tolerated well without overt s.s of aspiration. Given her oat meal, she dislike the flavor and spitted out. She kindly declined further PO trial stating " Not hungry" in Irish. Interpretation: 1. Grossly functional oropharyngeal swallow and laryngeal function 2. Possible esophageal dysphagia with large right pleural effusion with compression. 3. Possible chronic micro aspiration 4. Poor PO intake Plan: 1. Continue with regular diet now. -follow up with calorie count result, aspiration precaution and diet texture appropriateness (10) ESRD (end stage renal disease) on dialysis (11) Hypertensive emergency (12) Acute lower urinary tract infection (13) Dehydration Sergio Lara Jan 13, 2020 12:46
--- NOTE | 2020-01-13 13:20 | General Progress Note ---
Subjective ROS Limited/Unobtainable: No Allergies: Coded Allergies: No Known Allergies (Unverified , 11/10/12) Objective Last 24 Hour Vital Signs Date Time Temp Pulse Resp B/P (MAP) Pulse Ox O2 Delivery O2 Flow Rate FiO2 01/13/20 12:00 97.5 58 20 157/61 (93) 98 01/13/20 08:00 60 01/13/20 08:00 97.7 57 18 148/89 (108) 97 01/13/20 04:00 58 01/13/20 04:00 97.5 58 16 154/66 (95) 100 01/13/20 00:05 70 144/65 01/13/20 00:00 97.4 54 16 133/62 (85) 100 01/13/20 00:00 54 01/12/20 20:25 98 Nasal Cannula 2.0 28 01/12/20 20:00 97.9 53 16 130/61 (84) 98 01/12/20 20:00 58 01/12/20 20:00 Nasal Cannula 2.0 Nasal Cannula 2.0 Nasal Cannula 2.0 01/12/20 18:04 56 163/68 01/12/20 18:03 163/68 01/12/20 16:00 97.7 56 14 163/68 (99) 98 01/12/20 16:00 52 Intake and Output 01/12/20 01/13/20 19:00 07:00 Intake Total 475 ml Balance 475 ml Intake Oral 475 ml # Bowel Movements 1 Laboratory Tests 01/12/20 16:04: POC Whole Blood Glucose 227H 01/12/20 21:00: POC Whole Blood Glucose 97 01/13/20 05:55: POC Whole Blood Glucose 177H 01/13/20 07:35: White Blood Count 5.4, Red Blood Count 3.63L, Hemoglobin 10.7L, Hematocrit 33.5L , Mean Corpuscular Volume 92, Mean Corpuscular Hemoglobin 29.5, Mean Corpuscular Hemoglobin Concent 31.9L, Red Cell Distribution Width 15.6H, Platelet Count 186, Mean Platelet Volume 8.7, Neutrophils (%) (Auto) 82.7H, Lymphocytes (%) (Auto) 9.1L, Monocytes (%) (Auto) 6.3, Eosinophils (%) (Auto) 1.1, Basophils (%) (Auto) 0.9, Sodium Level 131L, Potassium Level 4.8, Chloride Level 95L, Carbon Dioxide Level 22, Anion Gap 14, Blood Urea Nitrogen 41H, Creatinine 6.2H, Estimat Glomerular Filtration Rate 7.2, Glucose Level 180H, Calcium Level 8.0L, Total Bilirubin 0.5, Aspartate Amino Transf (AST/SGOT) 14L, Alanine Aminotransferase (ALT/SGPT) 17, Alkaline Phosphatase 298H, Total Protein 7.8, Albumin 2.7L, Globulin 5.1, Albumin/Globulin Ratio 0.5L, Random Vancomycin Level 22.0 Height (Feet): 5 Weight (Pounds): 130 General Appearance: no apparent distress EENT: normal ENT inspection Neck: supple Cardiovascular: normal rate Respiratory/Chest: decreased breath sounds Abdomen: normal bowel sounds, non tender, soft Extremities: non-tender Assessment/Plan Assessment/Plan: htn ESRD anemia n/v DM large right sided pleural effusion hydronephrosis reglan tight BS control ppi fu labs HD per nephrology add marinol add bowel egimen repeat labs calorie count Mark Sy MD Jan 13, 2020 13:20
--- NOTE | 2020-01-13 15:19 | Nephrology Progress Note ---
Assessment/Plan Problem List: (1) ESRD (end stage renal disease) on dialysis (2) Abdominal pain (3) CHF (congestive heart failure) (4) Gastritis (5) Malignant hypertension (arteriolar nephrosclerosis) (6) Metabolic encephalopathy (7) Pneumonia Plan avoid tramadol in eskd, minimize opiates, reglan can also cause encephalopathy, serial HD, titrate bp meds, GI eval ongoing, refused po meds intermittently HD mwf Subjective Constitutional: Reports: weakness HEENT: Reports: blurred vision Genitourinary: Reports: no symptoms Neurologic/Psychiatric: Reports: pre-existing deficit Objective Objective Last 24 Hour Vital Signs Date Time Temp Pulse Resp B/P (MAP) Pulse Ox O2 Delivery O2 Flow Rate FiO2 01/13/20 12:00 97.5 58 20 157/61 (93) 98 01/13/20 09:00 Nasal Cannula 2.0 Nasal Cannula 2.0 Nasal Cannula 2.0 01/13/20 08:00 60 01/13/20 08:00 97.7 57 18 148/89 (108) 97 01/13/20 04:00 58 01/13/20 04:00 97.5 58 16 154/66 (95) 100 01/13/20 00:05 70 144/65 01/13/20 00:00 97.4 54 16 133/62 (85) 100 01/13/20 00:00 54 01/12/20 20:25 98 Nasal Cannula 2.0 28 01/12/20 20:00 97.9 53 16 130/61 (84) 98 01/12/20 20:00 58 01/12/20 20:00 Nasal Cannula 2.0 Nasal Cannula 2.0 Nasal Cannula 2.0 01/12/20 18:04 56 163/68 01/12/20 18:03 163/68 01/12/20 16:00 97.7 56 14 163/68 (99) 98 01/12/20 16:00 52 Intake and Output 01/12/20 01/13/20 19:00 07:00 Intake Total 475 ml Balance 475 ml Intake Oral 475 ml # Bowel Movements 1 Laboratory Tests 01/12/20 16:04: POC Whole Blood Glucose 227H 01/12/20 21:00: POC Whole Blood Glucose 97 01/13/20 05:55: POC Whole Blood Glucose 177H 01/13/20 07:35: White Blood Count 5.4, Red Blood Count 3.63L, Hemoglobin 10.7L, Hematocrit 33.5L , Mean Corpuscular Volume 92, Mean Corpuscular Hemoglobin 29.5, Mean Corpuscular Hemoglobin Concent 31.9L, Red Cell Distribution Width 15.6H, Platelet Count 186, Mean Platelet Volume 8.7, Neutrophils (%) (Auto) 82.7H, Lymphocytes (%) (Auto) 9.1L, Monocytes (%) (Auto) 6.3, Eosinophils (%) (Auto) 1.1, Basophils (%) (Auto) 0.9, Sodium Level 131L, Potassium Level 4.8, Chloride Level 95L, Carbon Dioxide Level 22, Anion Gap 14, Blood Urea Nitrogen 41H, Creatinine 6.2H, Estimat Glomerular Filtration Rate 7.2, Glucose Level 180H, Calcium Level 8.0L, Total Bilirubin 0.5, Aspartate Amino Transf (AST/SGOT) 14L, Alanine Aminotransferase (ALT/SGPT) 17, Alkaline Phosphatase 298H, Total Protein 7.8, Albumin 2.7L, Globulin 5.1, Albumin/Globulin Ratio 0.5L, Random Vancomycin Level 22.0 Height (Feet): 5 Weight (Pounds): 130 General Appearance: no apparent distress EENT: other - blind Cardiovascular: normal rate, regular rhythm Respiratory/Chest: lungs clear Abdomen: non tender, soft 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
[2020-01-13 16:00] VITALS: BP 162/75
--- NOTE | 2020-01-13 16:06 | NUR ---
NURSE NOTES: Patient been refusing medication despite RN offering at least 3x. Patient also refusing accuchecks today.
--- NOTE | 2020-01-13 16:59 | NUR ---
NURSE NOTES: Family Austin spoke with Dr Quick, will bring patient home on AMA. AMA form signed
--- NOTE | 2020-01-13 17:23 | NUR ---
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 97.9 HR 57 RR 18 B/P 157/61 NA 131 BUN 41 CR 6.2 IS: ZOSYN IV PROTONIX IV TELE STATUS
--- NOTE | 2020-01-13 17:48 | NUR ---
NURSE NOTES: Patient wheeled down to lobby, family with transportation via private vehicle.
[2020-01-13] MEDS ORDERED: Tubing IV Secondary IV ONE (17:49)
[2020-01-13] MEDS ORDERED: NS 275ml ONE (17:49)
--- NOTE | 2020-01-13 19:15 | Consultation ---
DATE OF CONSULTATION: 01/13/2020 CONSULTING SURGEON: Juan C Dumont MD SPECIALTY: Thoracic surgery. REFERRING PHYSICIAN: Vitor Quick MD HISTORY OF PRESENT ILLNESS: The patient is a 49-year-old female who was admitted to [facility] with epigastric abdominal pain associated with hemodialysis. During the course of her hospitalization, a chest CT scan was performed and demonstrated a right-sided loculated pleural effusion. The thoracic surgeon was then consulted for further evaluation. PAST MEDICAL HISTORY: Significant for: 1. End-stage renal disease. 2. Right hydronephrosis. 3. Hypertension. 4. Congestive heart failure. 5. Diabetes. PAST SURGICAL HISTORY: Significant for: 1. Right upper arm AV shunt. 2. Right nephrostomy tube. 3. Biliary stent. 4. Right foot partial amputation. MEDICATIONS: Reviewed. ALLERGIES: The patient has no known drug allergies. FAMILY HISTORY: Noncontributory. SOCIAL HISTORY: Noncontributory. PHYSICAL EXAMINATION: VITAL SIGNS: She is noted to be afebrile. Her vitals are within normal limits. CARDIAC: Regular rate and rhythm. No gallop or murmur. RESPIRATORY: Clear to auscultation on the left with decreased and crackles on the right. ABDOMEN: Soft, nondistended, nontender with normoactive bowel sounds. EXTREMITIES: Shows no evidence of cyanosis, clubbing, or edema. LABORATORY AND DIAGNOSTIC DATA: Laboratory studies were performed on January 13, 2020, showed WBC of 5.4, hemoglobin 10.7, hematocrit 33, and platelet count of 186,000. Sodium is 131, potassium 4.8, chloride is 95, bicarb is 22, BUN is 41, creatinine 6.2. A chest CT scan was performed on January 07, 2020, which showed a large right-sided loculated pleural effusion with compressive atelectasis. ASSESSMENT AND PLAN: This is a 49-year-old female who presented with a large right-sided loculated pleural effusion, most likely secondary to her renal failure. The patient was evaluated at bedside. After reviewing of clinical database, I recommend she undergo a right video-assisted thoracoscopic surgery for washout; however, the patient refused surgery and any associated surgical intervention. Thank you for referring this patient to my attention. If you have any questions in regard to this patient's clinical care, please do not hesitate to contact me. Khan M.D. DR: Jolene JOB#: [id number] CC:
[2020-01-14] MEDS ORDERED: Heparin Sod 1000 units/ml 10ml IV PRN (08:00)
--- NOTE | 2020-01-14 17:00 | Cardiology Report ---
APPROVED REPORT EKG Measurement Heart [id number] <Conclusion> Normal sinus rhythm Rightward axis Nonspecific ST abnormality Abnormal QRS-T angle, consider primary T wave abnormality Prolonged QT Abnormal ECG
== END 2020-01-13 17:50 | disposition left against medical advice (07) | DRG 199 ==
LOC: EDBD 22:04 → EMR 22:18 → EDBEDREQSVC 01-08 00:15 → EDBEDREQ 01-08 00:32 → ICU 01-08 00:49 → 2E 01-10 12:50
PROC: 5A1D70Z Performance of Urinary Filtration, Intermittent, Less than 6 Hours Per Day (ICD-10-PCS; principal; 2020-01-08)
DX: I16.0 Hypertensive urgency (principal); I13.2 Hypertensive heart and chronic kidney disease with heart failure and with stage 5 chronic kidney disease, or end stage renal disease; J15.5 Pneumonia due to Escherichia coli; E44.0 Moderate protein-calorie malnutrition; G93.41 Metabolic encephalopathy; K29.70 Gastritis, unspecified, without bleeding; N18.6 End stage renal disease; E11.22 Type 2 diabetes mellitus with diabetic chronic kidney disease; D63.1 Anemia in chronic kidney disease; E87.5 Hyperkalemia; I50.9 Heart failure, unspecified; L89.610 Pressure ulcer of right heel, unstageable; N13.30 Unspecified hydronephrosis; I45.81 Long QT syndrome; Z99.2 Dependence on renal dialysis; J90 Pleural effusion, not elsewhere classified; R10.13 Epigastric pain; H54.7 Unspecified visual loss
CPT/HCPCS: 36415; 71045; 71260; 74177; 76604; 80048; 80053; 80202; 82140; 82150; 82962; 83036; 83605; 83690; 83735; 83880; 84100; 84484; 84550; 84702; 85025; 85610; 85730; 86703; 86803; 87040; 87070; 87081; 87181; 87205; 87340; 93005; 93970; 96365; 96367; 96375; 96376; 99291; J1815; J2405; J2765; S5561; U0002